=== PATIENT | male | born 1990 | race Caucasian/White ===

== ENCOUNTER 2024-08-22 15:20 | Inpatient (IN) | payer BC, SELFPAY ==
[2024-08-22] VITALS (11 sets, daily range): BP systolic 111–138; BP diastolic 73–90; PULSE 68–117; RESP 14–24; TEMP 37.7–37.8; O2SAT 95–99; BMI 30.7; BMI 31.7
--- NOTE | 2024-08-22 17:03 | XRR_ITS ---
PROCEDURE INFORMATION: Exam: XR Left Foot Exam date and time: 08/22/2024 5:16 PM Age: 34 years old Clinical indication: Pain; Foot; Left; Lt great toe wound/infection; Concern for osteomyelitits TECHNIQUE: Imaging protocol: Radiologic exam of the left foot. Views: 3 or more views. COMPARISON: No relevant prior studies available. FINDINGS: Bones/joints: Cortical irregularity and bony resorption of the distal 1st phalanx with associated gas locules and soft tissue distortion of the tip of the 1st distal consistent with osteomyelitis. Atherosclerotic disease. Soft tissues: See Bones/joints finding. XR/XR foot LT min 3V* [id number] IMPRESSION: Osteomyelitis.
[2024-08-22] MEDS: piperacillin-tazobactam 3.375 GM in sodium chloride 0.9% (plus) 50 ML IV (17:13)
[2024-08-22] MEDS: sodium chloride 0.9% 1,000 ML 999 ML IV ×2 (17:13→18:26)
[2024-08-22 17:15] LABS: Basophils # 0.1 10^3/uL (0.0-0.1); Basophils % 0.5 %; Eosinophils % 0.2 %; Hematocrit 32.3 % (37-53); Lymphocytes # 1.5 10^3/uL (0.8-4.8); Lymphocytes % 10.9 %; Mean Corpuscular HGB Conc 33.7 g/dL (30-55); Mean Corpuscular Hemoglobin 27.9 pg (27-33); Mean Corpuscular Volume 82.8 fl (82-101); Mean Platelet Volume 9.4 fL (7.4-10.4); Monocytes # 1.1 10^3/uL (0.2-0.9); Monocytes % 8.3 %; Neutrophils # 10.98 10^3/uL (1.8-7.7); Neutrophils % 79.4 %; Nucleated Red Blood Cells % 0 %; Platelet Count 318 10^3/cmm (157-399); Red Cell Distribution Width 11.5 % (12.1-15.1); White Blood Count 13.81 10^3/uL (3.29-11.43)
[2024-08-22] MEDS: VANCOMYCIN ADD-Vantage 1,000 MG in 0.9% NaCl ADD-Vantage 250 ML 250 MG IV (17:16)
[2024-08-22 17:23] LABS: Lactic Sepsis W/Reflex 1.2 mmol/L (0.5-2.2)
[2024-08-22 17:24] LABS: Alanine Aminotransferase 23 U/L (0-41); Albumin Level 3.1 g/dL (3.5-5.2); Alkaline Phosphatase 102 U/L (40-130); Anion Gap 19.8 (5-19); Aspartate Amino Transferase 23 U/L (0-40); Blood Urea Nitrogen 9 mg/dL (6-20); C Reactive Protein 189.3 mg/L (0.0-4.9); Calcium 8.2 mg/dL (8.5-10.5); Carbon Dioxide 20 mmol/L (22-29); Chloride 92 mmol/L (98-107); Creatinine Clr Calc Pharmacy 158.4303; Globulin 3.9 g/dL (1.3-4.6); Glomerular Filtration Rate 109.4 mL/min (90-130); Glucose 394 mg/dL (65-115); Osmolality Calculated 281 mOsm/kg (285-295); Potassium 3.8 mmol/L (3.5-5.1); Sodium 128 mmol/L (136-145); Total Bilirubin 0.7 mg/dL (0.15-1.2)
[2024-08-22 17:30] LABS: Slide Review Slide Review Perform
[2024-08-22 17:31] LABS: Erythrocyte Sedimentation Rate 45 mm/hr (0-10)
--- NOTE | 2024-08-22 17:32 | ECG_ITS ---
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
--- NOTE | 2024-08-22 18:04 | ED_ITS ---
HPI - Extremity Problem 2 General: Chief complaint: Extremity Problem,Nontraumatic Stated complaint: lft leg swelling - discoloration on lft foot Time Seen by Provider: 08/22/24 15:54 History of Present Illness: Patient is a male who presents with worsening left great toe infection. He reports a chronic history of toe problems spanning multiple years with intermittent self-treatment using isopropyl alcohol. The condition significantly deteriorated following a recent 12.5-hour flight from the [facility] where he spent two weeks visiting his fianc?e. Since returning on night, he has noticed increased swelling, black tissue formation on the plantar surface, and a foul odor. The patient reports pain radiating up to just below his knee on the left side. He denies any fever. Patient has historically avoided medical care due to previous negative experiences in the . Of note, patient was previously evaluated for possible diabetes but reports being told he did not have it. He denies any previous professional medical treatment for this condition. Related Data Allergies Allergy/AdvReac Type Severity Reaction Status Date / Time No Known Allergies Allergy Verified 08/22/24 15:28 Course 2 Vital Signs: Vital signs: Vital Signs Temperature 99.8 F H 08/22/24 15:21 Pulse Rate 99 08/22/24 18:48 Respiratory Rate 24 H 08/22/24 18:48 Blood Pressure 115/86 08/22/24 18:48 Pulse Oximetry 99 08/22/24 18:48 Oxygen Delivery Me thod Room Air 08/22/24 18:48 MDM - Extremity (Nontraumatic) Medical Decision Making ROS: Constitutional: Denies fever Cardiovascular: Denies chest pain Respiratory: Denies shortness of breath Gastrointestinal: Denies nausea or vomiting Musculoskeletal: Reports left leg pain below knee All other systems reviewed and negative MEDICATIONS AND ALLERGIES: Medications: - Multivitamin Allergies: - No known drug allergies PAST HISTORICAL DATA: Past Medical History: - No significant medical history Social History: - 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 Mucous membranes moist Neck: Supple Respiratory: No increased work of breathing, no wheezing Cardiac: Tachycardic, regular rhythm Abdomen: Soft, non-distended, no rebound or guarding Extremities: - Left great toe: Circumferential redness with denuded/raw tissue - Black eschar noted on plantar surface - Foul-smelling drainage present - Proximal redness extending to left foot with swelling and warmth - Left calf with mild tenderness and swelling - Right lower extremity normal Neuro: Sensation intact in feet INITIAL IMPRESSION AND PLAN: Working Diagnosis: Left great toe osteomyelitis with gangrene, possible deep space infection, and newly diagnosed diabetes mellitus Plan: 1. IV antibiotics 2. Left foot X-ray 3. Lower extremity ultrasound to rule out DVT 4. Laboratory studies including CBC, CMP, CRP, lactic acid 5. Podiatry consultation 6. Admission to hospital TEST INTERPRETATIONS: X-ray Left Foot: Bony erosion of left great toe distal phalanx consistent with osteomyelitis. Gas formation noted within soft tissues concerning for deep space infection Laboratory Results: - WBC: 13.8 (Elevated) - Hemoglobin: 10.9 (Low) - Hematocrit: 32 (Low) - Platelets: 318 - Sodium: 128 (Low) - Potassium: 3.8 - Bicarbonate: 20 - BUN: 9 - Creatinine: 0.8 - Glucose: 394 (Significantly elevated) - Lactic acid: 1.2 - CRP: 189 (Significantly elevated) PROCEDURES: No procedures performed in the ED FINAL IMPRESSION: Based on all the above, my clinical impression is most compatible with: 1. Left great toe osteomyelitis with gangrene 2. Newly diagnosed diabetes mellitus 3. Cellulitis with possible deep space infection Although other conditions were also considered, they were deemed unlikely based on the clinical information available. CLINICAL DISPOSITION: The patient's current condition is stable but requires immediate intervention. The most appropriate and indicated disposition at this time is admission to the hospital under Dr. Sprague (Hospitalist) with Podiatry consultation for surgical management. Rationale for admission: Patient requires admission due to severe infection with osteomyelitis, newly diagnosed diabetes requiring management, and likely need for surgical intervention. The presence of gangrene, elevated inflammatory markers, and radiographic evidence of bone involvement necessitates inpatient management with IV antibiotics and close monitoring. RISK STRATIFICATION AND CLINICAL DECISION RULES APPLIED: No specific clinical decision rules were applicable to this presentation CASE SUMMARY: Patient presented with chronic left great toe infection that significantly worsened after recent international travel. Examination revealed gangrenous changes and imaging confirmed osteomyelitis. Labs demonstrated leukocytosis, newly diagnosed diabetes (glucose 394), and elevated inflammatory markers. Podiatry evaluated the patient and recommended admission for IV antibiotics and surgical management. The case is complicated by newly diagnosed diabetes and the presence of bone involvement requiring long-term antibiotic therapy and likely amputation. SEPSIS COMPLIANCE: Patient does not meet sepsis criteria as lactic acid is 1.2 DISCHARGE INSTRUCTIONS: Patient is being admitted to the hospital; discharge instructions deferred to the primary team Lab Data 08/22/24 15:55 08/22/24 15:55 Radiology Impressions Foot X-Ray 08/22/24 17:03 IMPRESSION: Osteomyelitis. Laboratory Results WBC 13.81 10^3/uL (3.29-11.43) H 08/22/24 15:55 RBC 3.90 10^6/uL (3.85-5.65) 08/22/24 15:55 Hgb 10.90 g/dL (11.27-16.99) L 08/22/24 15:55 Hct 32.3 % (37-53) L 08/22/24 15:55 MCV 82.8 fl (82-101) 08/22/24 15:55 MCH 27.9 pg (27-33) 08/22/24 15:55 MCHC 33.7 g/dL (30-55) 08/22/24 15:55 RDW 11.5 % (12.1-15.1) L 08/22/24 15:55 Plt Count 318 10^3/cmm (157-399) 08/22/24 15:55 MPV 9.4 fL (7.4-10.4) 08/22/24 15:55 Neut % (Auto) 79.4 % 08/22/24 15:55 Lymph % (Auto) 10.9 % 08/22/24 15:55 [place] % (Auto) 8.3 % 08/22/24 15:55 Eos % (Auto) 0.2 % 08/22/24 15:55 Baso % (Auto) 0.5 % 08/22/24 15:55 Neut # (Auto) 10.98 10^3/uL (1.8-7.7) H 08/22/24 15:55 Lymph # (Auto) 1.5 10^3/uL (0.8-4.8) 08/22/24 15:55 [place] # (Auto) 1.1 10^3/uL (0.2-0.9) H 08/22/24 15:55 Eos # (Auto) 0.0 10^3/uL (0.0-0.8) 08/22/24 15:55 Baso # (Auto) 0.1 10^3/uL (0.0-0.1) 08/22/24 15:55 Nucleated RBC % (auto) 0 % 08/22/24 15:55 Nucleated RBCs # 0.0 /100WBC 08/22/24 15:55 ESR 45 mm/hr (0-10) H 08/22/24 15:55 Sodium 128 mmol/L (136-145) L 08/22/24 15:55 Potassium 3.8 mmol/L (3.5-5.1) 08/22/24 15:55 Chloride 92 mmol/L (98-107) L 08/22/24 15:55 Carbon Dioxide 20 mmol/L (22-29) L 08/22/24 15:55 Anion Gap 19.8 (5-19) H 08/22/24 15:55 BUN 9 mg/dL (6-20) 08/22/24 15:55 Creatinine 0.8 mg/dL (0.7-1.2) 08/22/24 15:55 GFR Calculation 109.4 mL/min (90-130) 08/22/24 15:55 Glucose 394 mg/dL (65-115) H 08/22/24 15:55 Calculated Osmolality 281 mOsm/kg (285-295) L 08/22/24 15:55 Lactic Acid 1.2 mmol/L (0.5-2.2) 08/22/24 15:55 Calcium 8.2 mg/dL (8.5-10.5) L 08/22/24 15:55 Total Bilirubin 0.7 mg/dL (0.15-1.2) 08/22/24 15:55 AST 23 U/L (0-40) 08/22/24 15:55 ALT 23 U/L (0-41) 08/22/24 15:55 Alkaline Phosphatase 102 U/L (40-130) 08/22/24 15:55 C-Reactive Protein 189.3 mg/L (0.0-4.9) H 08/22/24 15:55 Total Protein 7.0 g/dL (6.6-8.7) 08/22/24 15:55 Albumin 3.1 g/dL (3.5-5.2) L 08/22/24 15:55 Globulin 3.9 g/dL (1.3-4.6) 08/22/24 15:55 Discharge Plan Discharge Condition: Stable Print Language: Greenlandic Coding Level of Care Code ED Auto Phone Installer for Carlee Cunningham
--- NOTE | 2024-08-22 19:19 | USR_ITS ---
PROCEDURE INFORMATION: Exam: US Duplex Left Lower Extremity Veins, Limited Exam date and time: 08/22/2024 8:24 PM Age: 34 years old Clinical indication: Edema, localized; Lower extremity, left; Additional info: Left leg swelling and pain TECHNIQUE: Imaging protocol: Real-time duplex ultrasound of the left extremity with 2-D lieberman scale, color Doppler flow and spectral waveform analysis including responses to compression and other maneuvers (when performed) with image documentation. Limited exam focused on the left lower extremity veins. COMPARISON: CR (LOW EXM, ) 08/22/2024 5:16 PM FINDINGS: Left deep veins: Unremarkable. The common femoral, femoral, proximal profunda femoral and popliteal veins are patent without thrombus. Normal Doppler waveforms. Normal compressibility and/or augmentation response. Superficial veins: Greater saphenous vein at the saphenofemoral junction is patent without thrombus. Soft tissues: Unremarkable. US/[place] [id number] IMPRESSION: No evidence of deep vein thrombosis in the left lower extremity.
--- NOTE | 2024-08-22 19:20 | P.CONIM_ITS ---
Providers/Reason For Consult 2 Consulting Physician/Specialty*: Goodman Marrero/podiatry Reason for Consult*: Gangrene left foot History of Present Illness History of Present Illness Luther Abdullahi is a 34 year old male presenting to the emergency department with worsening of wound to the left great toe, states that he has been battling ingrowing toenail infections of his left great toe intermittently for years, current episode of infection began several weeks ago, he was out of the country visiting his now [facility] and the [facility] for the past 2 weeks and spent time at the beach and was wearing sandals, patient is unaware of being diabetic. States that on his flight home from the [facility] he noticed foul odor increased redness and poor appearing wound states he decided to come to the emergency room department today, he lives in [place], works for a [employer]. States he had lunch this afternoon, denies any fevers or chills or lack of appetite. Patient denies any subjective nausea, vomiting, fever, chills, shortness of breath or chest pain. Review of Systems 2 General: Reports: 10 or more systems reviewed and unremarkable except in HPI and below Const: Denies: fever(s) or chills Eyes: Denies: change in vision Card: Denies: chest pain or palpitations Resp: Denies: dyspnea or productive cough GI: Denies: abdominal pain, nausea or vomiting : Denies: flank pain Musc: Reports: extremity swelling, joint stiffness and deformity Skin/Breast: Reports: erythema, sores, changes in skin color, dry skin, nail changes and change in hair Neuro: Reports: numbness in extremities, sensory changes and difficulty walking Psych: Denies: suicidal ideation Endo: Denies: change in body appearance Fito/Lymph: Denies: tender lymph nodes Medications/Allergies Allergies Allergy/AdvReac Type Severity Reaction Status Date / Time No Known Allergies Allergy Verified 08/22/24 15:28 Vitals/I&O/Wt Last Vital Signs Temp 99.8 F H 08/22/24 15:21 Pulse 99 08/22/24 18:48 Resp 24 H 08/22/24 18:48 BP 115/86 08/22/24 18:48 Pulse Ox 99 08/22/24 18:48 O2 Del Method Room Air 08/22/24 18:48 08/22/24 08/22/24 08/22/24 06:59 14:59 22:59 Intake Total 1300 / 1300 Balance 1300 / 1300 Weight last 48 hrs Weight 227 lb Physical Exam 2 Narrative: Gangrenous left great toe with cellulitis of the left forefoot, left great toe plantarly has necrosis of soft tissue down to bone with foul odor. Ingrowing toenail right great toe with mild erythema at the medial lateral border as well as clear fluid-filled bullae distal plantar tuft of right great toe. Const: COMMON NORMALS: no acute distress, patient oriented x3 and alert HENMT: COMMON NORMALS: normocephalic HEAD & SCALP: normocephalic Eye: COMMON NORMALS: Equal, round and reactive pupils present PUPIL: Yes Equal, round and reactive pupils present Resp: COMMON NORMALS: normal respiratory effort, No retractions and No use of accessory muscles Cardio: COMMON NORMALS: regular rate RATE: regular rate Extremity: COMMON NORMALS: no calf tenderness; negative for no pedal edema GENERAL: Yes deformity Neuro: COMMON NORMALS: patient oriented x3 SENSORIUM/ORIENTATION: Yes alert SENSORY EXAM: Yes extremities MONOFILAMENT EXAM PERFORMED: Yes MOTOR EXAM: 5/5 motor strength present throughout Psych: COMMON NORMALS: cooperative Skin: WOUNDS: Yes wounds noted NAILS: discolored, dystrophic and yellow and thickened Data 08/22/24 15:55 08/22/24 15:55 Micro: Microbiology 08/22/24 15:58 Blood Culture - Preliminary Blood SPECIMEN COLLECTED 08/22/24 15:55 Blood Culture - Preliminary Blood SPECIMEN COLLECTED A&P Assessment and plan (1) Diabetic peripheral neuropathy associated with type 2 diabetes mellitus: (2) Cellulitis of left foot: (3) Non-pressure chronic ulcer of other part of right foot with necrosis of bone: Performed bedside excisional debridement of left great toe with sterile dermal curette, explored wound and excisionally debrided devitalized epidermis, dermis, subcutaneous tissue myofascial layer and down to including bone at hallux interphalangeal joint left foot. Patient tolerated with minor discomfort secondary to neuropathy, postdebridement wound culture taken of the left great toe sent to microbiology for Gram stain culture and sensitivity. Dressing Betadine wet-to-dry left foot. (4) Gangrene of toe of left foot: (5) Ingrowing right great toenail: (6) Paronychia of great toe, right: Dressing of Kerlix and Coban covering right great toe. Plan 34-year-old newly diagnosed diabetic male presents with gangrenous changes to left great toe and paronychia of right great toe secondary to ingrown nail. X-ray left foot 3 views per my interpretation shows bone destruction of the distal phalanx greater than 50% of the phalanx has osteolysis and destructive/erosive changes consistent with osteomyelitis, soft tissue emphysema at left right toe. White blood cell count 13.8, ESR 51, glucose 394, C-reactive protein 189.3 Debridement as above, wound culture as above left great toe. Recommend admission to hospital service on IV antibiotics empirically plan for left great toe amputation and ingrowing nail avulsion right great toe tomorrow a.m., n.p.o. at midnight. Anticipating delayed closure due to the extent of surrounding cellulitis and poor surrounding soft tissue at amputation site. Patient might be a candidate for PICC line and long-term IV antibiotics pending intraoperative findings. PDMP PDMP Reviewed: Not Reviewed Consult Attestations 2 Medical Necessity Statement: Acute osteomyelitis left great toe, uncontrolled diabetes, gangrene left great toe requires hospital admission on IV antibiotics and surgical intervention. Coding Level of Care Code Acute Code for [facility] Diagnoses Diabetic peripheral neuropathy associated with type 2 diabetes mellitus E11.42 Cellulitis of left foot L03.116 Non-pressure chronic ulcer of other part of right foot with necrosis of bone L97.514 Gangrene of toe of left foot I96 Ingrowing right great toenail L60.0 Paronychia of great toe, right L03.031 Comment CPT code 22768
--- NOTE | 2024-08-22 19:22 | W.ED.EXTPRO ---
HPI - Extremity Problem General: Chief complaint: Extremity Problem,Nontraumatic Stated complaint: lft leg swelling - discoloration on lft foot Time Seen by Provider: 08/22/24 15:54 History of Present Illness: Patient is a male who presents with worsening left great toe infection. He reports a chronic history of toe problems spanning multiple years with intermittent self-treatment using isopropyl alcohol. The condition significantly deteriorated following a recent 12.5-hour flight from the [facility] where he spent two weeks visiting his fianc?e. Since returning on night, he has noticed increased swelling, black tissue formation on the plantar surface, and a foul odor. The patient reports pain radiating up to just below his knee on the left side. He denies any fever. Patient has historically avoided medical care due to previous negative experiences in the . Of note, patient was previously evaluated for possible diabetes but reports being told he did not have it. He denies any previous professional medical treatment for this condition. Related Data Allergies Allergy/AdvReac Type Severity Reaction Status Date / Time No Known Allergies Allergy Verified 08/22/24 15:28 Course Vital Signs: Vital signs: Vital Signs Temperature 99.8 F H 08/22/24 15:21 Pulse Rate 100 08/22/24 20:07 Respiratory Rate 21 H 08/22/24 20:07 Blood Pressure 122/78 08/22/24 20:07 Pulse Oximetry 97 08/22/24 20:07 Oxygen Delivery Me thod Room Air 08/22/24 18:48 MDM - Extremity (Nontraumatic) Medical Decision Making ROS: Constitutional: Denies fever Cardiovascular: Denies chest pain Respiratory: Denies shortness of breath Gastrointestinal: Denies nausea or vomiting Musculoskeletal: Reports left leg pain below knee All other systems reviewed and negative MEDICATIONS AND ALLERGIES: Medications: - Multivitamin Allergies: - No known drug allergies PAST HISTORICAL DATA: Past Medical History: - No significant medical history Past Surgical History: - Nasal surgery at age 2 Social History: - 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 Mucous membranes moist Neck: Supple Respiratory: No increased work of breathing, no wheezing Cardiac: Tachycardic, regular rhythm Abdomen: Soft, non-distended, no rebound or guarding Extremities: - Left great toe: Circumferential redness with denuded/raw tissue - Black eschar noted on plantar surface - Foul-smelling drainage present - Proximal redness extending to left foot with swelling and warmth - Left calf with mild tenderness and swelling - Right lower extremity normal Neuro: Sensation intact in feet INITIAL IMPRESSION AND PLAN: Working Diagnosis: Left great toe osteomyelitis with gangrene, possible deep space infection, and newly diagnosed diabetes mellitus Plan: 1. IV antibiotics 2. Left foot X-ray 3. Lower extremity ultrasound to rule out DVT 4. Laboratory studies including CBC, CMP, CRP, lactic acid 5. Podiatry consultation 6. Admission to hospital TEST INTERPRETATIONS: X-ray Left Foot: Bony erosion of left great toe distal phalanx consistent with osteomyelitis. Gas formation noted within soft tissues concerning for deep space infection Laboratory Results: - WBC: 13.8 (Elevated) - Hemoglobin: 10.9 (Low) - Hematocrit: 32 (Low) - Platelets: 318 - Sodium: 128 (Low) - Potassium: 3.8 - Bicarbonate: 20 - BUN: 9 - Creatinine: 0.8 - Glucose: 394 (Significantly elevated) - Lactic acid: 1.2 - CRP: 189 (Significantly elevated) FINAL IMPRESSION: Based on all the above, my clinical impression is most compatible with: 1. Left great toe osteomyelitis with gangrene 2. Newly diagnosed diabetes mellitus 3. Cellulitis with possible deep space infection CLINICAL DISPOSITION: The patient's current condition is stable but requires immediate intervention. The most appropriate and indicated disposition at this time is admission to the hospital under Dr. Sprague (Hospitalist) with Podiatry consultation for surgical management. Rationale for admission: Patient requires admission due to severe infection with osteomyelitis, newly diagnosed diabetes requiring management, and likely need for surgical intervention. The presence of gangrene, elevated inflammatory markers, and radiographic evidence of bone involvement necessitates inpatient management with IV antibiotics and close monitoring. CASE SUMMARY: Patient presented with chronic left great toe infection that significantly worsened after recent international travel. Examination revealed gangrenous changes and imaging confirmed osteomyelitis. Labs demonstrated leukocytosis, newly diagnosed diabetes (glucose 394), and elevated inflammatory markers. Podiatry evaluated the patient and recommended admission for IV antibiotics and surgical management. The case is complicated by newly diagnosed diabetes and the presence of bone involvement requiring long-term antibiotic therapy and likely amputation. SEPSIS COMPLIANCE: Patient does not meet sepsis criteria as lactic acid is 1.2 Lab Data I reviewed the patient's lab results. 08/22/24 15:55 08/22/24 15:55 Radiology Impressions Foot X-Ray 08/22/24 17:03 IMPRESSION: Osteomyelitis. Laboratory Results WBC 13.81 10^3/uL (3.29-11.43) H 08/22/24 15:55 RBC 3.90 10^6/uL (3.85-5.65) 08/22/24 15:55 Hgb 10.90 g/dL (11.27-16.99) L 08/22/24 15:55 Hct 32.3 % (37-53) L 08/22/24 15:55 MCV 82.8 fl (82-101) 08/22/24 15:55 MCH 27.9 pg (27-33) 08/22/24 15:55 MCHC 33.7 g/dL (30-55) 08/22/24 15:55 RDW 11.5 % (12.1-15.1) L 08/22/24 15:55 Plt Count 318 10^3/cmm (157-399) 08/22/24 15:55 MPV 9.4 fL (7.4-10.4) 08/22/24 15:55 Neut % (Auto) 79.4 % 08/22/24 15:55 Lymph % (Auto) 10.9 % 08/22/24 15:55 [place] % (Auto) 8.3 % 08/22/24 15:55 Eos % (Auto) 0.2 % 08/22/24 15:55 Baso % (Auto) 0.5 % 08/22/24 15:55 Neut # (Auto) 10.98 10^3/uL (1.8-7.7) H 08/22/24 15:55 Lymph # (Auto) 1.5 10^3/uL (0.8-4.8) 08/22/24 15:55 [place] # (Auto) 1.1 10^3/uL (0.2-0.9) H 08/22/24 15:55 Eos # (Auto) 0.0 10^3/uL (0.0-0.8) 08/22/24 15:55 Baso # (Auto) 0.1 10^3/uL (0.0-0.1) 08/22/24 15:55 Nucleated RBC % (auto) 0 % 08/22/24 15:55 Nucleated RBCs # 0.0 /100WBC 08/22/24 15:55 ESR 45 mm/hr (0-10) H 08/22/24 15:55 ESR 51 mm/hr (0-10) H 08/22/24 15:55 Sodium 128 mmol/L (136-145) L 08/22/24 15:55 Potassium 3.8 mmol/L (3.5-5.1) 08/22/24 15:55 Chloride 92 mmol/L (98-107) L 08/22/24 15:55 Carbon Dioxide 20 mmol/L (22-29) L 08/22/24 15:55 Anion Gap 19.8 (5-19) H 08/22/24 15:55 BUN 9 mg/dL (6-20) 08/22/24 15:55 Creatinine 0.8 mg/dL (0.7-1.2) 08/22/24 15:55 GFR Calculation 109.4 mL/min (90-130) 08/22/24 15:55 Glucose 394 mg/dL (65-115) H 08/22/24 15:55 Calculated Osmolality 281 mOsm/kg (285-295) L 08/22/24 15:55 Lactic Acid 1.2 mmol/L (0.5-2.2) 08/22/24 15:55 Calcium 8.2 mg/dL (8.5-10.5) L 08/22/24 15:55 Total Bilirubin 0.7 mg/dL (0.15-1.2) 08/22/24 15:55 AST 23 U/L (0-40) 08/22/24 15:55 ALT 23 U/L (0-41) 08/22/24 15:55 Alkaline Phosphatase 102 U/L (40-130) 08/22/24 15:55 C-Reactive Protein 189.3 mg/L (0.0-4.9) H 08/22/24 15:55 Total Protein 7.0 g/dL (6.6-8.7) 08/22/24 15:55 Albumin 3.1 g/dL (3.5-5.2) L 08/22/24 15:55 Globulin 3.9 g/dL (1.3-4.6) 08/22/24 15:55 All radiology interpretation(s) finalized by discharge Discharge Plan Discharge Patient Disposition: Admitted As Inpatient Clinical Impression: Cellulitis, Gangrene, Osteomyelitis Condition: Stable Coding Level of Care Code ED Interactive Developer for Carlee Cunningham
[2024-08-22 19:36] LABS: Erythrocyte Sedimentation Rate 51 mm/hr (0-10)
--- NOTE | 2024-08-22 19:54 | PC.NURSE ---
Pt declined pain meds x 3. Pt verbalized understanding to let nursing or provider know if he would like pain meds.
--- NOTE | 2024-08-22 22:33 | P.HP_ITS ---
Providers/Chief Complaint 2 Admitting Physician: Perla Singh MD Chief Complaint: lft leg swelling - discoloration on lft foot History of Present Illness Luther Abdullahi is a 34 yo man [employer] with no medical hx except for a hx of I&D of the posterior neck in 2019, who presents to the ED on 08/22/2024 w/ complaints of L. foot pain and swelling as well as malodorous drainage of the L. great toe. The patient states that he has had difficulty with the L. great toes for years, consisting of in-grown toe nails and wounds. He states that he returned from the [facility] on 08/18/2024. He felt tenderness on the L. great toe on 08/19, but felt that it was due to him being on the plane for 12.5 hrs. On 08/20, the tenderness did not improve. By 08/21, he started noticing malodorous drainage, so he cleaned it w/ isopropyl alcohol and bandaged it. On 08/22 while meeting his parents after mu-ism, his parents noticed that he had difficulty walking and suggested that he present to the ED. He was visiting the [facility] for 2 weeks and he recalls stepping on something in the ocean and scratched the great toe. He endorses chills, but he associated it with the change in weather from the tropical climate of the [facility] to the 60 degree weather here. He endorses fatigue and malaise, but attributed it to malaise and fatigue. He denies visual disturbances, CP, palpitations, SOB, GI or symptoms. Of note, he tells me that in 2019, when he was getting the I & D of his posterior neck in [place], [place], the nurse for the physician doing the I&D mentioned that he might have had diabetes, but the physician told her that they did not have time to address that. In the ED, he was tachycardic and tachypneic. He had a leukocytosis of 13.81, and a lactic acid of 1.2. He was given 2 L NS IVF bolus, Vanco, 3.375 g Zosyn in the ED. The lead network architect was consulted who plans to take the patient to the OR in the a.m. The Staff Veterinarian also took wound cx. Review of Systems 2 Const: Reports: chills, fatigue and malaise; Denies: fever(s), body aches, night sweats or diaphoresis Eyes: Denies: change in vision or blurry vision ENMT: Denies: odynophagia, ear or mastoid pain, ear discharge, nasal discharge or nasal congestion Card: Reports: swelling of feet/ankles; Denies: chest pain, lightheadedness or syncope Resp: Reports: productive cough; Denies: dyspnea or wheezing GI: Denies: abdominal pain, nausea, vomiting, diarrhea, constipation, hematochezia or melena : Denies: dysuria, urinary frequency, urinary urgency or hematuria Musc: Reports: joint pain (L. foot and L. great toe pain ) and joint swelling (L. foot and L. great toe pain ) Skin/Breast: Reports: erythema, skin tenderness and new lesions Neuro: Denies: headache(s), dizziness or seizure-like activity Psych: Denies: anxiety, depression, suicidal ideation or homicidal ideation Endo: Denies: polyuria, polydipsia, tired all the time, cold intolerance or heat intolerance Fito/Lymph: Denies: easy bruising or easy bleeding All/Imm: Denies: food intolerance Medications/Allergies Allergies Allergy/AdvReac Type Severity Reaction Status Date / Time No Known Allergies Allergy Verified 08/22/24 15:28 PFSH Acute 2 PFSH: Surgical History History of nasal surgery at age 3 due to being hit by a baseball. History of incision and drainage of his posterior neck due to a spider bite in 2018 Family History (Updated 08/22/24 @ 22:46 by Perla Singh MD) Father Diabetes mellitus, type 2 Hypertension Atrial fibrillation Social History (Updated 08/22/24 @ 23:31 by Perla Singh MD) Smoking and tobacco/nicotine status: never used tobacco/nicotine Alcohol intake: never Substance/Drug Use: former Date of last use: 2021 Former substance use details: last tried an edible in 2021 Vitals/I&O/Wt Last Vital Signs Temp 100.0 F H 08/22/24 21:23 Pulse 99 08/22/24 21:23 Resp 19 H 08/22/24 21:23 BP 133/90 08/22/24 21:23 Pulse Ox 97 08/22/24 21:23 O2 Del Method Room Air 08/22/24 21:23 08/22/24 08/22/24 08/22/24 06:59 14:59 22:59 Intake Total 2300 / 2300 Balance 2300 / 2300 Weight last 48 hrs Weight 106.141 kg Weight 102.965 kg Physical Exam 2 Narrative: Constitutional: GENERAL APPEARANCE: cooperative, comfortable. HENT: HEAD & SCALP: normocephalic and atraumatic; NOSE: external nose not normal EXTERNAL EAR: no external ears normal MOUTH: Normal oral and palatal mucosa present THROAT: posterior oropharynx normal Eye: PERRL, EOMI, normal conjunctiva b/l Neck: normal visual inspection, trachea midline, No anterior neck swelling, No tracheal deviation, no submandibular swelling, Thyroid normal , cervical ROM normal Lymph: no cervical, supraclavicular LAD Resp: no use of accessory muscles, CTAB, no w/r/r Cardio: RRR, no m/r/g, or clicks. 2+ radial and DP pulses. GI: normoactive bowel sounds, non-tender, non-distended, no guarding, no rigidity, no rebound tenderness, no hepatosplenomegaly. : (-) Junior in place draining urine, (-) CVA tenderness Back/Pelvis: Deferred Extremity: R. in-grown toe-nail wrapped. L. toe wrapped w/ malodorous drainage noted on the soaked gauze. L. foot is swollen Neuro: AO to person, place and time. CN normal except as noted. Normal gait present. 5/5 motor strength present throughout. Normal motor muscle tone present throughout. No tremor noted. No motor abnormalities present. No motor fasciculations present Psych: APPEARANCE: Yes grossly normal ATTITUDE: Yes calm and Yes engaged ACTIVITY/MOTOR BEHAVIOR: Yes appropriate eye contact SPEECH: Yes normal speech MOOD & AFFECT: Yes euthymic mood THOUGHT PROCESS: Normal thought process present THOUGHT CONTENT: Yes Normal thought content present ATTENTION/CONCENTRATION: Yes attention grossly intact MEMORY/COGNITION: Yes memory grossly intact Data 08/23/24 04:25 08/23/24 04:25 Micro: Microbiology 08/22/24 15:58 Blood Culture - Preliminary Blood SPECIMEN COLLECTED 08/22/24 15:55 Blood Culture - Preliminary Blood SPECIMEN COLLECTED A&P Assessment and plan (1) Sepsis: (2) Diabetic wet gangrene of the foot: (3) Paronychia of great toe, right: (4) Cellulitis of left foot: (5) Ingrowing right great toenail: Plan Luther Abdullahi is a 34 yo man [employer] with no medical hx except for a hx of I&D of the posterior neck in 2019, who presents to the ED on 08/22/2024 w/ complaints of L. foot pain and swelling as well as malodorous drainage of the L. great toe. #Sepsis #L. Great Toe wet gangrene #L. Great toe Cellulitis and Abscess #Concern for osteomyelitis - ESR, CRP ordered. MRI of L. foot ordered. - Podiatry consulted. Plan for OR in the AM. Patient made n.p.o. after midnight - F/u BCx,Wound Cx done in the ED. - Continue Vanc/Zosyn, IVF. Pain control ordered. #Ingrown R. great toe nail - To be addressed in the OR by the Staff Veterinarian?, according to the patient. #newly dx'ed DM2 - F/u A1c. Ordered Insulin lantus 20units BID + low-dose SSI with meals + high dose SSI with meals. -Counseled patient on his diabetes diagnosis, and the need for PCP. Did not discuss the need for opthalmology eval. - F/u lipid panel. DVT ppx: Nothing for now. Pending Operation. PDMP PDMP Reviewed: Not Reviewed Attestations 2 Medical Necessity Statement*: The patient is to be hospitalized for greater than 2 midnights for sepsis, left great toe gangrene, left great toe cellulitis with abscess concerning for osteomyelitis, and new onset diabetes. Coding Level of Care Code 31674 High Time for a total of 80 minutes, includes reviewing past or interval history, examining/interviewing patient, placing orders, counseling patient/family/other support, updating patient/family/other support, discussing plan of care with staff, communicating with other healthcare providers, documenting encounter and coordinating care Other Coding Information Focused coding review requested Diagnoses Sepsis A41.9 Diabetic wet gangrene of the foot E11.52 Paronychia of great toe, right L03.031 Cellulitis of left foot L03.116 Ingrowing right great toenail L60.0
[2024-08-22 23:45] LABS: Estmated Average Glucose 306; Hemoglobin A1C 12.3 % (4.0-6.0)
[2024-08-22 23:49] LABS: Erythrocyte Sedimentation Rate 64 mm/hr (0-10)
[2024-08-23] VITALS (19 sets, daily range): BP systolic 103–149; BP diastolic 56–95; PULSE 78–102; RESP 16–18; TEMP 36.6–37.6; O2SAT 91–98
[2024-08-23] MEDS: sodium chloride 0.9% 1,000 ML 500 ML IV (00:05)
[2024-08-23 00:16] LABS: Procalcitonin 0.28 ng/mL (0-0.5); Thyroid Stimulating Hormone 1.14 uIU/mL (0.27-4.20)
[2024-08-23] MEDS: piperacillin-tazobactam 4.5 GM in sodium chloride 0.9% (plus) 50 ML IV ×3 (00:24→14:55)
[2024-08-23 00:28] LABS: Anion Gap 17.6 (5-19); Blood Urea Nitrogen 6 mg/dL (6-20); Calcium 7.7 mg/dL (8.5-10.5); Carbon Dioxide 21 mmol/L (22-29); Chloride 99 mmol/L (98-107); Creatinine Clr Calc Pharmacy 257.1585; Glomerular Filtration Rate 188.1 mL/min (90-130); Glucose 243 mg/dL (65-115); Osmolality Calculated 284 mOsm/kg (285-295); Potassium 3.6 mmol/L (3.5-5.1); Sodium 134 mmol/L (136-145)
[2024-08-23 00:31] LABS: Glucose Point of Care 228 mg/dL (70-110)
[2024-08-23] MEDS: ketorolac 30 mg/mL INJ IVP ×2 (00:50→20:06)
[2024-08-23] MEDS: insulin glargine 100 units/1 mL 20 UNIT SUBCUT ×3 (00:51→22:03)
[2024-08-23] MEDS: vancomycin 1,500 MG/300 ML PIGGYBACK 300 MG IV ×3 (01:38→22:01)
--- NOTE | 2024-08-23 03:22 | PC.NURSE ---
patient came to the floor from the ER department per wheel chair, dad at bedside. patient is NPO at this time for amputation of his left great toe. foot wrapped with gauze and kyaw bandage per dr mena in er. patient alert and oriented to person place date and time. patient blodd pressure stable at 133/87. patient running a low grade fever of 100.0 oral. patient blood sugar is 243, hospitalist dr egan ordered 20units of lantus insulin to be given. patient tolerated well. patient has NKA. patient has no complaints of pain or discomfort at this time.
[2024-08-23] MEDS: lactated ringers 1,000 ML 100 ML IV ×2 (04:17→17:11)
[2024-08-23 04:44] LABS: Basophils # 0.1 10^3/uL (0.0-0.1); Basophils % 0.5 %; Eosinophils # 0.1 10^3/uL (0.0-0.8); Eosinophils % 0.6 %; Hematocrit 28.7 % (37-53); Lymphocytes # 1.8 10^3/uL (0.8-4.8); Lymphocytes % 16.3 %; Mean Corpuscular HGB Conc 32.8 g/dL (30-55); Mean Corpuscular Hemoglobin 28.1 pg (27-33); Mean Corpuscular Volume 85.7 fl (82-101); Mean Platelet Volume 9.1 fL (7.4-10.4); Monocytes # 0.8 10^3/uL (0.2-0.9); Monocytes % 7.3 %; Neutrophils # 8.16 10^3/uL (1.8-7.7); Neutrophils % 74.7 %; Nucleated Red Blood Cells % 0 %; Platelet Count 281 10^3/cmm (157-399); Red Blood Count 3.35 10^6/uL (3.85-5.65); Red Cell Distribution Width 11.6 % (12.1-15.1); White Blood Count 10.93 10^3/uL (3.29-11.43)
[2024-08-23 04:57] LABS: INR 1.13 (0.8-1.2); Partial Thromboplastin Time 33.3 SECONDS (23.9-36.7)
[2024-08-23 05:03] LABS: Alanine Aminotransferase 18 U/L (0-41); Albumin Level 2.7 g/dL (3.5-5.2); Alkaline Phosphatase 89 U/L (40-130); Anion Gap 14.5 (5-19); Aspartate Amino Transferase 13 U/L (0-40); Blood Urea Nitrogen 7 mg/dL (6-20); Calcium 7.5 mg/dL (8.5-10.5); Carbon Dioxide 23 mmol/L (22-29); Chloride 103 mmol/L (98-107); Creatinine Clr Calc Pharmacy 214.0801; Globulin 3.6 g/dL (1.3-4.6); Glomerular Filtration Rate 152.4 mL/min (90-130); Glucose 208 mg/dL (65-115); Osmolality Calculated 288 mOsm/kg (285-295); Phosphorus 2.7 mg/dL (2.5-4.5); Potassium 3.5 mmol/L (3.5-5.1); Sodium 137 mmol/L (136-145); Total Bilirubin 0.5 mg/dL (0.15-1.2); Total Protein 6.3 g/dL (6.6-8.7)
[2024-08-23] MEDS: pantoprazole 40 mg SDV IVP (05:57)
[2024-08-23 06:46] LABS: Glucose Point of Care 232 mg/dL (70-110)
--- NOTE | 2024-08-23 07:08 | PHA.VACGOAL ---
Vancomycin Goal - Goal Vancomycin Goal:: 15-20 mg/L Vancomycin Indication:: Osteo - Therapy Current therapy:: Pip/Tazo Day of therpy:: Day [1]of [] . Actual body weight (kg): 105.914 kg - Data Labs: WBC 10.93 10^3/uL (3.29-11.43) 08/23/24 04:25 RBC 3.35 10^6/uL (3.85-5.65) L 08/23/24 04:25 Hgb 9.40 g/dL (11.27-16.99) L 08/23/24 04:25 Hct 28.7 % (37-53) L 08/23/24 04:25 MCV 85.7 fl (82-101) 08/23/24 04:25 MCH 28.1 pg (27-33) 08/23/24 04:25 MCHC 32.8 g/dL (30-55) 08/23/24 04:25 RDW 11.6 % (12.1-15.1) L 08/23/24 04:25 Sodium 137 mmol/L (136-145) 08/23/24 04:25 Potassium 3.5 mmol/L (3.5-5.1) 08/23/24 04:25 Chloride 103 mmol/L (98-107) 08/23/24 04:25 Carbon Dioxide 23 mmol/L (22-29) 08/23/24 04:25 Anion Gap 14.5 (5-19) 08/23/24 04:25 BUN 7 mg/dL (6-20) 08/23/24 04:25 Creatinine 0.6 mg/dL (0.7-1.2) L 08/23/24 04:25 GFR Calculation 152.4 mL/min (90-130) H 08/23/24 04:25 Treatment plan:: new consult Regimen:: New start vancomycin for Osteomyelitis. No prior vancomycin history found. Received 1000 mg dose in ED on 08/22 @1700. Started on maintenance dose of 1500 mg q12h by telepharmacy. Dose adjusted to 1500 mg q8h due to renal function and goal trough range of 15-20 mg/L.
[2024-08-23 07:59] LABS: Chol HDL Ratio 6.43 mg/dL (1.0-5.00); Cholesterol 135 mg/dL (0-200); HDL Cholesterol 21 mg/dL (60-100); LDL Cholesterol Calculated 95 mg/dL (50-129); LDL HDL Ratio 4.52 RATIO (0.00-3.22); Triglycerides 94 mg/dL (0-150)
[2024-08-23] MEDS: sodium chloride 0.9% 1,000 ML 30 ML IV (08:00)
--- NOTE | 2024-08-23 09:16 | ANES.PREANE2 ---
Pre-Anesthetic Assessment Height/Weight: Height 1.83 m Weight 105.914 kg Temp Pulse Resp BP Pulse Ox O2 Del Method 99.6 F 78 18 140/84 98 Room Air 08/23/24 08:00 08/23/24 08:00 08/23/24 08:00 08/23/24 08:00 08/23/24 07:35 08/23/24 07:35 Operation Date: 08/23/24 09:05 Proposed Procedures p Partial amputation of left foot(Left) - Saturnino Person DPM Familial anesthetic complications: Noen Was Beta Senia taken within 24 hours: N/A Was Clonidine taken within 24 hours: N/A Last intake: > 8 hrs Social No alcohol and No tobacco Exam alert, oriented x 3, clear to auscultation bilaterally and regular rate & rhythm Airway Mallampati: Class II Dentition: full Metabolic Diabetes Mellitus (newly diagnosed - not on any medications) Anesthetic Plan ASA status: 3 Anesthesia: MAC Risk of > 500 ml blood loss (7ml/kg in children): No Medications/Allergies Home Medications ?Medication ?Instructions ?Recorded ?Confirmed ?Last Taken ?Type No Known Home Medications 08/23/24 08/23/24 Unknown History Allergies Allergy/AdvReac Type Severity Reaction Status Date / Time No Known Allergies Allergy Verified 08/22/24 15:28 Current Medications Generic Name Dose Route Start Last Admin Trade Name Tony PRN Reason Stop Dose Admin Piperacillin Sod/Tazobactam 50 mls @ 12.5 mls/hr 08/23/24 00:00 08/23/24 04:17 Sod 4.5 gm/ Sodium Chloride IV Infused Q8H KIMBERLY Infusion Protocol Lactated Ringer's 1,000 mls @ 100 mls/hr 08/23/24 00:30 08/23/24 04:17 Lactated Ringers IV 100 mls/hr .Q10H KIMBERLY Administration Insulin Glargine 20 unit 08/23/24 00:30 08/23/24 00:51 Insulin Glargine 100 Units/1 Ml SUBCUT 20 unit BEDTIME KIMBERLY Administration Insulin Human Lispro 0 unit 08/23/24 08:00 08/23/24 08:33 Insulin Lispro 100 Unit/1 Ml SUBCUT Not Given TIDWM KIMBERLY Protocol Ketorolac Tromethamine 30 mg 08/23/24 00:12 08/23/24 00:50 Ketorolac 30 Mg/Ml Inj IVP 08/25/24 00:11 30 mg Q6H PRN Administration MODERATE PAIN PFSH Anesthesia Surgical History History of nasal surgery at age 3 due to being hit by a baseball. History of incision and drainage of his posterior neck due to a spider bite in 2019 Family History (Updated 08/22/24 @ 22:46 by Perla Singh MD) Father Diabetes mellitus, type 2 Hypertension Atrial fibrillation Social History (Updated 08/22/24 @ 23:31 by Perla Singh MD) Smoking and tobacco/nicotine status: never used tobacco/nicotine Alcohol intake: never Substance/Drug Use: former Date of last use: 2021 Former substance use details: last tried an edible in 2021 Data Anesthesia 08/23/24 04:25 08/23/24 04:25 Short CBC 08/22/24 08/23/24 Range/Units 15:55 04:25 WBC 13.81 H 10.93 (3.29-11.43) 10^3/uL Hgb 10.90 L 9.40 L (11.27-16.99) g/dL Hct 32.3 L 28.7 L (37-53) % MCV 82.8 85.7 (82-101) fl Plt Count 318 281 (157-399) 10^3/cmm Neut % (Auto) 79.4 74.7 % Neut # (Auto) 10.98 H 8.16 H (1.8-7.7) 10^3/uL BMP 08/22/24 08/22/24 08/23/24 15:55 23:24 04:25 Sodium 128 L 134 L 137 Potassium 3.8 3.6 3.5 Chloride 92 L 99 103 Carbon Dioxide 20 L 21 L 23 BUN 9 6 7 Creatinine 0.8 0.5 L 0.6 L Glucose 394 H 243 H 208 H Calcium 8.2 L 7.7 L 7.5 L Liver Function 08/22/24 08/23/24 Range/Units 15:55 04:25 Total Bilirubin 0.7 0.5 (0.15-1.2) mg/dL AST 23 13 (0-40) U/L ALT 23 18 (0-41) U/L Alkaline Phosphatase 102 89 (40-130) U/L Albumin 3.1 L 2.7 L (3.5-5.2) g/dL Coags 08/22/24 08/22/24 08/22/24 15:55 15:55 15:55 ESR 45 H 51 H 64 H PT INR APTT C-Reactive Protein 189.3 H 08/23/24 04:25 ESR Cancelled PT 15.30 H INR 1.13 APTT 33.3 C-Reactive Protein Microbiology 08/22/24 15:58 Blood Culture - Preliminary Blood SPECIMEN COLLECTED 08/22/24 15:55 Blood Culture - Preliminary Blood SPECIMEN COLLECTED
[2024-08-23] MEDS: BUPivacaine 0.5% INJ 30 mL INJECTION (09:35)
[2024-08-23] MEDS: lidocaine 1% 10 ML INJ 20 ML INJECTION (09:35)
--- NOTE | 2024-08-23 10:00 | P.BOP_ITS ---
Date of Procedure: 06/13/23 Surgeon: Saturnino Person DPM Foiling Machine Adjuster(s): Mendy Procedure(s) performed: Left great toe amputation. Total toenail avulsion right great toe. Findings of the procedure(s): Gangrene left great toe, paronychia right great toe. Estimated blood loss: 10 mL Specimen(s) removed: Left great toe sent to pathology for permanent, bone from left great toe sent to microbiology for Gram stain culture and sensitivity. Post-operative diagnosis: Left foot gangrene. Right hallux paronychia.
--- NOTE | 2024-08-23 10:01 | PM.OP ---
Operative Report Date of procedure: August 23, 2024 Pre-op diagnosis: Gangrene left great toe with necrosis of bone L97.514 Cellulitis left foot. Ingrowing toenail with paronychia right great toe. Diabetic foot infection left foot exposed to muscle and fascia. L97.513 Post-op diagnosis: Same Post-op findings: Purulence and flexor tendon sheath at flexor hallucis longus with tracking proximally to the distal forefoot. Procedure done: 1) left great toe amputation. CPT code 95348 2) total toenail avulsion right great toe. CPT code 84027 3) incision and debridement down to myofascial layer left foot. CPT code 21912 Implants: None Specimens removed/disposition: Bone from left great toe sent to microbiology for Gram stain culture and sensitivity. Pathology: Left great toe sent to pathology for permanent Surgeon: Saturnino Person DPM Correctional Classification Counselor: Mendy Estimated blood loss: 10 11 IV fluids: See intraoperative documentation Urine output: No urine output Complications: No complications Findings: Abscess with devitalized tissue down to muscle tendon and fascia left foot Brief History: Luther Abdullahi is a 34 year old male presenting to the emergency department with worsening of wound to the left great toe, states that he has been battling ingrowing toenail infections of his left great toe intermittently for years, current episode of infection began several weeks ago, he was out of the country visiting his [facility] the [facility] for the past 2 weeks and spent time at the beach and was wearing sandals, patient is unaware of being diabetic. States that on his flight home from the [facility] he noticed foul odor increased redness and poor appearing wound states he decided to come to the emergency room department today, he lives in [place], works for a [employer]. States he had lunch this afternoon, denies any fevers or chills or lack of appetite. Patient denies any subjective nausea, vomiting, fever, chills, shortness of breath or chest pain. X-ray left foot 3 views per my interpretation shows bone destruction of the distal phalanx greater than 50% of the phalanx has osteolysis and destructive/erosive changes consistent with osteomyelitis, soft tissue emphysema at left right toe. White blood cell count 13.8, ESR 51, glucose 394, C-reactive protein 189.3 Recommend admission to hospital service on IV antibiotics empirically plan for left great toe amputation and ingrowing nail avulsion right great toe. Anticipating delayed closure due to the extent of surrounding cellulitis and poor surrounding soft tissue at amputation site. Patient might be a candidate for PICC line and long-term IV antibiotics pending intraoperative findings. Procedure: Under mild sedation the patient was brought to the operating room and remained on the gurney in supine position. A timeout was performed. Anesthesia was then administered by the anesthesia service. Local anesthesia injected by myself consisting of 20 cc of 1 #1 mixture 1% lidocaine and 0.5 to Marcaine plain in a left Baldwin block fashion. Additional 6 cc injected right hallux in a hallux block fashion. Well-padded pneumatic tourniquet applied to the left ankle. The left lower extremity was scrubbed, prepped and draped utilizing normal aseptic technique. Left foot was elevated and tourniquet inflated to 250 mmHg. Attention was directed to the left foot where the left hallux was noted to have gangrenous changes with devitalized soft tissue and bone exposed of the left great toe with foul odor and cellulitis to the level of the left midfoot. [place] incision was carried out full-thickness through skin down to bone with a #10 blade at the level of the left first metatarsal phalangeal joint this was at the level of demarcation of devitalized tissue versus viable tissue, the left great toe was sharply disarticulated through the metatarsal phalangeal joint and passed from the operative field. Bone from the distal phalanx was sent to microbiology for Gram stain culture and sensitivity in the left great toe was sent to pathology for gross anatomical review. The incision was irrigated with copious amounts of Tessalon solution. Encountered tracking with purulence and devitalized tendon about the left flexor hallucis longus tendon, the incision was extended more proximally at the medial aspect of the left forefoot to allow further debridement excisionally in nature with pickups and a #15 blade, purulence was encountered plantar to the left first metatarsal head and sesamoid apparatus and flexor tendons this was sharply excisionally debrided down to myofascial layer of all devitalized tissue. The incision was irrigated with copious amounts of sterile saline solution. The flexor hallucis longus tendon was transected under traction at this most proximal margin and noted to have viable transection. After further irrigation all bleeders were ligated and cauterized as necessary. Postdebridement wound measurements 2 cm x 2.5 cm x 0.5 cm Left medial forefoot. Due to residual cellulitis at the left forefoot intraoperative decision was made to allow continued IV antibiotics during his hospitalization for possible delayed closure should soft tissue improve over the next 2 to 3 days. Left foot was dressed with saline wet-to-dry gauze, Kerlix, fluff and Coban. Tourniquet was deflated and a prompt hyperemic response is noted to the digits 2 through 5 of the left foot. Attention was directed to the right hallux, Vinicius drain was applied to act as a tourniquet, [place]rie elevator utilized to free the right great toenail from soft tissue attachments both plantarly and dorsally, of note there was ingrowing medial lateral border with localized erythema at the right great toe. The right great toenail was avulsed in total with a hemostat and the nailbed was inspected and noted to be intact. Toenail was passed from operative field. The right great toe was irrigated with saline solution and dressed with Adaptic, sterile 4 x 4 gauze, Gaurang and Coban. [place] drain was removed and a prompt hyperemic response was noted to the right great toe. Patient tolerated the procedure and anesthesia well and was transferred to the PACU with vital signs stable vascular status intact. Following a period of postop monitoring, transferred back to the floor to continue empiric antibiotics will monitor his clinical response to surgical intervention and IV antibiotics anticipating delayed closure of the left foot later this week. Recommend PICC line for approximately 6-week course of IV antibiotics.
--- NOTE | 2024-08-23 10:28 | ANE.PACU2 ---
Inpatient post-anesthesia follow up: Airway intact: Yes Vital signs: Temperature 98.1 F Pulse Rate 88 Respiratory Rate 17 Blood Pressure 109/71 Pulse Oximetry 92 Oxygen Delivery Me thod Room Air Oxygen Flow Rate Fraction of Inspir ed Oxygen Hydration adequate: Yes Nausea and vomiting: No Pain level: 1 Mental status: Baseline
[2024-08-23 10:40] LABS: Glucose Point of Care 207 mg/dL (70-110)
[2024-08-23 11:19] LABS: Glucose Point of Care 207 mg/dL (70-110)
[2024-08-23] MEDS: sennosides 8.6 mg Tablet 17.2 MG PO (11:28)
[2024-08-23] MEDS: insulin lispro 100 unit/1 mL SUBCUT ×2 (11:50→18:17)
--- NOTE | 2024-08-23 12:10 | PC.NURSE ---
Gave patient 4 units of insulin at 1150 under bedtime...
--- NOTE | 2024-08-23 12:25 | XRR_ITS ---
PROCEDURE INFORMATION: Exam: XR Left Foot Exam date and time: 08/23/2024 1:39 PM Age: 34 years old Clinical indication: Other: Post op lt foot; Prior surgery; Surgery date: Post-operative (0-2 days); Additional info: Postop TECHNIQUE: Imaging protocol: Radiologic exam of the left foot. Views: 3 or more views. COMPARISON: CR (LOW EXM, ) 08/22/2024 5:16 PM FINDINGS: Bones/joints: There has been interval surgical amputation of the phalanges of the great toe. Remaining osseous structures appear intact. There is mild flexion of the interphalangeal joints of the 2nd toe limiting evaluation. Soft tissues: There is diffuse soft tissue edema surrounding the forefoot. Lucency surrounding the soft tissues of the great toe is compatible with air from recent surgery. Vascular calcification is noted. XR/XR foot LT min 3V* [id number] IMPRESSION: Status post amputation of the phalanges of the great toe with diffuse edema and postsurgical air as described.
--- NOTE | 2024-08-23 15:01 | PM.PN ---
Subjective Subjective: Overnight labs and H&P reviewed. Patient is status post left great toe amputation and incision and debridement down to the myofascial layer of the left foot. Medications: Reviewed: Yes Vitals/I&O/Wt Last Vital Signs Temp 98.2 F 08/23/24 13:30 Pulse 93 08/23/24 13:30 Resp 18 08/23/24 13:30 BP 115/70 08/23/24 13:30 Pulse Ox 95 08/23/24 13:30 O2 Del Method Room Air 08/23/24 13:30 08/23/24 08/23/24 08/23/24 06:59 14:59 22:59 Intake Total 1350 / 3650 2640 / 2640 Output Total Balance 1350 / 3650 2630 / 2630 Weight last 48 hrs Weight 105.914 kg Weight 106.141 kg Weight 102.965 kg Physical Exam Narrative: General: No acute distress, AO x3 HEENT: PERRLA, pupils bilaterally equal and reactive, pallors not present Chest: Normal vesicular breath sounds, no added sounds, equal good air entry bilaterally CVS: S1-S2 regular, no murmurs, no tachycardia, no gallops, no rubs Abdomen: Soft, nontender, no organomegaly, bowel sounds present Neuro: No focal deficits, no facial deformity, AO x3, power 5/5 in all limbs Data 08/23/24 04:25 08/23/24 04:25 Micro: Microbiology 08/23/24 09:42 Gram Stain - Final Toe - #1 08/22/24 18:57 Gram Stain - Final Toe - #1 08/22/24 15:58 Blood Culture - Preliminary Blood SPECIMEN COLLECTED 08/22/24 15:55 Blood Culture - Preliminary Blood SPECIMEN COLLECTED A&P Assessment and plan (1) Sepsis: (2) Diabetic wet gangrene of the foot: (3) Paronychia of great toe, right: (4) Cellulitis of left foot: (5) Ingrowing right great toenail: Plan Luther Abdullahi is a 34 yo man [employer] with no medical hx except for a hx of I&D of the posterior neck in 2019, who presents to the ED on 08/22/2024 w/ complaints of L. foot pain and swelling as well as malodorous drainage of the L. great toe. #Sepsis #L. Great Toe wet gangrene #L. Great toe Cellulitis and Abscess #Concern for osteomyelitis - ESR, CRP ordered. MRI of L. foot ordered. - Podiatry consulted. Plan for OR in the AM. Patient made n.p.o. after midnight - F/u BCx,Wound Cx done in the ED. - Continue Vanc/Zosyn, IVF. Pain control ordered. #Ingrown R. great toe nail - To be addressed in the OR by the Fiction [employer] Nonfiction Writer [employer]?, according to the patient. #newly dx'ed DM2 - F/u A1c. Ordered Insulin lantus 20units BID + low-dose SSI with meals + high dose SSI with meals. -Counseled patient on his diabetes diagnosis, and the need for PCP. Did not discuss the need for opthalmology eval. - F/u lipid panel. DVT ppx: Nothing for now. Pending Operation. August 23, 2024 Patient is status post or intervention today. Underwent amputation of the great toe. Infection was noted to be tracking more proximally into the tendons and possibly up to the sesamoids. Patient will likely need 6 weeks of IV antibiotics given proximal tracking noted. He is planned for a delayed primary closure on . Will plan on 6 weeks of IV antibiotics dependent on cultures from the OR today. PICC line to be placed once blood cultures are definitively negative for 48 hours at least. In the interim continue piperacillin/tazobactam and vancomycin Patient has a new diagnosis of diabetes mellitus, HbA1c at 12.3. Patient reports that in 2018 he had a similar infection over the back which progressed quickly. There was a suspicion that patient may be diabetic at the time however no further testing was performed. Patient has not seen a PCP in many years. Discussed with the patient that given his young age at onset, possibly even dating back to 2019, I cannot conclusively rule out type 1 diabetes. For now given his A1c being at 12, we will plan on discharge with insulin Lantus and Premeal with follow-up recommended with endocrinology for further evaluation for feasibility of switch to OHA's in the future once A1c improves. PDMP PDMP Reviewed: Not Reviewed Attestations Medical Necessity Statement*: Status post IR intervention today, continued need of IV antibiotics Coding Level of Care Code Acute Code for Chg Fwd Diagnoses Sepsis A41.9 Diabetic wet gangrene of the foot E11.52 Paronychia of great toe, right L03.031 Cellulitis of left foot L03.116 Ingrowing right great toenail L60.0
[2024-08-23 16:39] LABS: Glucose Point of Care 169 mg/dL (70-110)
[2024-08-23 20:25] LABS: Glucose Point of Care 249 mg/dL (70-110)
[2024-08-24] VITALS (8 sets, daily range): BP systolic 138–151; BP diastolic 84–92; PULSE 84–92; RESP 16–21; TEMP 36.6–37.4; O2SAT 94–97
[2024-08-24] MEDS: piperacillin-tazobactam 4.5 GM in sodium chloride 0.9% (plus) 50 ML IV ×3 (00:25→16:57)
[2024-08-24] MEDS: lactated ringers 1,000 ML 100 ML IV (03:12)
[2024-08-24 05:14] LABS: Basophils # 0.1 10^3/uL (0.0-0.1); Basophils % 0.6 %; Eosinophils # 0.1 10^3/uL (0.0-0.8); Eosinophils % 1.3 %; Hematocrit 28.5 % (37-53); Lymphocytes # 1.8 10^3/uL (0.8-4.8); Lymphocytes % 18.2 %; Mean Corpuscular HGB Conc 32.6 g/dL (30-55); Mean Corpuscular Hemoglobin 27.7 pg (27-33); Mean Corpuscular Volume 84.8 fl (82-101); Mean Platelet Volume 9.1 fL (7.4-10.4); Monocytes # 0.6 10^3/uL (0.2-0.9); Monocytes % 6.3 %; Neutrophils # 7.08 10^3/uL (1.8-7.7); Neutrophils % 72.8 %; Nucleated Red Blood Cells % 0 %; Platelet Count 314 10^3/cmm (157-399); Red Blood Count 3.36 10^6/uL (3.85-5.65); Red Cell Distribution Width 11.7 % (12.1-15.1); White Blood Count 9.73 10^3/uL (3.29-11.43)
[2024-08-24 05:35] LABS: Vancomycin Trough 9.8 ug/mL (10-15)
[2024-08-24 05:40] LABS: Alanine Aminotransferase 28 U/L (0-41); Albumin Level 2.4 g/dL (3.5-5.2); Alkaline Phosphatase 102 U/L (40-130); Anion Gap 12.1 (5-19); Aspartate Amino Transferase 25 U/L (0-40); Blood Urea Nitrogen 5 mg/dL (6-20); Calcium 7.5 mg/dL (8.5-10.5); Carbon Dioxide 24 mmol/L (22-29); Chloride 106 mmol/L (98-107); Creatinine Clr Calc Pharmacy 214.0801; Globulin 3.7 g/dL (1.3-4.6); Glomerular Filtration Rate 152.4 mL/min (90-130); Glucose 130 mg/dL (65-115); Osmolality Calculated 287 mOsm/kg (285-295); Potassium 3.1 mmol/L (3.5-5.1); Sodium 139 mmol/L (136-145); Total Bilirubin 0.4 mg/dL (0.15-1.2); Total Protein 6.1 g/dL (6.6-8.7)
[2024-08-24] MEDS: vancomycin 1,500 MG/300 ML PIGGYBACK 300 MG IV (05:45)
[2024-08-24] MEDS: pantoprazole DR 40 mg Tablet PO (05:46)
[2024-08-24 06:03] LABS: Slide Review Slide Review Perform
--- NOTE | 2024-08-24 06:18 | P.PN_ITS ---
Subjective 2 Subjective: Patient was seen bedside this p.m. will still continue to be able, denies any acute events overnight, tolerating regular diet. 1 day status post left great toe amputation and I&D of left foot due to gangrene and right hallux total nail avulsion secondary to paronychia. Patient is afebrile, no leukocytosis. Vitals/I&O/Wt Last Vital Signs Temp 97.8 F 08/24/24 04:00 Pulse 86 08/24/24 04:00 Resp 17 08/24/24 04:00 BP 148/89 08/24/24 04:00 Pulse Ox 95 08/24/24 04:00 O2 Del Method Room Air 08/24/24 04:00 08/23/24 08/23/24 08/24/24 14:59 22:59 06:59 Intake Total 2640 / 2640 530 / 3170 1450 / 4620 Output Total Balance 2630 / 2630 530 / 3160 1450 / 4610 Weight last 48 hrs Weight 233 lb 8 oz Weight 234 lb Weight 227 lb Physical Exam 2 Narrative: GENERAL: Patient is alert and oriented ?3 and in no acute distress. The following is a focused bilateral lower extremity exam. VASCULAR: Dorsalis pedis palpable bilaterally. Posterior tibial arteries palpable. Capillary refill time less than 3 seconds right hallux. Calf is supple and nontender proximally and distally. Mild edema left forefoot. NEUROLOGICAL: Protective sensation diminished to light touch. DERMATOLOGICAL: Amputation site left hallux demonstrates improved cellulitis, able to visualize first metatarsal head appears viable. No purulence, no active bleeding, no proximal lymphangitic streaking, skin margins at amputation site have some duskiness at the leading margin. Right hallux nailbed is intact and well-healing without appearance or erythema. MUSCULOSKELETAL: Status post left great toe amputation. Data 08/24/24 05:00 08/25/24 05:23 Micro: Microbiology 08/22/24 15:58 Blood Culture - Preliminary Blood NEGATIVE TO DATE 08/22/24 15:55 Blood Culture - Preliminary Blood NEGATIVE TO DATE 08/23/24 09:42 Gram Stain - Final Toe - #1 08/22/24 18:57 Gram Stain - Final Toe - #1 A&P Assessment and plan (1) Diabetic peripheral neuropathy associated with type 2 diabetes mellitus: (2) Cellulitis of left foot: (3) Non-pressure chronic ulcer of other part of right foot with necrosis of bone: Performed bedside excisional debridement of left great toe with sterile dermal curette, explored wound and excisionally debrided devitalized epidermis, dermis, subcutaneous tissue myofascial layer and down to including bone at hallux interphalangeal joint left foot. Patient tolerated with minor discomfort secondary to neuropathy, postdebridement wound culture taken of the left great toe sent to microbiology for Gram stain culture and sensitivity. Dressing Betadine wet-to-dry left foot. (4) Gangrene of toe of left foot: (5) Ingrowing right great toenail: (6) Paronychia of great toe, right: Dressing of Kerlix and Coban covering right great toe. Plan 34-year-old newly diagnosed diabetic male presents with gangrenous changes to left great toe and paronychia of right great toe secondary to ingrown nail. Status post left great toe amputation and right hallux nail avulsion date of operation 08/23/2024 May heel touch with cam boot left lower extremity for transfers Dressing changed today saline wet-to-dry left foot. Wound culture taken in emergency department Gram stain significant for negative rods and positive cocci in chains and clusters Bone culture taken intraoperatively 08/23/2024 significant for negative cocci, negative rods, positive rods and positive cocci in pairs Patient scheduled for delayed closure left foot , 08/26/2024 Planning on PICC line with 6 weeks of IV antibiotics PDMP PDMP Reviewed: Not Reviewed Attestations 2 Medical Necessity Statement*: Acute osteomyelitis, gangrene, requires continued IV antibiotics, surgical cultures pending. Coding Level of Care Code Acute Code for [facility] Diagnoses Diabetic peripheral neuropathy associated with type 2 diabetes mellitus E11.42 Cellulitis of left foot L03.116 Non-pressure chronic ulcer of other part of right foot with necrosis of bone L97.514 Gangrene of toe of left foot I96 Ingrowing right great toenail L60.0 Paronychia of great toe, right L03.031
[2024-08-24 06:34] LABS: Glucose Point of Care 115 mg/dL (70-110)
--- NOTE | 2024-08-24 07:00 | MR_ITS ---
WS: [id number] EXAMINATION: MR foot LT wo/w con [id number] ORDER DATE: 08/24/2024 11:15 AM COMPARISON: None. HISTORY: L. great toe cellulitis and abscess CONTRAST: None. TECHNIQUE: Sagittal T1, sagittal STIR, coronal PD, coronal T2, axial T1, axial T2, and axial PD imaging with fat saturation technique. Post gadolinium imaging includes axial T1, coronal T1, and sagittal T1 with fat saturation technique. FINDINGS: Some images degraded by motion. Recent postoperative changes resection of the big toe at the MTP joint. Associated postoperative changes with soft tissue edema and postoperative enhancement. No evidence of drainable abscess or drainable fluid collection. Normal fatty bone marrow signal in the first metatarsal. Diffuse soft tissue edema compatible with cellulitis involving the plantar soft tissues extending into the intertarsal soft tissues. Soft tissue edema extends into the midfoot and forefoot dorsal and plantar subcutaneous and deep soft tissues. Small amount of fluid involving the MTP joints. No other acute findings. MR/MR foot LT wo/w con [id number] IMPRESSION: Some images limited by motion 1. Recent expected postoperative changes resection of the big toe. No evidence of drainable abscess or fluid collection. 2. Diffuse edema involving the dorsal and plantar soft tissues extending into the intertarsal musculature and soft tissues compatible with cellulitis and sof t tissue infection. Associated skin thickening. No drainable fluid collections. 3. No other acute findings considering limitations.
[2024-08-24] MEDS: sennosides 8.6 mg Tablet 17.2 MG PO (07:57)
[2024-08-24] MEDS: insulin glargine 100 units/1 mL 20 UNIT SUBCUT (07:58)
[2024-08-24] MEDS: potassium chloride ER 20 mEq Tablet PO (08:04)
--- NOTE | 2024-08-24 10:19 | PC.CHAP ---
Pastoral Care Encounter/Spiritual Assessment Type of Contact [] Declined flight follower visit [] Patient/Family/Request visit [] Outpatient visit [] Follow-up visit [] Physician referral [] Code/Alert [x] Routine visit [] Staff referral [] Actively dying [] Patient sleeping [] Family support [] [] Out of room [] Palliative care [] [] Receiving care in room [] Pre-surgical visit [] Trauma [] Long length of stay [] ICU visit [] Other: Relational/Emotional Strength [x] Patient feels connected with others/family/visitors/staff [] Distress [] Loneliness/isolation [] Abandonment Spirituality of Patient [x] Person of Yanira [] Attends [employer] of their [place] [x] Believes in Prayer [] Reads Bible or Denominational materials [] There are Spiritual issues to be addressed 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 Interventions [x] Prayer [x] Active listening [] Non-anxious presence [x] Spiritual/emotional support [] Crisis/trauma care [] Spiritual counseling [] Bereavement support [] Provided bereavement packet [] Provided Bible/devotional materials [] Provided toy/stuffed animal, coloring book to patient or family member [] Provided Communion [] Anointing/[place] [] Salvation [x] Completed spiritual assessment [] Other: Impact on Illness or Injury [] Angry [] Fearful [] Anxious [] Often cries [] Exhaustion [] Unable to work [] Unable to attend mandaen [] Unable to walk/stand [] Unable to read [] Unable to drive [] Unable to eat/drink [] Unable to sleep [] Unable to be with family [] Patient intubated [] Other: Summary Time spent with patient 5 min
[2024-08-24 11:03] LABS: Glucose Point of Care 147 mg/dL (70-110)
[2024-08-24] MEDS: gadobenate dimeglumine 20 mL vial IV (11:42)
[2024-08-24] MEDS: insulin lispro 100 unit/1 mL SUBCUT ×2 (12:06→17:04)
[2024-08-24] MEDS: vancomycin 1,750 MG/350 ML PIGGYBACK 175 MG IV ×2 (14:20→22:18)
--- NOTE | 2024-08-24 14:38 | P.PN_ITS ---
Subjective 2 Subjective: Afebrile, hemodynamically stable, plan for return to the OR on for delayed primary closure. Medications: Reviewed: Yes Vitals/I&O/Wt Last Vital Signs Temp 98.0 F 08/24/24 11:22 Pulse 91 08/24/24 11:22 Resp 18 08/24/24 11:22 BP 138/84 08/24/24 11:22 Pulse Ox 95 08/24/24 11:22 O2 Del Method Room Air 08/24/24 11:22 08/23/24 08/24/24 08/24/24 22:59 06:59 14:59 Intake Total 530 / 3170 1450 / 4620 950 / 950 Balance 530 / 3160 1450 / 4610 950 / 950 Weight last 48 hrs Weight 106.594 kg Weight 105.914 kg Weight 106.141 kg Weight 102.965 kg Physical Exam 2 Narrative: General: No acute distress, AO x3 HEENT: PERRLA, pupils bilaterally equal and reactive, pallors not present Chest: Normal vesicular breath sounds, no added sounds, equal good air entry bilaterally CVS: S1-S2 regular, no murmurs, no tachycardia, no gallops, no rubs Abdomen: Soft, nontender, no organomegaly, bowel sounds present Neuro: No focal deficits, no facial deformity, AO x3, power 5/5 in all limbs Data 08/24/24 05:00 08/24/24 05:00 Micro: Microbiology 08/22/24 18:57 Gram Stain - Final Toe - #1 Wound Culture - Preliminary 08/23/24 09:42 Gram Stain - Final Toe - #1 Tissue Culture - Preliminary 08/22/24 15:58 Blood Culture - Preliminary Blood NEGATIVE TO DATE 08/22/24 15:55 Blood Culture - Preliminary Blood NEGATIVE TO DATE Spec #: [id number] Amina: 08/23/24 Status: RES Req #: [id number] Recd: 08/23/24-[address]: Saturnino Person DPM Src: Velvet SpDesc: #1 Ordered: Tissue Cult GS Procedure Result Verified Site Gram Stain Final 08/23/24-1234 Result SCANT GRAM NEGATIVE COCCI SCANT GRAM NEGATIVE RODS RARE GRAM POSITIVE RODS FEW GRAM POSITIVE COCCI IN PAIRS SCANT POLYMORPHONUCLEAR NEUTROPHILS Tissue Culture Preliminary 08/24/24-1040 DAY 1, RESULTS TO FOLLOW NAME: Luther Abdullahi LOC: [facility] U #: [id number] AGE/SX: 34/M ROOM: 259 R E08/22/[address]: Milagros Pratt MD : 1990 BED: 2 D IS: FAX #: STATUS: ADM IN TLOC: Spec #: [id number] Amina: 08/22/24 Status: RES Req #: [id number] Recd: 08/22/[address]: Saturnino Person DPM Src: Toe SpDesc: #1 Ordered: WC and GS Procedure Result Verified Site Gram Stain Final 08/23/24 Result FEW GRAM NEGATIVE RODS FEW GRAM POSITIVE COCCI IN PAIRS IN CHAINS IN CLUSTERS RARE WHITE BLOOD CELLS Wound Culture Preliminary 08/24/24-110 FEW MIXED SUPERFICIAL REMI ON DAY 1 NAME: Luther Abdullahi LOC: [facility] U #: [id number] AGE/SX: 34/M ROOM: 259 R E08/22/[address]: Milagros Pratt MD : 1990 BED: 2 D IS: FAX #: STATUS: ADM IN TLOC: Spec #: [id number] Amina: 08/22/24 Status: RES Req #: [id number] Recd: 08/22/[address]: Yamil Goodson MD Src: Blood SpDesc: Ordered: Bcult Procedure Result Verified Site Blood Culture Preliminary 08/23/24-1707 NEGATIVE TO DATE Blood Culture Preliminary (changed) 08/22/24-1713 SPECIMEN COLLECTED A&P Assessment and plan (1) Sepsis: (2) Diabetic wet gangrene of the foot: (3) Paronychia of great toe, right: (4) Cellulitis of left foot: (5) Ingrowing right great toenail: Plan Luther Abdullahi is a 34 yo man [employer] with no medical hx except for a hx of I&D of the posterior neck in 2019, who presents to the ED on 08/22/2024 w/ complaints of L. foot pain and swelling as well as malodorous drainage of the L. great toe. #Sepsis #L. Great Toe wet gangrene #L. Great toe Cellulitis and Abscess #Concern for osteomyelitis - ESR, CRP ordered. MRI of L. foot ordered. - Podiatry consulted. Plan for OR in the AM. Patient made n.p.o. after midnight - F/u BCx,Wound Cx done in the ED. - Continue Vanc/Zosyn, IVF. Pain control ordered. #Ingrown R. great toe nail - To be addressed in the OR by the Custom Feed Corn Operator?, according to the patient. #newly dx'ed DM2 - F/u A1c. Ordered Insulin lantus 20units BID + low-dose SSI with meals + high dose SSI with meals. -Counseled patient on his diabetes diagnosis, and the need for PCP. Did not discuss the need for opthalmology eval. - F/u lipid panel. DVT ppx: Nothing for now. Pending Operation. August 23, 2024 Patient is status post or intervention today. Underwent amputation of the great toe. Infection was noted to be tracking more proximally into the tendons and possibly up to the sesamoids. Patient will likely need 6 weeks of IV antibiotics given proximal tracking noted. He is planned for a delayed primary closure on . Will plan on 6 weeks of IV antibiotics dependent on cultures from the OR today. PICC line to be placed once blood cultures are definitively negative for 48 hours at least. In the interim continue piperacillin/tazobactam and vancomycin Patient has a new diagnosis of diabetes mellitus, HbA1c at 12.3. Patient reports that in 2018 he had a similar infection over the back which progressed quickly. There was a suspicion that patient may be diabetic at the time however no further testing was performed. Patient has not seen a PCP in many years. Discussed with the patient that given his young age at onset, possibly even dating back to 2019, I cannot conclusively rule out type 1 diabetes. For now given his A1c being at 12, we will plan on discharge with insulin Lantus and Premeal with follow-up recommended with endocrinology for further evaluation for feasibility of switch to OHA's in the future once A1c improves. August 24, 2024 Status post surgery yesterday. Gram stain showing polymicrobial's. Culture is currently awaited. Patient would likely need 6 weeks of IV antibiotics. Final selection of antibiotic to remain dependent on cultures from the OR. Continue piperacillin/tazobactam and vancomycin for now. Last vancomycin trough at 9.8 this morning. Blood sugars are well-controlled. This morning fasting blood sugar at 128. Continue Lantus 20 units twice daily as already started and low-dose sliding scale insulin. PICC line to be placed once blood culture negative for 48 hours.Patient is planned for delayed primary closure on . PDMP PDMP Reviewed: Not Reviewed Attestations 2 Medical Necessity Statement*: Continued need for IV antibiotics for osteomyelitis, plan discharge on IV antibiotics pending OR cultures, delayed primary closure on . Coding Level of Care Code Acute Code for Chg Fwd High MDM includes number and complexity of problems actively addressed during encounter, amount and/or complexity of data reviewed/ordered and described risk of complication, morbidity or mortality of management as documented Diagnoses Sepsis A41.9 Diabetic wet gangrene of the foot E11.52 Paronychia of great toe, right L03.031 Cellulitis of left foot L03.116 Ingrowing right great toenail L60.0
[2024-08-24 16:53] LABS: Glucose Point of Care 209 mg/dL (70-110)
[2024-08-24] MEDS: ketorolac 30 mg/mL INJ IVP (19:20)
[2024-08-24 20:51] LABS: Glucose Point of Care 203 mg/dL (70-110)
[2024-08-25] VITALS (11 sets, daily range): BP systolic 134–169; BP diastolic 74–103; PULSE 84–146; RESP 16–20; TEMP 36.7–37.3; O2SAT 91–97
[2024-08-25] MEDS: piperacillin-tazobactam 4.5 GM in sodium chloride 0.9% (plus) 50 ML IV ×2 (00:41→07:43)
[2024-08-25 05:51] LABS: Basophils # 0.1 10^3/uL (0.0-0.1); Basophils % 0.6 %; Eosinophils # 0.2 10^3/uL (0.0-0.8); Eosinophils % 3.1 %; Hematocrit 30.1 % (37-53); Lymphocytes # 1.7 10^3/uL (0.8-4.8); Lymphocytes % 21.9 %; Mean Corpuscular HGB Conc 32.2 g/dL (30-55); Mean Platelet Volume 8.9 fL (7.4-10.4); Monocytes # 0.5 10^3/uL (0.2-0.9); Monocytes % 5.9 %; Neutrophils # 5.21 10^3/uL (1.8-7.7); Neutrophils % 67.2 %; Nucleated Red Blood Cells % 0 %; Platelet Count 343 10^3/cmm (157-399); Red Blood Count 3.46 10^6/uL (3.85-5.65); Red Cell Distribution Width 11.8 % (12.1-15.1); White Blood Count 7.76 10^3/uL (3.29-11.43)
[2024-08-25] MEDS: pantoprazole DR 40 mg Tablet PO (05:59)
[2024-08-25] MEDS: vancomycin 1,750 MG/350 ML PIGGYBACK 175 MG IV ×3 (05:59→22:32)
[2024-08-25 06:12] LABS: Alanine Aminotransferase 22 U/L (0-41); Albumin Level 2.4 g/dL (3.5-5.2); Alkaline Phosphatase 100 U/L (40-130); Anion Gap 12.2 (5-19); Aspartate Amino Transferase 15 U/L (0-40); Blood Urea Nitrogen 4 mg/dL (6-20); Calcium 7.7 mg/dL (8.5-10.5); Carbon Dioxide 26 mmol/L (22-29); Chloride 107 mmol/L (98-107); Glomerular Filtration Rate 152.4 mL/min (90-130); Glucose 152 mg/dL (65-115); Osmolality Calculated 294 mOsm/kg (285-295); Potassium 3.2 mmol/L (3.5-5.1); Sodium 142 mmol/L (136-145); Total Bilirubin 0.3 mg/dL (0.15-1.2); Total Protein 6.4 g/dL (6.6-8.7)
[2024-08-25 06:38] LABS: Slide Review Slide Review Perform
[2024-08-25 06:42] LABS: Glucose Point of Care 134 mg/dL (70-110)
[2024-08-25] MEDS: sennosides 8.6 mg Tablet 17.2 MG PO (07:35)
[2024-08-25] MEDS: insulin glargine 100 units/1 mL 20 UNIT SUBCUT (07:43)
--- NOTE | 2024-08-25 09:23 | XR_ITS ---
WS: [id number] Portable AP upright chest, 08/25/2024 Clinical Data: Post PICC insertion Comparison: None. Findings: The right PICC line ends in the superior vena cava. No pneumothorax is seen. XR/XR chest 1V portable [id number] Impression: Satisfactory placement of right PICC line.
--- NOTE | 2024-08-25 09:50 | P.PN_ITS ---
Subjective 2 Subjective: Patient was seen bedside this p.m. will still continue to be able, denies any acute events overnight, tolerating regular diet. Status post left great toe amputation and I&D of left foot due to gangrene and right hallux total nail avulsion secondary to paronychia. Patient is afebrile, no leukocytosis. PICC line placed today. Vitals/I&O/Wt Last Vital Signs Temp 99.0 F 08/25/24 07:39 Pulse 85 08/25/24 07:39 Resp 19 H 08/25/24 07:39 BP 153/90 08/25/24 07:39 Pulse Ox 95 08/25/24 07:39 O2 Del Method Room Air 08/25/24 07:39 08/24/24 08/25/24 08/25/24 22:59 06:59 14:59 Intake Total 1760 / 2710 400 / 3110 240 / 240 Output Total 1000 / 1000 Balance 760 / 1710 400 / 2110 240 / 240 Weight last 48 hrs Weight 235 lb Weight 235 lb Physical Exam 2 Narrative: GENERAL: Patient is alert and oriented ?3 and in no acute distress. The following is a focused bilateral lower extremity exam. VASCULAR: Dorsalis pedis palpable bilaterally. Posterior tibial arteries palpable. Capillary refill time less than 3 seconds right hallux. Calf is supple and nontender proximally and distally. Mild edema left forefoot. NEUROLOGICAL: Protective sensation diminished to light touch. DERMATOLOGICAL: Amputation site left hallux demonstrates improved cellulitis, able to visualize first metatarsal head appears viable. No purulence, no active bleeding, no proximal lymphangitic streaking, skin margins at amputation site have some duskiness at the leading margin. Right hallux nailbed is intact and well-healing without appearance or erythema. MUSCULOSKELETAL: Status post left great toe amputation. Data 08/25/24 05:23 08/25/24 05:23 Micro: Microbiology 08/22/24 18:57 Gram Stain - Final Toe - #1 Wound Culture - Preliminary 08/23/24 09:42 Gram Stain - Final Toe - #1 Tissue Culture - Preliminary A&P Assessment and plan (1) Diabetic peripheral neuropathy associated with type 2 diabetes mellitus: (2) Cellulitis of left foot: (3) Non-pressure chronic ulcer of other part of right foot with necrosis of bone: (4) Gangrene of toe of left foot: (5) Ingrowing right great toenail: (6) Paronychia of great toe, right: Dressing of bacitracin, Adaptic, Kerlix and Coban covering right great toe. Plan 34-year-old newly diagnosed diabetic male presents with gangrenous changes to left great toe and paronychia of right great toe secondary to ingrown nail. Status post left great toe amputation and right hallux nail avulsion date of operation 08/23/2024 May heel touch with cam boot left lower extremity for transfers Dressing changed today saline wet-to-dry left foot. Wound culture taken in emergency department Gram stain significant for negative rods and positive cocci in chains and clusters Bone culture taken intraoperatively 08/23/2024 significant for negative cocci, negative rods, positive rods and positive cocci in pairs Patient scheduled for delayed closure left foot , 08/26/2024 at noon. Planning on PICC line with 6 weeks of IV antibiotics PDMP PDMP Reviewed: Not Reviewed Attestations 2 Medical Necessity Statement*: Continued need for IV antibiotics for osteomyelitis, plan discharge on IV antibiotics pending OR cultures, delayed primary closure on . Coding Level of Care Code Acute Code for [facility] Fwd Diagnoses Diabetic peripheral neuropathy associated with type 2 diabetes mellitus E11.42 Cellulitis of left foot L03.116 Non-pressure chronic ulcer of other part of right foot with necrosis of bone L97.514 Gangrene of toe of left foot I96 Ingrowing right great toenail L60.0 Paronychia of great toe, right L03.031
[2024-08-25] MEDS: MEROPENEM 2,000 MG in sodium chloride 0.9% (plus) 50 ML 100 MG IV (10:39)
--- NOTE | 2024-08-25 10:39 | PICC.NOTE ---
Single lumen PICC placed to right basilic vein. Referred to vascular access nurse for PICC placement due to need for IV antibiotics x 6 weeks. Risks and benefits discussed and informed consent obtained from pt. Right arm assessed with right basilic vein measuring 4.9 mm, straight, and apparent best choice for placement. Using sterile technique and MST, right basilic vein accessed x 1 stick. Mid-arm circumference measured 10 cm from right AC 33 cm. Trimmed cath 44 cm with 0 cm external length noted. CXR shows tip in distal SVC, in good position for use per radiologist. Line secured with stat-lock. Insertion site covered with Biopatch and TSM. Report given to bedside nurse, VALERIANO Cheng. Pt educated on how to flush PICC and give antibiotic via push. [facility] mat and written educational material provided. Pt states he has family at home that will be able to assist with home antibiotics.
[2024-08-25 11:26] LABS: Glucose Point of Care 169 mg/dL (70-110)
--- NOTE | 2024-08-25 11:48 | ECG_ITS ---
[facility]: 2024-08[facility]25 Pat Name: Luther Abdullahi Department: Room: 259 Gender: Male Gut Sorter: : 1990 Requested By: Milagros Pratt Order Number: [id number] Reading MD: ALEX ANGEL Measurements Intervals Loco Rate: 142 P: 262 ND: 99 QRS: 79 QRSD: 114 T: -22 QT: 326 QTc: 503 Interpretive Statements JUNCTIONAL TACHYCARDIA, POSSIBLE ATRIAL FLUTTER POSSIBLE INFERIOR MYOCARDIAL INFARCTION , PROBABLY OLD [30 ms Q WAVE IN II/aVF] ABNORMAL RHYTHM ECG Compared to ECG 08/22/2024 17:32:11 Myocardial infarct finding now present Sinus rhythm no longer present Intraventricular conduction delay no longer present Electronically Signed On 09-01-2024 22:47:13 CDT by ALEX ANGEL [email or web address]
--- NOTE | 2024-08-25 12:02 | USCV_ITS ---
Luther Abdullahi Age: 34 Gender: M : 1990 Exam Date: 08/25/2024 18:52 Ordering Phys: Milagros Pratt MD Technologist: KRISTY Exam Location: [facility] [place] Indication: SVT BP: 169 / 103 HR: 84 Rhythm: Sinus Technical Quality: Adequate MEASUREMENTS (Male / Female) Normal Values 2D ECHO LV Diastolic Diameter PLAX 4.7 cm 4.2 - 5.9 / 3.9 - 5.3 cm IVS Diastolic Thickness 1.6 cm 0.6 - 1.0 / 0.6 - 0.9 cm IVS Systolic Thickness 2.1 cm LVPW Diastolic Thickness 1.3 cm 0.6 - 1.0 / 0.6 - 0.9 cm LVPW Systolic Thickness 1.7 cm LVOT Diameter 2.4 cm LV Ejection Fraction 2D Teich 63.6 % LV Ejection Fraction MOD 4C 69.7 % LV Ejection Fraction MOD 2C 57.2 % LV Ejection Fraction 2C AL 57.1 % LA Diameter 3.5 cm Aorta at Sinotubular Diameter 3.4 cm M-MODE LA Ao Ratio MM 1.1 AV Cusp Separation MM 2.0 cm DOPPLER AV Peak Velocity 117.0 cm/s LVOT Peak Velocity 83.0 cm/s AV Area Cont Eq vti 3.0 cm squared AV Area Cont Eq pk 3.1 cm squared MV Peak Velocity 117.0 cm/s MV Area PHT 5.1 cm squared Mitral E to A Ratio 1.4 TV Peak E Velocity 79.0 cm/s PV Peak Velocity 101.0 cm/s FINDINGS Left Ventricle Left ventricle is normal in size. LV systolic function is normal with EF of 60 to 65%. No regional wall motion abnormalities are seen. Left ventricular hypertrophy seen. Right Ventricle Normal in size and function. Right Atrium Normal in size. Echogenic structrure seen in the right atrium. Can be a catheter. Left Atrium Normal in size Mitral Valve Structurally normal mitral valve. Mild mitral regurgitation Aortic Valve Structurally normal aortic valve. No significant stenosis or regurgitation Tricuspid Valve Insufficient TR jet to calculate RVSP. Pulmonic Valve Possible pleural effusion seen Pericardium Normal Aorta Normal in size IVC Appears to be normal CONCLUSIONS LV systolic function is normal with EF of 60 to 65%. Echogenic structrure seen in the right atrium. Can be a catheter. Mild mitral regurgitation Possible pleural effusion seen No comparison studies are seen. Rahul Rowell MD (Electronically Signed) Final Date: 27 Aug 2024 09:32 S
[2024-08-25] MEDS: methylPREDNISolone sod succ 125 mg/2 mL INJ IVP (12:12)
[2024-08-25] MEDS: metoprolol tartrate 1 mg/1 mL SDV 5 mL 2.5 MG IVP (12:12)
[2024-08-25] MEDS: insulin lispro 100 unit/1 mL SUBCUT ×2 (12:12→17:55)
[2024-08-25] MEDS: metoprolol tartrate 25 mg Tablet 12.5 MG PO ×2 (13:59→21:18)
--- NOTE | 2024-08-25 15:09 | P.PN_ITS ---
Subjective 2 Subjective: Patient's heart rate went up to 150 this afternoon. On review of twelve-lead EKG this is appearing to be sinus tachycardia. Patient states he has episodes of intermittent flushing and tachycardia even at home which appears to resolve on massaging the neck. He is not aware of having had a formal diagnosis of A- fib or SVT. Medications: Reviewed: Yes Vitals/I&O/Wt Last Vital Signs Temp 98.4 F 08/25/24 11:58 Pulse 89 08/25/24 11:58 Resp 20 H 08/25/24 11:58 BP 167/97 08/25/24 11:58 Pulse Ox 97 08/25/24 11:58 O2 Del Method Room Air 08/25/24 11:58 08/25/24 08/25/24 08/25/24 06:59 14:59 22:59 Intake Total 400 / 3110 908.333 / 908.333 Balance 400 / 2110 908.333 / 908.333 Weight last 48 hrs Weight 106.594 kg Weight 106.594 kg Physical Exam 2 Narrative: General: No acute distress, AO x3 HEENT: PERRLA, pupils bilaterally equal and reactive, pallors not present Chest: Normal vesicular breath sounds, no added sounds, equal good air entry bilaterally CVS: S1-S2 regular, no murmurs, no tachycardia, no gallops, no rubs Abdomen: Soft, nontender, no organomegaly, bowel sounds present Neuro: No focal deficits, no facial deformity, AO x3, power 5/5 in all limbs Data 08/25/24 05:23 08/25/24 05:23 Micro: Microbiology 08/22/24 18:57 Gram Stain - Final Toe - #1 Wound Culture - Preliminary 08/23/24 09:42 Gram Stain - Final Toe - #1 Tissue Culture - Preliminary A&P Assessment and plan (1) Sepsis: (2) Diabetic wet gangrene of the foot: (3) Paronychia of great toe, right: (4) Cellulitis of left foot: (5) Ingrowing right great toenail: Plan Luther Abdullahi is a 34 yo man [employer] with no medical hx except for a hx of I&D of the posterior neck in 2019, who presents to the ED on 08/22/2024 w/ complaints of L. foot pain and swelling as well as malodorous drainage of the L. great toe. #Sepsis #L. Great Toe wet gangrene #L. Great toe Cellulitis and Abscess #Concern for osteomyelitis - ESR, CRP ordered. MRI of L. foot ordered. - Podiatry consulted. Plan for OR in the AM. Patient made n.p.o. after midnight - F/u BCx,Wound Cx done in the ED. - Continue Vanc/Zosyn, IVF. Pain control ordered. #Ingrown R. great toe nail - To be addressed in the OR by the [facility]?, according to the patient. #newly dx'ed DM2 - F/u A1c. Ordered Insulin lantus 20units BID + low-dose SSI with meals + high dose SSI with meals. -Counseled patient on his diabetes diagnosis, and the need for PCP. Did not discuss the need for opthalmology eval. - F/u lipid panel. DVT ppx: Nothing for now. Pending Operation. August 23, 2024 Patient is status post or intervention today. Underwent amputation of the great toe. Infection was noted to be tracking more proximally into the tendons and possibly up to the sesamoids. Patient will likely need 6 weeks of IV antibiotics given proximal tracking noted. He is planned for a delayed primary closure on . Will plan on 6 weeks of IV antibiotics dependent on cultures from the OR today. PICC line to be placed once blood cultures are definitively negative for 48 hours at least. In the interim continue piperacillin/tazobactam and vancomycin Patient has a new diagnosis of diabetes mellitus, HbA1c at 12.3. Patient reports that in 2018 he had a similar infection over the back which progressed quickly. There was a suspicion that patient may be diabetic at the time however no further testing was performed. Patient has not seen a PCP in many years. Discussed with the patient that given his young age at onset, possibly even dating back to 2019, I cannot conclusively rule out type 1 diabetes. For now given his A1c being at 12, we will plan on discharge with insulin Lantus and Premeal with follow-up recommended with endocrinology for further evaluation for feasibility of switch to OHA's in the future once A1c improves. August 24, 2024 Status post surgery yesterday. Gram stain showing polymicrobial's. Culture is currently awaited. Patient would likely need 6 weeks of IV antibiotics. Final selection of antibiotic to remain dependent on cultures from the OR. Continue piperacillin/tazobactam and vancomycin for now. Last vancomycin trough at 9.8 this morning. Blood sugars are well-controlled. This morning fasting blood sugar at 128. Continue Lantus 20 units twice daily as already started and low-dose sliding scale insulin. PICC line to be placed once blood culture negative for 48 hours.Patient is planned for delayed primary closure on . August 25, 2024 Patient was noted to have an episode of sinus tach versus SVT. He received IV metoprolol 2.5 mg following which heart rate improved at 110/min. This is noted to be sinus rhythm. Started on metoprolol 12.5 mg p.o. twice daily, with aim to uptitrate if needed. He is afebrile. This episode happened shortly after he received meropenem, changed from piperacillin/tazobactam. He does have some facial flushing. No hives. No angioedema. No trouble swallowing. States he has had episodes of palpitations at home as well. At this time it is difficult to a certain if this may have been an allergic reaction to meropenem versus an isolated episode of SVT. He was given Solu-Medrol 125 mg x 1 and IV metoprolol as noted above. OR cultures remain with for polymicrobial Gram stain, no growth thus far. PICC line was placed earlier this morning, reviewed radiology read which shows the location to be in the SVC and not the right atrium, therefore unlikely that this contributed. Start on daily metoprolol and monitor for improvement Awaiting culture results to a certain discharge antibiotics. Patient is planned for delayed primary closure in the OR tomorrow. PDMP PDMP Reviewed: Not Reviewed Attestations 2 Medical Necessity Statement*: iv abx , SVT vs sinus tach today , planned OR tomorrow Coding Level of Care Code Acute Code for Chg Fwd High MDM includes number and complexity of problems actively addressed during encounter, amount and/or complexity of data reviewed/ordered and described risk of complication, morbidity or mortality of management as documented Diagnoses Sepsis A41.9 Diabetic wet gangrene of the foot E11.52 Paronychia of great toe, right L03.031 Cellulitis of left foot L03.116 Ingrowing right great toenail L60.0
[2024-08-25] MEDS: cetylpyridinium Lozenge 1 EACH MUCOUS MEM (15:52)
[2024-08-25] MEDS: piperacillin-tazobactam 3.375 GM in sodium chloride 0.9% (plus) 50 ML IV (16:20)
[2024-08-25 16:28] LABS: Glucose Point of Care 279 mg/dL (70-110)
[2024-08-25 20:41] LABS: Glucose Point of Care 306 mg/dL (70-110)
[2024-08-25 21:15] LABS: Vancomycin Trough 13.5 ug/mL (10-15)
[2024-08-25] MEDS: morphine 4 mg/mL SDV 1 mL 2 MG IVP (21:18)
[2024-08-26] VITALS (15 sets, daily range): BP systolic 82–162; BP diastolic 55–96; PULSE 72–90; RESP 16–22; TEMP 36.3–36.8; O2SAT 92–96
[2024-08-26] MEDS: piperacillin-tazobactam 3.375 GM in sodium chloride 0.9% (plus) 50 ML IV ×3 (00:48→16:36)
[2024-08-26] MEDS: vancomycin 1,750 MG/350 ML PIGGYBACK 175 MG IV (05:53)
[2024-08-26] MEDS: pantoprazole DR 40 mg Tablet PO (05:53)
[2024-08-26 06:00] LABS: Basophils % 0.2 %; Lymphocytes # 0.9 10^3/uL (0.8-4.8); Lymphocytes % 8.9 %; Mean Corpuscular HGB Conc 32.2 g/dL (30-55); Mean Corpuscular Hemoglobin 27.5 pg (27-33); Mean Corpuscular Volume 85.3 fl (82-101); Mean Platelet Volume 9.2 fL (7.4-10.4); Monocytes # 0.3 10^3/uL (0.2-0.9); Monocytes % 3.4 %; Neutrophils # 8.63 10^3/uL (1.8-7.7); Neutrophils % 86.4 %; Nucleated Red Blood Cells % 0 %; Platelet Count 368 10^3/cmm (157-399); Red Blood Count 3.75 10^6/uL (3.85-5.65); Red Cell Distribution Width 11.8 % (12.1-15.1); White Blood Count 9.99 10^3/uL (3.29-11.43)
[2024-08-26 06:19] LABS: Alanine Aminotransferase 20 U/L (0-41); Albumin Level 2.5 g/dL (3.5-5.2); Alkaline Phosphatase 100 U/L (40-130); Aspartate Amino Transferase 10 U/L (0-40); Blood Urea Nitrogen 8 mg/dL (6-20); Calcium 7.8 mg/dL (8.5-10.5); Carbon Dioxide 24 mmol/L (22-29); Chloride 104 mmol/L (98-107); Glomerular Filtration Rate 188.1 mL/min (90-130); Glucose 296 mg/dL (65-115); Osmolality Calculated 295 mOsm/kg (285-295); Sodium 138 mmol/L (136-145); Total Bilirubin 0.3 mg/dL (0.15-1.2); Total Protein 6.5 g/dL (6.6-8.7)
[2024-08-26 06:53] LABS: Glucose Point of Care 342 mg/dL (70-110)
[2024-08-26] MEDS: insulin lispro 100 unit/1 mL SUBCUT ×3 (08:29→17:08)
[2024-08-26] MEDS: insulin glargine 100 units/1 mL 20 UNIT SUBCUT ×2 (08:32→20:51)
[2024-08-26] MEDS: metoprolol tartrate 25 mg Tablet 12.5 MG PO ×2 (08:33→20:34)
[2024-08-26 10:54] LABS: Glucose Point of Care 248 mg/dL (70-110)
--- NOTE | 2024-08-26 11:06 | PC.NURSE ---
patient left the floor for surgery at 1107am.
[2024-08-26 11:37] LABS: Glucose Point of Care 199 mg/dL (70-110)
--- NOTE | 2024-08-26 11:41 | W.PM.OPSUD ---
Surgery/Procedure H&P Update DATE OF PROCEDURE: August 26, 2024 DATE H&P PERFORMED: 08/22/24 H&P UPDATE INFORMATION: I have reviewed H&P completed within last 30 days, I have examined patient prior to procedure, No changes to prior documentation and Risks and benefits of the procedure reviewed PLANNED PROCEDURE: Operation Date: 08/23/24 09:05 Proposed Procedures p Partial amputation of left foot(Left) - Saturnino Person DPM Operation Date: 08/26/24 12:00 Proposed Procedures p Delayed Wound Closure Left Foot(Left) - Saturnino Person DPM
--- NOTE | 2024-08-26 12:00 | ANES.PREANE2 ---
Pre-Anesthetic Assessment Height/Weight: Height 1.83 m Weight 108.409 kg Temp Pulse Resp BP Pulse Ox O2 Del Method 97.5 F L 81 18 120/84 95 Room Air 08/26/24 11:34 08/26/24 11:34 08/26/24 11:34 08/26/24 11:34 08/26/24 11:34 08/26/24 11:34 Operation Date: 08/23/24 09:05 Proposed Procedures p Partial amputation of left foot(Left) - Saturnino Person DPM Operation Date: 08/26/24 12:00 Proposed Procedures p Delayed Wound Closure Left Foot(Left) - Saturnino Person DPM Familial anesthetic complications: none Was Beta Senia taken within 24 hours: N/A Was Clonidine taken within 24 hours: N/A Last Intake: 00:00 Social No alcohol and No tobacco Exam alert and oriented x 3 Airway Submandibular: within normal limits Cervical ROM: within normal limits Mallampati: Class I Dentition: full History/ROS No significant history except as noted Metabolic Diabetes Mellitus (newly diagnosed) Anesthetic Plan ASA status: 2 Anesthesia: Anesthesia Evaluation and MAC Risk of > 500 ml blood loss (7ml/kg in children): No Medications/Allergies Home Medications ?Medication ?Instructions ?Recorded ?Confirmed ?Last Taken ?Type insulin glargine 100 unit/mL (3 20 unit (0.2 mL) SUBCUT QPM #15 mL 08/25/24 Unknown Rx mL) subcutaneous pen (Lantus Solostar U-100 Insulin) insulin lispro 100 unit/mL 5 unit (0.05 mL) SUBCUT TID #15 mL 08/25/24 Unknown Rx subcutaneous pen (Humalog KwikPen (U-100) Insulin) pen needle, diabetic 29 gauge x #100 ea 08/25/24 Unknown Rx 1/2 (Ultra-Thin II Insulin Pen Johnson) Allergies Allergy/AdvReac Type Severity Reaction Status Date / Time No Known Allergies Allergy Verified 08/22/24 15:28 Current Medications Generic Name Dose Route Start Last Admin Trade Name Freq PRN Reason Stop Dose Admin Benzocaine 1 each 08/25/24 15:19 08/25/24 15:52 Cetylpyridinium Lozenge MUCOUS MEM 1 each On Hold: 08/26/24 11:17 Q2H PRN Administration Comment: Order held by Process SORE THROAT Transfer Piperacillin Sod/Tazobactam 50 mls @ 12.5 mls/hr 08/25/24 16:00 08/26/24 08:30 Sod 3.375 gm/ Sodium Chloride IV 12.5 mls/hr On Hold: 08/26/24 11:17 Q8H KIMBERLY Administration Comment: Order held by Process Protocol Transfer Sodium Chloride 1,000 mls @ 30 mls/hr 08/26/24 11:30 08/26/24 12:05 Sodium Chloride 0.9% IV 08/27/24 11:29 30 mls/hr .Q24H KIMBERLY Administration Insulin Glargine 20 unit 08/23/24 00:30 08/23/24 22:03 Insulin Glargine 100 Units/1 Ml SUBCUT 20 unit On Hold: 08/26/24 11:17 BEDTIME KIMBERLY Administration Comment: Order held by Process Transfer Insulin Glargine 20 unit 08/23/24 09:00 08/26/24 08:32 Insulin Glargine 100 Units/1 Ml SUBCUT 20 unit On Hold: 08/26/24 11:17 DAILY KIMBERLY Administration Comment: Order held by Process Transfer Insulin Human Lispro 0 unit 08/23/24 08:00 08/26/24 10:58 Insulin Lispro 100 Unit/1 Ml SUBCUT 6 unit On Hold: 08/26/24 11:17 TIDWM [facility] Administration Comment: Order held by Process Protocol Transfer Metoprolol Tartrate 12.5 mg 08/25/24 13:35 08/26/24 08:33 Metoprolol Tartrate 25 Mg Tablet PO 12.5 mg On Hold: 08/26/24 11:17 BID@0900,2100 KIMBERLY Administration Comment: Order held by Process Transfer Morphine Sulfate 2 mg 08/22/24 23:32 08/25/24 21:18 Morphine 4 Mg/Ml Sdv 1 Ml IVP 2 mg On Hold: 08/26/24 11:17 Q4H PRN Administration Comment: Order held by Process SEVERE PAIN Transfer Pantoprazole Sodium 40 mg 08/24/24 06:00 08/26/24 05:[address] 40 Mg Tablet PO 40 mg On Hold: 08/26/24 11:17 QAM KIMBERLY Administration Comment: Order held by Process Transfer Potassium Chloride 20 meq 08/24/24 08:00 08/24/24 08:04 Potassium Chloride Er 20 Meq Tablet PO 20 meq On Hold: 08/26/24 11:17 ONCE KIMBERLY Administration Comment: Order held by Process Transfer Senna 17.2 mg 08/23/24 09:00 08/26/24 08:34 Sennosides 8.6 Mg Tablet PO Not Given On Hold: 08/26/24 11:17 DAILY KIMBERLY Comment: Order held by Process Transfer [facility] Anesthesia Surgical History History of nasal surgery at age 3 due to being hit by a baseball. History of incision and drainage of his posterior neck due to a spider bite in 2019 Family History (Updated 08/22/24 @ 22:46 by Perla Singh MD) Father Diabetes mellitus, type 2 Hypertension Atrial fibrillation Social History (Updated 08/22/24 @ 23:31 by Perla Singh MD) Smoking and tobacco/nicotine status: never used tobacco/nicotine Alcohol intake: never Substance/Drug Use: former Date of last use: 2021 Former substance use details: last tried an edible in 2021 Data Anesthesia 08/26/24 05:20 08/26/24 05:20 Short CBC 08/25/24 08/26/24 Range/Units 05:23 05:20 WBC 7.76 9.99 (3.29-11.43) 10^3/uL Hgb 9.70 L 10.30 L (11.27-16.99) g/dL Hct 30.1 L 32.0 L (37-53) % MCV 87.0 85.3 (82-101) fl Plt Count 343 368 (157-399) 10^3/cmm Neut % (Auto) 67.2 86.4 % Neut # (Auto) 5.21 8.63 H (1.8-7.7) 10^3/uL BMP 08/25/24 08/26/24 05:23 05:20 Sodium 142 138 Potassium 3.2 L 4.0 Chloride 107 104 Carbon Dioxide 26 24 BUN 4 L 8 Creatinine 0.6 L 0.5 L Glucose 152 H 296 H Calcium 7.7 L 7.8 L Liver Function 08/25/24 08/26/24 Range/Units 05:23 05:20 Total Bilirubin 0.3 0.3 (0.15-1.2) mg/dL AST 15 10 (0-40) U/L ALT 22 20 (0-41) U/L Alkaline Phosphatase 100 100 (40-130) U/L Albumin 2.4 L 2.5 L (3.5-5.2) g/dL Microbiology 08/22/24 18:57 Gram Stain - Final Toe - #1 Wound Culture - Preliminary Strep agalactiae - (group b) Group g streptococcus 08/23/24 09:42 Gram Stain - Final Toe - #1 Tissue Culture - Preliminary Strep agalactiae - (group b)
[2024-08-26] MEDS: sodium chloride 0.9% 1,000 ML 30 ML IV (12:05)
[2024-08-26] MEDS: BUPivacaine 0.5% INJ 30 mL 15 ML INJECTION (12:30)
[2024-08-26] MEDS: lidocaine 1% 10 ML INJ 20 ML XX (12:36)
--- NOTE | 2024-08-26 13:02 | P.BOP_ITS ---
Date of Procedure: 06/13/23 Surgeon: Saturnino Person DPM Resident Program Specialist(s): Lukasz Procedure(s) performed: Delayed closure left foot. Findings of the procedure(s): Devitalized soft tissue that was debrided to clean margins and closure left foot. Estimated blood loss: 5 mL Specimen(s) removed: None Post-operative diagnosis: Gangrene left foot
--- NOTE | 2024-08-26 13:03 | P.OP_ITS ---
Operative Report Date of procedure: August 26, 2024 Pre-op diagnosis: Gangrene left great toe with necrosis of bone L97.514 Cellulitis left foot. Diabetic foot infection left foot exposed to muscle and fascia. L97.513 Post-op diagnosis: Same Procedure done: Secondary closure of surgical wound left foot. CPT code 83902 Implants: 2-0 Vicryl, 3-0 Prolene, 4-0 nylon. Specimens removed/disposition: None Surgeon: Saturnino Person DPM Senior Technical Support Analyst: Lukasz Estimated blood loss: 5 mL 20 minutes IV fluids: See intraoperative documentation Urine output: no urine output Complications: No complications Brief History: Patient presented to emergency department with gas gangrene of the left great toe, approximately streaking cellulitis and soft tissue of eczema as well as osteomyelitis of the distal phalanx of the left great toe and septic hallux interphalangeal joint. Also had ingrowing right great toenail with paronychia. He is status post partial right great toenail avulsion. Status post left hallux amputation through metatarsophalangeal joint left open for delayed closure after antibiotics improved surrounding soft tissue. Given the amount of soft tissue injury he has inadequate flaps for closure also still has purulent drainage at the first metatarsal head necessitating further debridement and attempted closure following debridement. I reviewed at length with the patient, the risks, potential complications, benefits, alternatives, expectations, and typical outcomes associated with the surgery. The risks and potential complications were explained in detail, including but not limited to infection, wound dehiscence or soft tissue complications, bleeding and hematoma, chronic edema, neuritis or nerve damage producing numbness or chronic pain, CRPS, failure to relieve pain or worsening pain, thick / painful / unsightly scar, limited motion / stiffness, malposition, delayed union, malunion, or nonunion, fracture, reaction to implants, anesthetic complications, venous thromboembolism, and deformity recurrence. I discussed the notion of no regrets with the patient as it pertains to complications and outcomes. The patient seemed to understand the nature of the proposed care and required convalescence. They asked appropriate questions, answered to their satisfaction. They are aware no guarantees can be made as to a satisfactory outcome and they understand there may be other possible unforeseen complications or outcomes not listed here that will be treated accordingly if they arise. There were no written or implied guarantees given to the patient. They gave informed consent to proceed. Procedure: Under mild sedation the patient was brought to the operating room and remained on the gurney in supine position. A timeout was performed. Anesthesia was administered by the anesthesia service. Local anesthesia was then injected by myself consisting of 30 cc of one-to-one mixture 1% lidocaine and 0.5% Marcaine plain in a left Baldwin block fashion. Well-padded pneumatic tourniquet applied to the left ankle. The left lower extremity was scrubbed, prepped and draped utilizing normal aseptic technique. Left foot was elevated and tourniquet inflated to 250 mmHg. Attention was directed to the left forefoot where open surgical wound from left hallux amputation was appreciated. There is white purulent drainage at the head of the first metatarsal which was turning dusky with purulence tracking plantarly to the sesamoids and flexor tendons necessitating further bone and soft tissue debridement which was carried out with sagittal saw resecting the head of the first metatarsal beveling and smoothing all rough edges with a hand rasp followed by sharp debridement of myofascial layer and devitalized tendon. Once all devitalized soft tissue and bone was debrided no further infectious or devitalized appearing tissue was appreciated the incision was irrigated with copious amounts of Irrisept antimicrobial wound lavage. Viable margins were appreciated with adequate soft tissue for closure and no further devitalized soft tissue visualized, myofascial layer was reapproximated with 2-0 Vicryl, skin closed with combination of 3-0 Prolene and 4-0 nylon. Dressings consisting of Xeroform, 4 x 4 gauze, Kerlix and Nima wrap. Patient will remain immobilized with cam boot. Tourniquet was deflated and prompt hyperemic response was noted to digits 2 through 5 of the left foot. Patient tolerated the procedure and anesthesia well and was transferred to the PACU with vital signs stable and vascular status intact. Following a period of postoperative monitoring patient will be transferred back to the floor to continue empiric IV antibiotics. PICC line placed. Greatly appreciate medical management and antibiotic recommendations from Dr. Santa HARE. No further surgical intervention anticipated during this hospitalization, will require discharge planning, antibiotic arrangements and home health, will follow-up in podiatry clinic weekly on Wednesdays. May heel touch for transfers with cam boot left foot.
--- NOTE | 2024-08-26 13:06 | PC.NURSE ---
Verbal order given to Deepika for a Glucometer Kit for this patent.
--- NOTE | 2024-08-26 13:15 | ANE.PACU2 ---
Inpatient post-anesthesia follow up: Airway intact: Yes Vital signs: Temperature 97.5 F Pulse Rate 81 Respiratory Rate 16 Blood Pressure 136/92 Pulse Oximetry 94 Oxygen Delivery Me thod Room Air Oxygen Flow Rate 8 Fraction of Inspir ed Oxygen Hydration adequate: Yes Nausea and vomiting: No Pain level: 1 Mental status: Baseline
[2024-08-26] MEDS: vancomycin 2,000 MG/400 ML PIGGYBACK 200 MG IV (13:49)
--- NOTE | 2024-08-26 15:46 | PM.PN ---
Subjective Subjective: Status post over intervention today. Elevated blood sugar today, likely from not having received Lantus yesterday due to n.p.o. status for surgery. Sliding scale has been resumed postoperatively. No further episodes of SVT. Medications: Reviewed: Yes Vitals/I&O/Wt Last Vital Signs Temp 97.5 F L 08/26/24 15:30 Pulse 81 08/26/24 15:30 Resp 16 08/26/24 15:30 BP 136/92 08/26/24 15:30 Pulse Ox 94 08/26/24 15:30 O2 Del Method Room Air 08/26/24 15:30 O2 Flow Rate 8 08/26/24 13:05 08/26/24 08/26/24 08/26/24 06:59 14:59 22:59 Intake Total 400 / 2188.333 558 / 558 Output Total 5 / 5 Balance 400 / 2188.333 553 / 553 Weight last 48 hrs Weight 108.409 kg Weight 106.594 kg Physical Exam Narrative: General: No acute distress, AO x3 HEENT: PERRLA, pupils bilaterally equal and reactive, pallors not present Chest: Normal vesicular breath sounds, no added sounds, equal good air entry bilaterally CVS: S1-S2 regular, no murmurs, no tachycardia, no gallops, no rubs Abdomen: Soft, nontender, no organomegaly, bowel sounds present Neuro: No focal deficits, no facial deformity, AO x3, power 5/5 in all limbs Data 08/26/24 05:20 08/26/24 05:20 Micro: Microbiology 08/22/24 18:57 Gram Stain - Final Toe - #1 Wound Culture - Preliminary Strep agalactiae - (group b) Group g streptococcus 08/23/24 09:42 Gram Stain - Final Toe - #1 Tissue Culture - Preliminary Strep agalactiae - (group b) A&P Assessment and plan (1) Sepsis: (2) Diabetic wet gangrene of the foot: (3) Paronychia of great toe, right: (4) Cellulitis of left foot: (5) Ingrowing right great toenail: (6) Diabetes mellitus: (7) SVT (supraventricular tachycardia): Plan Luther Abdullahi is a 34 yo man [employer] with no medical hx except for a hx of I&D of the posterior neck in 2019, who presents to the ED on 08/22/2024 w/ complaints of L. foot pain and swelling as well as malodorous drainage of the L. great toe. #Sepsis #L. Great Toe wet gangrene #L. Great toe Cellulitis and Abscess #Concern for osteomyelitis - ESR, CRP ordered. MRI of L. foot ordered. - Podiatry consulted. Plan for OR in the AM. Patient made n.p.o. after midnight - F/u BCx,Wound Cx done in the ED. - Continue Vanc/Zosyn, IVF. Pain control ordered. #Ingrown R. great toe nail - To be addressed in the OR by the Senior Advisory?, according to the patient. #newly dx'ed DM2 - F/u A1c. Ordered Insulin lantus 20units BID + low-dose SSI with meals + high dose SSI with meals. -Counseled patient on his diabetes diagnosis, and the need for PCP. Did not discuss the need for opthalmology eval. - F/u lipid panel. DVT ppx: Nothing for now. Pending Operation. August 23, 2024 Patient is status post or intervention today. Underwent amputation of the great toe. Infection was noted to be tracking more proximally into the tendons and possibly up to the sesamoids. Patient will likely need 6 weeks of IV antibiotics given proximal tracking noted. He is planned for a delayed primary closure on . Will plan on 6 weeks of IV antibiotics dependent on cultures from the OR today. PICC line to be placed once blood cultures are definitively negative for 48 hours at least. In the interim continue piperacillin/tazobactam and vancomycin Patient has a new diagnosis of diabetes mellitus, HbA1c at 12.3. Patient reports that in 2019 he had a similar infection over the back which progressed quickly. There was a suspicion that patient may be diabetic at the time however no further testing was performed. Patient has not seen a PCP in many years. Discussed with the patient that given his young age at onset, possibly even dating back to 2019, I cannot conclusively rule out type 1 diabetes. For now given his A1c being at 12, we will plan on discharge with insulin Lantus and Premeal with follow-up recommended with endocrinology for further evaluation for feasibility of switch to OHA's in the future once A1c improves. August 24, 2024 Status post surgery yesterday. Gram stain showing polymicrobial's. Culture is currently awaited. Patient would likely need 6 weeks of IV antibiotics. Final selection of antibiotic to remain dependent on cultures from the OR. Continue piperacillin/tazobactam and vancomycin for now. Last vancomycin trough at 9.8 this morning. Blood sugars are well-controlled. This morning fasting blood sugar at 128. Continue Lantus 20 units twice daily as already started and low-dose sliding scale insulin. PICC line to be placed once blood culture negative for 48 hours.Patient is planned for delayed primary closure on . August 25, 2024 Patient was noted to have an episode of sinus tach versus SVT. He received IV metoprolol 2.5 mg following which heart rate improved at 110/min. This is noted to be sinus rhythm. Started on metoprolol 12.5 mg p.o. twice daily, with aim to uptitrate if needed. He is afebrile. This episode happened shortly after he received meropenem, changed from piperacillin/tazobactam. He does have some facial flushing. No hives. No angioedema. No trouble swallowing. States he has had episodes of palpitations at home as well. At this time it is difficult to a certain if this may have been an allergic reaction to meropenem versus an isolated episode of SVT. He was given Solu-Medrol 125 mg x 1 and IV metoprolol as noted above. OR cultures remain with for polymicrobial Gram stain, no growth thus far. PICC line was placed earlier this morning, reviewed radiology read which shows the location to be in the SVC and not the right atrium, therefore unlikely that this contributed. Start on daily metoprolol and monitor for improvement Awaiting culture results to a certain discharge antibiotics. Patient is planned for delayed primary closure in the OR tomorrow. August 26, 2024 No further episodes of SVT since being started on metoprolol 12.5 mg p.o. twice daily. Will continue the same at discharge. Arrangements to be made for event monitor at the time of discharge. Echocardiogram taken, results pending Continuing piperacillin/tazobactam and vancomycin empirically. OR cultures have been updated to reflect group B and group G Streptococcus. Gram-negative rods that were noted on the Gram stain currently do not correspond to any growth. This was discussed with the micro tech who will follow-up to see if there is any growth. Discontinue vancomycin. Anticipating discharge on 6 weeks of daptomycin. Check baseline CK with a.m. labs. Will additionally add oral ciprofloxacin 500 mg twice daily for the gram-negative rods noted on Gram stain. Will continue to follow cultures post discharge to see if there is any growth noted on cultures. PICC line was placed yesterday. Patient has been educated today on how to use his insulin pens. Patient is status post over intervention today. PDMP PDMP Reviewed: Not Reviewed Attestations Medical Necessity Statement*: Status post OR intervention today. Coding Level of Care Code Acute Code for [facility] Diagnoses Sepsis A41.9 Diabetic wet gangrene of the foot E11.52 Paronychia of great toe, right L03.031 Cellulitis of left foot L03.116 Ingrowing right great toenail L60.0 Diabetes mellitus E11.9 SVT (supraventricular tachycardia) I47.10
[2024-08-26] MEDS: morphine 4 mg/mL SDV 1 mL 2 MG IVP (17:08)
[2024-08-26 17:38] LABS: Glucose Point of Care 233 mg/dL (70-110)
[2024-08-26 20:59] LABS: Glucose Point of Care 275 mg/dL (70-110)
[2024-08-27] VITALS (8 sets, daily range): BP systolic 130–160; BP diastolic 86–100; PULSE 83–87; RESP 15–17; TEMP 36.8–37.1; O2SAT 94–96
[2024-08-27] MEDS: piperacillin-tazobactam 3.375 GM in sodium chloride 0.9% (plus) 50 ML IV ×3 (00:08→08:35)
[2024-08-27] MEDS: morphine 4 mg/mL SDV 1 mL 2 MG IVP (00:13)
[2024-08-27 05:41] LABS: Basophils # 0.1 10^3/uL (0.0-0.1); Basophils % 0.5 %; Eosinophils # 0.2 10^3/uL (0.0-0.8); Eosinophils % 1.6 %; Hematocrit 30.8 % (37-53); Lymphocytes # 1.8 10^3/uL (0.8-4.8); Lymphocytes % 19.6 %; Mean Corpuscular HGB Conc 32.1 g/dL (30-55); Mean Corpuscular Hemoglobin 28.2 pg (27-33); Mean Corpuscular Volume 87.7 fl (82-101); Monocytes # 0.5 10^3/uL (0.2-0.9); Monocytes % 5.8 %; Neutrophils # 6.63 10^3/uL (1.8-7.7); Neutrophils % 71.7 %; Nucleated Red Blood Cells % 0 %; Platelet Count 363 10^3/cmm (157-399); Red Blood Count 3.51 10^6/uL (3.85-5.65); Red Cell Distribution Width 12.1 % (12.1-15.1); White Blood Count 9.25 10^3/uL (3.29-11.43)
[2024-08-27 05:59] LABS: Creatine Phosphokinase 26 U/L (39-308)
[2024-08-27 06:02] LABS: Alanine Aminotransferase 24 U/L (0-41); Albumin Level 2.5 g/dL (3.5-5.2); Alkaline Phosphatase 78 U/L (40-130); Anion Gap 13.8 (5-19); Aspartate Amino Transferase 23 U/L (0-40); Blood Urea Nitrogen 12 mg/dL (6-20); Calcium 7.5 mg/dL (8.5-10.5); Carbon Dioxide 26 mmol/L (22-29); Chloride 106 mmol/L (98-107); Creatinine Clr Calc Pharmacy 185.5566; Globulin 3.4 g/dL (1.3-4.6); Glomerular Filtration Rate 127.6 mL/min (90-130); Glucose 158 mg/dL (65-115); Osmolality Calculated 297 mOsm/kg (285-295); Potassium 3.8 mmol/L (3.5-5.1); Sodium 142 mmol/L (136-145); Total Bilirubin 0.2 mg/dL (0.15-1.2); Total Protein 5.9 g/dL (6.6-8.7)
[2024-08-27] MEDS: pantoprazole DR 40 mg Tablet PO (06:04)
--- NOTE | 2024-08-27 06:15 | P.PN_ITS ---
Subjective 2 Subjective: Patient seen bedside this a.m., denies any acute events overnight, tolerating regular diet. Denies pain at the left foot. Hopeful for discharge home today. Vitals/I&O/Wt Last Vital Signs Temp 98.4 F 08/27/24 04:00 Pulse 87 08/27/24 04:00 Resp 17 08/27/24 04:00 BP 142/86 08/27/24 04:00 Pulse Ox 94 08/27/24 04:00 O2 Del Method Room Air 08/27/24 04:00 O2 Flow Rate 8 08/26/24 13:05 08/26/24 08/26/24 08/27/24 14:59 22:59 06:59 Intake Total 558 / 558 930 / 1488 1300.208 / 2788.208 Output Total 600 / 605 Balance 553 / 553 930 / 1483 700.208 / 2183.208 Weight last 48 hrs Weight 239 lb Weight 239 lb Physical Exam 2 Narrative: GENERAL: Patient is alert and oriented ?3 and in no acute distress. The following is a focused bilateral lower extremity exam. VASCULAR: Dorsalis pedis palpable bilaterally. Posterior tibial arteries palpable. Capillary refill time less than 3 seconds right hallux. Calf is supple and nontender proximally and distally. Mild edema left forefoot. NEUROLOGICAL: Protective sensation diminished to light touch. DERMATOLOGICAL: Incision is well coapted without erythema warmth or drainage left foot. Right hallux nailbed is intact and well-healing without appearance or erythema. MUSCULOSKELETAL: Status post left great toe amputation. Data 08/27/24 04:56 08/27/24 04:56 Micro: Microbiology 08/23/24 09:42 Gram Stain - Final Toe - #1 Tissue Culture - Preliminary Strep agalactiae - (group b)#2 08/22/24 18:57 Gram Stain - Final Toe - #1 Wound Culture - Preliminary Group g streptococcus Strep agalactiae - (group b)#2 A&P Assessment and plan (1) Diabetic peripheral neuropathy associated with type 2 diabetes mellitus: (2) Cellulitis of left foot: (3) Non-pressure chronic ulcer of other part of right foot with necrosis of bone: (4) Gangrene of toe of left foot: (5) Ingrowing right great toenail: (6) Paronychia of great toe, right: Dressing of bacitracin, Adaptic, Kerlix and Coban covering right great toe. Plan 34-year-old newly diagnosed diabetic male presents with gangrenous changes to left great toe and paronychia of right great toe secondary to ingrown nail. Status post left great toe amputation and right hallux nail avulsion date of operation 08/23/2024 May heel touch with cam boot left lower extremity for transfers Surgical dressing changed today left foot, incision is well-healing. Wound culture taken in emergency department Gram stain significant for negative rods and positive cocci in chains and clusters Bone culture taken intraoperatively 08/23/2024 significant for negative cocci, negative rods, positive rods and positive cocci in pairs Status post delayed closure left foot performed 08/26/2024 Planning on PICC line with 6 weeks of IV antibiotics No further surgical intervention anticipated during this hospitalization, discharge planning and arrangements for long-term antibiotics. Follow-up in podiatry clinic next week 09/01/2024 at 8:30 AM. PDMP PDMP Reviewed: Not Reviewed Attestations 2 Medical Necessity Statement*: Continued need for IV antibiotics for osteomyelitis Coding Level of Care Code Acute Code for [facility] Fwd Diagnoses Diabetic peripheral neuropathy associated with type 2 diabetes mellitus E11.42 Cellulitis of left foot L03.116 Non-pressure chronic ulcer of other part of right foot with necrosis of bone L97.514 Gangrene of toe of left foot I96 Ingrowing right great toenail L60.0 Paronychia of great toe, right L03.031
[2024-08-27 06:40] LABS: Glucose Point of Care 165 mg/dL (70-110)
[2024-08-27] MEDS: insulin glargine 100 units/1 mL 20 UNIT SUBCUT (08:35)
[2024-08-27] MEDS: insulin lispro 100 unit/1 mL SUBCUT (08:35)
[2024-08-27] MEDS: DAPTOmycin 500 MG SDV 800 MG IVP (08:35)
[2024-08-27] MEDS: metoprolol tartrate 25 mg Tablet 12.5 MG PO (08:38)
[2024-08-27] MEDS: sennosides 8.6 mg Tablet 17.2 MG PO (08:39)
[2024-08-27 10:45] LABS: Glucose Point of Care 135 mg/dL (70-110)
--- NOTE | 2024-08-27 14:31 | PM.DCS ---
Discharge Providers Date of Admission: 08/22/24 20:09 Date of Discharge: August 27, 2024 Attending Provider at Admission: Perla Singh MD Attending Provider at Discharge: Milagros Pratt MD Diagnoses at Discharge Discharge Diagnosis (1) Diabetic peripheral neuropathy associated with type 2 diabetes mellitus: Status: Acute (2) Cellulitis of left foot: Status: Acute (3) Non-pressure chronic ulcer of other part of right foot with necrosis of bone: Status: Acute (4) Gangrene of toe of left foot: Status: Acute (5) Ingrowing right great toenail: Status: Acute (6) Paronychia of great toe, right: Status: Acute Reason for Visit Reason for Visit: lft leg swelling - discoloration on lft foot Hospital Course Hospital Course Patient is a 34-year-old male with newly diagnosed diabetes mellitus on this current admission who presented with left great toe gangrene. Patient had been having issues with ingrowing toenail infections of his left great toe intermittently over the years. His current episode began several weeks prior to hospital presentation. He traveled [place] to the [facility] and spent time at the beach. His ingrown toenail was exposed to several water sources including the ocean and springs. On the way back to the [facility], he was started to swell up, became discolored and painful. He was noted to have a gangrene of the left great toe with cellulitis of the left forefoot. Extensive necrosis was encountered especially on the plantar aspect. He underwent amputation of the left great toe on 11/23/2024 with podiatry. He was also noted to have an ingrown toenail on the right side with paronychia for which he underwent total toenail avulsion on the right side. He underwent delayed primary closure of the left side on August 26, 2024. Operating room cultures on the showed a Gram stain with few gram-negative rods and gram-positive cocci in pairs chains and clusters, culture showing group B and group G Streptococcus. The gram-negative rods are thus far not identified on culture. Patient received treatment with IV vancomycin and IV piperacillin/tazobactam in the hospital. This has been transitioned to IV daptomycin and oral ciprofloxacin at the time of discharge. He received PICC line. Blood cultures remain negative during admission course Incidentally patient was noted to have an episode of SVT during the hospitalization. He reported history of prior intermittent palpitations but has never formally been evaluated. An event monitor was ordered at the time of discharge. He was started on metoprolol 25 mg p.o. daily. His HbA1c returned at 12.3. Patient was initiated on long-acting and short acting insulin and arrange for follow-up with endocrinology. Patient stated that he had a similar infection on the back 7 to 8 years ago at which point the suspicion was raised for diabetes mellitus however he was never formally evaluated. Given young age at onset, patient may need to be evaluated for type I versus type 2 diabetes mellitus as an outpatient. Physical Exam Narrative: General: No acute distress, AO x3 HEENT: PERRLA, pupils bilaterally equal and reactive, pallors not present Chest: Normal vesicular breath sounds, no added sounds, equal good air entry bilaterally CVS: S1-S2 regular, no murmurs, no tachycardia, no gallops, no rubs Abdomen: Soft, nontender, no organomegaly, bowel sounds present Neuro: No focal deficits, no facial deformity, AO x3, power 5/5 in all limbs Discharge Data Studies Completed and Pending Completed Studies During Hospitalization Category Date Time Status CXRP [XR chest 1V portable [id number]] Routine Exams 08/25/24 09:23 Completed XR foot LT min 3V* [id number] Routine Exams 08/23/24 12:25 Completed XR foot LT min 3V* [id number] Stat Exams 08/22/24 17:03 Completed MR foot LT wo/w con [id number] Routine MRI 08/24/24 07:00 Completed Pathology: Surgical [PTH] Routine Pth 08/23/24 09:59 Completed CV. echo complete* [id number] Routine Ultrasound 08/25/24 12:02 Completed US venous duplex lower extremity LT [CV venous duplex Ultrasound 08/22/24 19:[place] [id number]] Stat Pending at discharge Category Date Time Status Blood Culture Stat Lab 08/22/24 15:58 Results Radiology Impressions Venous Duplex 08/22/24 19:19 IMPRESSION: No evidence of deep vein thrombosis in the left lower extremity. Foot X-Ray 08/23/24 12:25 IMPRESSION: Status post amputation of the phalanges of the great toe with diffuse edema and postsurgical air as described. Foot MRI 08/24/24 07:00 IMPRESSION: Some images limited by motion 1. Recent expected postoperative changes resection of the big toe. No evidence of drainable abscess or fluid collection. 2. Diffuse edema involving the dorsal and plantar soft tissues extending into the intertarsal musculature and soft tissues compatible with cellulitis and soft tissue infection. Associated skin thickening. No drainable fluid collections. 3. No other acute findings considering limitations. Chest X-Ray 08/25/24 09:23 Impression: Satisfactory placement of right PICC line. Laboratory Results WBC 9.25 10^3/uL (3.29-11.43) 08/27/24 04:56 RBC 3.51 10^6/uL (3.85-5.65) L 08/27/24 04:56 Hgb 9.90 g/dL (11.27-16.99) L 08/27/24 04:56 Hct 30.8 % (37-53) L 08/27/24 04:56 MCV 87.7 fl (82-101) 08/27/24 04:56 MCH 28.2 pg (27-33) 08/27/24 04:56 MCHC 32.1 g/dL (30-55) 08/27/24 04:56 RDW 12.1 % (12.1-15.1) 08/27/24 04:56 Plt Count 363 10^3/cmm (157-399) 08/27/24 04:56 MPV 9.0 fL (7.4-10.4) 08/27/24 04:56 Neut % (Auto) 71.7 % 08/27/24 04:56 Lymph % (Auto) 19.6 % 08/27/24 04:56 [place] % (Auto) 5.8 % 08/27/24 04:56 Eos % (Auto) 1.6 % 08/27/24 04:56 Baso % (Auto) 0.5 % 08/27/24 04:56 Neut # (Auto) 6.63 10^3/uL (1.8-7.7) 08/27/24 04:56 Lymph # (Auto) 1.8 10^3/uL (0.8-4.8) 08/27/24 04:56 [place] # (Auto) 0.5 10^3/uL (0.2-0.9) 08/27/24 04:56 Eos # (Auto) 0.2 10^3/uL (0.0-0.8) 08/27/24 04:56 Baso # (Auto) 0.1 10^3/uL (0.0-0.1) 08/27/24 04:56 Nucleated RBC % (auto) 0 % 08/27/24 04:56 Nucleated RBCs # 0.0 /100WBC 08/27/24 04:56 ESR Cancelled 08/23/24 04:25 PT 15.30 SECONDS (12.1-14.9) H 08/23/24 04:25 INR 1.13 (0.8-1.2) 08/23/24 04:25 APTT 33.3 SECONDS (23.9-36.7) 08/23/24 04:25 Sodium 142 mmol/L (136-145) 08/27/24 04:56 Potassium 3.8 mmol/L (3.5-5.1) 08/27/24 04:56 Chloride 106 mmol/L (98-107) 08/27/24 04:56 Carbon Dioxide 26 mmol/L (22-29) 08/27/24 04:56 Anion Gap 13.8 (5-19) 08/27/24 04:56 BUN 12 mg/dL (6-20) 08/27/24 04:56 Creatinine 0.7 mg/dL (0.7-1.2) 08/27/24 04:56 GFR Calculation 127.6 mL/min (90-130) 08/27/24 04:56 Glucose 158 mg/dL (65-115) H 08/27/24 04:56 POC Glucose 135 mg/dL (70-110) H 08/27/24 10:41 Estimat Average Glucose 306 08/22/24 15:55 Hemoglobin A1c 12.3 % (4.0-6.0) H 08/22/24 15:55 Calculated Osmolality 297 mOsm/kg (285-295) H 08/27/24 04:56 Lactic Acid 1.2 mmol/L (0.5-2.2) 08/22/24 15:55 Calcium 7.5 mg/dL (8.5-10.5) L 08/27/24 04:56 Phosphorus 2.7 mg/dL (2.5-4.5) 08/23/24 04:25 Magnesium 2.0 mg/dL (1.7-2.3) 08/23/24 04:25 Total Bilirubin 0.2 mg/dL (0.15-1.2) 08/27/24 04:56 AST 23 U/L (0-40) 08/27/24 04:56 ALT 24 U/L (0-41) 08/27/24 04:56 Alkaline Phosphatase 78 U/L (40-130) 08/27/24 04:56 Creatine Kinase 26 U/L (39-308) L 08/27/24 04:56 C-Reactive Protein 189.3 mg/L (0.0-4.9) H 08/22/24 15:55 Total Protein 5.9 g/dL (6.6-8.7) L 08/27/24 04:56 Albumin 2.5 g/dL (3.5-5.2) L 08/27/24 04:56 Globulin 3.4 g/dL (1.3-4.6) 08/27/24 04:56 Triglycerides 94 mg/dL (0-150) 08/23/24 04:25 Cholesterol 135 mg/dL (0-200) 08/23/24 04:25 LDL Cholesterol, Calc 95 mg/dL (50-129) 08/23/24 04:25 HDL Cholesterol 21 mg/dL (60-100) L 08/23/24 04:25 LDL/HDL Ratio 4.52 RATIO (0.00-3.22) H 08/23/24 04:25 Cholesterol/HDL Ratio 6.43 mg/dL (1.0-5.00) H 08/23/24 04:25 Procalcitonin 0.28 ng/mL (0-0.5) 08/22/24 23:24 TSH 1.14 uIU/mL (0.27-4.20) 08/22/24 23:24 Vancomycin Trough 13.5 ug/mL (10-15) 08/25/24 20:51 Vitals Last Vital Signs Temp 98.2 F 08/27/24 11:30 Pulse 86 08/27/24 11:30 Resp 15 08/27/24 11:30 BP 160/96 08/27/24 11:30 Pulse Ox 96 08/27/24 11:30 O2 Del Method Room Air 08/27/24 11:30 O2 Flow Rate 8 08/26/24 13:05 Discharge Plan Discharge Patient Disposition: Home Condition: Stable Prescriptions: New insulin lispro [Humalog KwikPen Insulin] 100 unit/mL insulin pen 5 unit SUBCUT TID Qty: 15 0RF (DME) pen needle, diabetic [Ultra-Thin II Ins Pen [place]] 29 gauge x 1/2 needle See Rx Instructions .Route Qty: 100 0RF Rx Instructions: As directed (DME) blood-glucose meter [Glucocard 01 Meter] Kit See Rx Instructions .Route Qty: 1 0RF Rx Instructions: As directed mupirocin [Centany] 2 % ointment 1 applic topical TID Qty: 15 0RF Rx Instructions: Apply to right great toe 3 times daily with Band-Aid. insulin glargine [Lantus U-100 Insulin] 100 unit/mL Solution 30 unit SUBCUT BEDTIME 30 Days Qty: 30 0RF daptomycin 500 mg Recon Soln 800 mg IVP Q24H Qty: 0 0RF ciprofloxacin HCl [Cipro] 500 mg tablet 500 mg PO BID 14 Days Qty: 28 0RF metoprolol succinate 25 mg capsule,sprinkle,ER 24hr 25 mg PO DAILY Qty: 30 0RF hydrocodone-acetaminophen 7.5-325 mg tablet 1 tab PO Q8H PRN (Reason: pain) 7 Days Qty: 21 0RF Discharge Orders: Discharge Order (Routine); Ordered 08/27/24 Ordered By: Milagros Pratt Other Ambulatory Orders: Miscellaneous Procedure (Order) Location: None Selected Ordered By: Milagros Pratt Referrals: Infectious Disease Group [facility] [Provider Group, Infectious Disease] - 09/14/24 11:30 am [facility] [Outside] Referral Note: This is the company supplying your IV abxs. It may not come out of this office but if you call this number they can redirect you to the appropriate office. Central Office number is [phone] [facility] [Outside] - 09/01/24 3:30 am Referral Note: If unable to keep appointment please call to reschedule. This is where you will go for your PICC line dressing changes and lab draws weekly. Citlalli Matthew FNP [Nurse Practitioner, Nurse Practitioner] - 08/30/24 1:00 pm Saturnino Person DPM [Physician, Podiatry] - 09/01/24 8:30 am Shawn Nuñez MD [Physician, Endocrinology] - 09/09/24 8:00 am Referral Note: newly diganosed DM Hba1c 12.3 Discharge Diet: Usual diet Discharge Activity: Resume usual activity Patient Instructions: Type 2 Diabetes, Ciprofloxacin (By mouth), Metoprolol (By mouth), Daptomycin (By injection), Insulin Glargine (By injection), Insulin Lispro (By injection), Supraventricular Tachycardia (GEN), Acute Wound Care (DC), What to Do if Your Blood Sugar is Low (GEN), How to Check your Blood Sugar (GEN), Opioid Safety, Post Anesthesia Care Activity Restrictions/Additional Instructions: Instructions from Dr. Person - Please keep your left foot dressing clean, dry and intact until follow-up visit in podiatry clinic. - Follow-up with Dr. Person at [facility] second floor podiatry clinic scheduled 09/01/2024 at 8:30 AM. - Please elevate left foot while resting, may heel touch for short transfers with Cam boot to the left lower extremity. - Dressing changed 2-3 times daily right great toe with mupirocin ointment and Band-Aid. - Contact podiatry clinic with any questions or concerns [phone] Discharge Attestations Time Spent in Discharge Care*: greater than 30 min Quality Metrics Clinical Quality Measures [ No reported AMI, CVA or VTE this stay] Coding Level of Care Code Acute Code for [facility]wd Diagnoses Diabetic peripheral neuropathy associated with type 2 diabetes mellitus E11.42 Cellulitis of left foot L03.116 Non-pressure chronic ulcer of other part of right foot with necrosis of bone L97.514 Gangrene of toe of left foot I96 Ingrowing right great toenail L60.0 Paronychia of great toe, right L03.031
--- NOTE | 2024-08-27 14:45 | PC.NURSE ---
Discharge Note Patient discharged to home via private vehicle accompanied by dad. Discharge instructions reviewed with patient and/or financial sales representative. Mobile pharmacy medications and/or prescriptions provided. Belongings/home medications returned. Educated patient thouroughly of new diabetes diagnosis and how to care for himself with disease at home. Also applied heart monitor to patient and educated him on how to operate it and what to do after the 14 days it needed to stay on. Patient, dad and brother was in the room with all education.
== END 2024-08-27 13:00 | disposition home or self-care (01) | DRG 854 ==
LOC: ER 20:11 → MEDSURG 20:51
PROVIDERS: Podiatrist Foot & Ankle Surgery; Admitting Provider Internal Medicine; Emergency Provider Student in an Organized Health Care Education/Training Program; Visit Provider Student in an Organized Health Care Education/Training Program
PROC: 0Y6Q0Z0 Detachment at Left 1st Toe, Complete, Open Approach (ICD-10-PCS; principal; 2024-08-23 08:55)
PROC: 0HQNXZZ Repair Left Foot Skin, External Approach (ICD-10-PCS; CPT 13160; principal; 2024-08-26 12:00)
DX: A41.9 Sepsis, unspecified organism (principal); E11.52 Type 2 diabetes mellitus with diabetic peripheral angiopathy with gangrene; I96 Gangrene, not elsewhere classified; L03.116 Cellulitis of left lower limb; I47.10 Supraventricular tachycardia, unspecified; M86.172 Other acute osteomyelitis, left ankle and foot; E11.621 Type 2 diabetes mellitus with foot ulcer; L97.524 Non-pressure chronic ulcer of other part of left foot with necrosis of bone; E11.40 Type 2 diabetes mellitus with diabetic neuropathy, unspecified; L60.0 Ingrowing nail; L03.031 Cellulitis of right toe; B95.1 Streptococcus, group B, as the cause of diseases classified elsewhere; B95.4 Other streptococcus as the cause of diseases classified elsewhere
CPT/HCPCS: 36415; 36416; 36573; 36592; 71045; 73630; 73720; 80048; 80053; 80061; 80202; 82550; 82962; 83036; 83605; 83735; 84100; 84145; 84443; 85025; 85610; 85651; 85730; 86140; 87040; 87070; 87075; 87077; 87176; 87186; 87205; 88305; 88311; 93005; 93306; 93971; 96365; 96367; 96372; 97760; 99285; A9577; J0878; J1815; J1885; J2185; J2250; J2270; J2470; J2543; J2704; J2919; J3010; J3370; J3372; J3490; J7030; J7050; J7120; J9999; L4361

== ENCOUNTER → 2024-09-09 09:22 | Outpatient (BNVA) | payer BC, SELFPAY | PROVIDERS: Visit Provider Internal Medicine | DX: E11.42 Type 2 diabetes mellitus with diabetic polyneuropathy (principal); L03.116 Cellulitis of left lower limb; E11.52 Type 2 diabetes mellitus with diabetic peripheral angiopathy with gangrene | CPT/HCPCS: 36415; 80053; 84681; 86337; 86341 ==

== ENCOUNTER 2024-09-14 10:56 | Oncology outpatient (recurring) (ONCR) | payer BC, SELFPAY ==
[2024-09-01 10:15] VITALS: BP 95/65; PULSE 90; RESP 18; TEMP 36.3; O2SAT 97
--- NOTE | 2024-09-01 10:30 | XR_ITS ---
WS: [id number] PORTABLE CHEST x 2 HISTORY: Reposition PICC tip to cavoatrial junction COMPARISON: 08/25/2024 Initial radiograph reveals the RIGHT PICC line remains overlying the RIGHT atrium. PICC line is retracted 2 to 3 cm and is now positioned at the cavoatrial junction. Lungs are clear and well expanded. No pleural effusion or pneumothorax. Cardiac size: Normal. Mediastinum/Aorta: Normal mediastinum. No osseous abnormality seen. XR/XR chest 1V portable [id number] IMPRESSION: Repositioning of the RIGHT PICC line now at the cavoatrial junction.
[2024-09-01 10:53] LABS: Basophils # 0.1 10^3/uL (0.0-0.1); Eosinophils # 0.2 10^3/uL (0.0-0.8); Eosinophils % 2.4 %; Hematocrit 36.9 % (37-53); Lymphocytes # 2.2 10^3/uL (0.8-4.8); Lymphocytes % 23.7 %; Mean Corpuscular Volume 87.6 fl (82-101); Mean Platelet Volume 8.7 fL (7.4-10.4); Monocytes # 0.6 10^3/uL (0.2-0.9); Neutrophils # 6.01 10^3/uL (1.8-7.7); Neutrophils % 65.7 %; Nucleated Red Blood Cells % 0 %; Platelet Count 402 10^3/cmm (157-399); Red Blood Count 4.21 10^6/uL (3.85-5.65); Red Cell Distribution Width 12.2 % (12.1-15.1); White Blood Count 9.15 10^3/uL (3.29-11.43)
--- NOTE | 2024-09-01 10:59 | PICC.NOTE ---
Notified by Dr. Pratt that following echocardiogram at a previous date, PICC tip appears to be in the right atrium. Per Dr. Pratt, PICC tip to be repositioned to cavoatrial junction. CXR obtained with recommendation from radiologist to retract 2 cm. PICC retracted 2 cm with repeat CXR obtained. PICC tip now at cavoatrial junction, in correct position for use per radiologist. PICC dressing changed using sterile technique. Labs drawn as ordered. Pt tolerated well. Pt notified of follow up next Friday at 3:30 pm for PICC dressing change and [facility]. Pt verbalized understanding.
[2024-09-01 11:15] LABS: Alanine Aminotransferase 24 U/L (0-41); Albumin Level 3.3 g/dL (3.5-5.2); Alkaline Phosphatase 90 U/L (40-130); Aspartate Amino Transferase 19 U/L (0-40); C Reactive Protein 12.7 mg/L (0.0-4.9); Creatine Phosphokinase 18 U/L (39-308); Globulin 4.3 g/dL (1.3-4.6); Glomerular Filtration Rate 127.6 mL/min (90-130); Total Bilirubin 0.3 mg/dL (0.15-1.2); Total Protein 7.6 g/dL (6.6-8.7)
[2024-09-08 12:33] LABS: Basophils # 0.1 10^3/uL (0.0-0.1); Basophils % 1.2 %; Eosinophils # 0.2 10^3/uL (0.0-0.8); Hematocrit 37.8 % (37-53); Lymphocytes # 1.9 10^3/uL (0.8-4.8); Lymphocytes % 24.5 %; Mean Corpuscular HGB Conc 32.3 g/dL (30-55); Mean Corpuscular Hemoglobin 27.4 pg (27-33); Mean Corpuscular Volume 84.9 fl (82-101); Mean Platelet Volume 9.5 fL (7.4-10.4); Monocytes # 0.4 10^3/uL (0.2-0.9); Monocytes % 5.2 %; Neutrophils # 5.04 10^3/uL (1.8-7.7); Neutrophils % 65.8 %; Nucleated Red Blood Cells % 0 %; Platelet Count 313 10^3/cmm (157-399); Red Blood Count 4.45 10^6/uL (3.85-5.65); Red Cell Distribution Width 12.3 % (12.1-15.1); White Blood Count 7.66 10^3/uL (3.29-11.43)
[2024-09-08 12:48] LABS: Alanine Aminotransferase 15 U/L (0-41); Albumin Level 3.7 g/dL (3.5-5.2); Alkaline Phosphatase 100 U/L (40-130); Aspartate Amino Transferase 13 U/L (0-40); Bilirubin Direct 0.17 mg/dL (0.00-0.30); C Reactive Protein 26.3 mg/L (0.0-4.9); Creatine Phosphokinase 30 U/L (39-308); Globulin 4.5 g/dL (1.3-4.6); Glomerular Filtration Rate 188.1 mL/min (90-130); Total Bilirubin 0.5 mg/dL (0.15-1.2); Total Protein 8.2 g/dL (6.6-8.7)
== END 2024-09-27 23:59 | disposition home or self-care (01) ==
PROVIDERS: PCP Nurse Practitioner; Visit Provider Student in an Organized Health Care Education/Training Program
DX: L03.116 Cellulitis of left lower limb (principal); E11.9 Type 2 diabetes mellitus without complications
CPT/HCPCS: 36592; 71045; 73630; 80076; 82550; 82565; 85025; 86140; 87015; 87070; 87075; 87116; 87205; 87206; 87801

== ENCOUNTER 2024-09-14 13:20 | Inpatient (IN) | payer BC, SELFPAY ==
--- OUTSIDE RECORDS SUMMARY | 2024-09-14 13:25 | XMS_ITS | Clinical Summary ---
Author Organization [facility] Address [address] [place] [address] Care Team Providers Care Hall Porter Name Role Phone Unavailable Primary Care Provider Unavailabl e Allergies No known active allergies Medications No known medications Active Problems No known active problems Social History Tobacco Use Types Packs/Day Years Used Date Smoking Tobacco: Never Smokeless Tobacco: Never Tobacco Cessation:Counseling Given: Not Answered Sex and Gender Information Value Date Recorded Sex Assigned at Not on file Legal Sex Male 1:57 PM CDT Gender Identity Not on file Sexual Orientation Not on file Last Filed Vital Signs Vital Sign Reading Time Taken Comments Blood Pressure 134/96 11/17/2021 2:04 PM CDT Pulse 102 11/17/2021 2:04 PM CDT Temperature 37.5 C (99.5 F) 11/17/2021 2:04 PM CDT Respiratory Rate 16 11/17/2021 2:04 PM CDT Oxygen Saturation 100% 11/17/2021 2:04 PM CDT Inhaled Oxygen Concentration - - Weight 107 kg (236 lb) 11/17/2021 2:04 PM CDT Height 182.9 cm (6') 11/17/2021 2:04 PM CDT Body Mass Index 32.01 11/17/2021 2:04 PM CDT Plan of Treatment Health Maintenance Due Date Last Done Comments HEPATITIS B VACCINES (1 of 3 - 19+ 3-dose series) 01/20/2007 04/07/2010, 10/15/2008, 05/07/2008 DTAP/TDAP/TD VACCINES (2 - Td or Tdap) 02/04/2017 02/04/2007 INFLUENZA VACCINE (#1) 2023 2, 02/02/2011 HPV VACCINES Aged Out No longer eligi ble based on patient's age to complete this topic
[2024-09-14 14:02] VITALS: BMI 29.4
[2024-09-14 14:08] VITALS: BP 119/78; PULSE 86; RESP 16; TEMP 37.1; O2SAT 98
--- NOTE | 2024-09-14 14:21 | MRR_ITS ---
PROCEDURE INFORMATION: Exam: MR Left Lower Extremity Other Than Joint Without and With Contrast; Foot Exam date and time: 09/14/2024 5:13 PM Age: 34 years old Clinical indication: Cellulitis and swelling, leg or foot; Prior surgery; Surgery date: <1 month; Surgery type: Left big toe amputation; Additional info: Osteomyelitis TECHNIQUE: Imaging protocol: Magnetic resonance imaging of the left lower extremity without and with contrast. Exam focused on the foot. Contrast material: MULTIHANCE; Contrast volume: 20 ml; Contrast route: INTRAVENOUS (IV); COMPARISON: MR foot LT wo/w con [id number] 08/24/2024 11:15 AM FINDINGS: Status post resection of the great toe at the MTP joint. T2 hyperintense, T1 mildly hypointense 1st metatarsal and mid to distal 2nd metatarsal and second proximal phalanx. There is a large abscess extending from the postsurgical site of the amputation measuring 5.1 x 2.6 x 2.6 cm extending to the medial aspect of the 2nd metatarsus spanning 3 cm and dorsally of the 3rd metatarsus measuring 3.0 x 1.8 x 2.3 cm. Diffuse soft tissue edema about the foot. Diffuse muscular edema suggestive of myositis. No distinct evidence of tear of the tendons or ligaments. MR/MR foot LT wo/w con [id number] IMPRESSION: Findings of osteomyelitis of the 1st metatarsal and mid to distal 2nd metatarsal and 2nd proximal phalanx with large abscess extending from post surgical site to the 2nd/3rd metatarsals dorsally. Diffuse muscular edema suggestive of myositis.
--- NOTE | 2024-09-14 14:45 | PM.HP ---
Providers/Chief Complaint Admitting Physician: Jax Matos MD Primary Care Provider: REYES Dial Chief Complaint: left foot infection failed IV antibiotics History of Present Illness Luther Abdullahi is a 34 year old male with a past medical history of diabetes mellitus, history of SVT, history of left foot cellulitis, with left great toe gangrene requiring amputation, currently on IV antibiotics via PICC line, following up with podiatry, patient noticed increased swelling/erythema/drainage from left foot surgical site, had seen infectious disease and podiatry this morning, who recommended patient come to the hospital for IV antibiotics and consideration of further debridement and further workup. Currently he is alert oriented x 3, following all commands, reports that he has been compliant with IV antibiotics, his blood sugars have been in the 120s to 180s range, no chest pain, no shortness of breath Review of Systems Card: Denies: chest pain Resp: Denies: dyspnea Medications/Allergies Home Medications ?Medication ?Instructions ?Recorded ?Confirmed ?Last Taken ?Type insulin lispro 100 unit/mL 5 unit (0.05 mL) SUBCUT TID #15 mL 08/25/24 09/14/24 Unknown Rx subcutaneous pen (Humalog KwikPen (U-100) Insulin) pen needle, diabetic 29 gauge x #100 ea 08/25/24 09/14/24 Unknown Rx 1/2 (Ultra-Thin II Insulin Pen [place]) blood-glucose meter (Glucocard 01 #1 ea 08/26/24 09/14/24 Unknown Rx Meter kit) daptomycin 500 mg intravenous 800 mg IVP Q24H #0 ea 08/27/24 09/14/24 Unknown Rx solution insulin glargine 100 unit/mL 30 unit (0.3 mL) SUBCUT BEDTIME 30 08/27/24 09/14/24 Unknown Rx subcutaneous solution (Lantus days #30 mL U-100 Insulin) metoprolol succinate 25 mg capsule 25 mg PO DAILY #30 ea 08/27/24 09/14/24 Unknown Rx sprinkle, ext. release 24 hr mupirocin 2 % topical ointment 1 applic topical TID #15 grams 08/27/24 09/14/24 Unknown Rx (Centany) Wheelchair with elevated leg rest #1 ea 09/01/24 09/14/24 Unknown Rx to left blood-glucose sensor (Dexcom G7 #9 ea 09/09/24 09/14/24 Unknown Rx Sensor device) blood-glucose,management expert,cont #1 ea 09/09/24 09/14/24 Unknown Rx (Dexcom G7 Garment Liner) Allergies Allergy/AdvReac Type Severity Reaction Status Date / Time No Known Allergies Allergy Verified 09/14/24 12:45 PFSH Acute PFSH: Medical History (Updated 09/14/24 @ 14:58 by Jax Matos MD) Diabetes mellitus Surgical History History of nasal surgery at age 3 due to being hit by a baseball. History of incision and drainage of his posterior neck due to a spider bite in 2019 Family History Father Diabetes mellitus, type 2 Hypertension Atrial fibrillation Family/Other Stroke uncle- maternal Denies family history of Diabetes Heart disease Chronic kidney disease (CKD) Cancer Thyroid disease Social History Smoking and tobacco/nicotine status: never used tobacco/nicotine Alcohol intake: never Substance/Drug Use: former Date of last use: 2021 Former substance use details: last tried an edible in 2021 Vitals/I&O/Wt Last Vital Signs Temp 98.7 F 09/14/24 14:08 Pulse 86 09/14/24 14:08 Resp 16 09/14/24 14:08 BP 119/78 09/14/24 14:08 Pulse Ox 98 09/14/24 14:08 O2 Del Method Room Air 09/14/24 14:08 Physical Exam Const: COMMON NORMALS: no acute distress and patient oriented x3 HENMT: COMMON NORMALS: normocephalic HEAD & SCALP: normocephalic Eye: COMMON NORMALS: Equal, round and reactive pupils present Neck/C-Spine: COMMON NORMALS: no JVD Resp: COMMON NORMALS: normal respiratory effort, No retractions, No use of accessory muscles and clear to auscultation bilaterally AUSCULTATION: clear to auscultation bilaterally Cardio: COMMON NORMALS: regular rate, regular rhythm, S1 normal heart sound present and S2 normal heart sound present RATE: regular rate RHYTHM: regular rhythm HEART SOUNDS: S1 normal heart sound present and S2 normal heart sound present GI: COMMON NORMALS: Normal to inspection, nondistended, normoactive bowel sounds present, Soft to palpation and non-tender Extremity: COMMON NORMALS: no calf tenderness and no pedal edema NARRATIVE EXTREMITY EXAM: Left foot, lateral aspect, surgical site with erythema, swelling, tenderness, surgical sutures in place, just inferior to surgical sutures, area of purulent drainage, foul-smelling Area of erythema extends along dorsal and plantar aspect of left lateral foot Right foot, great toe, status post toenail trimming OTHER: DP PT pulses palpable Neuro: COMMON NORMALS: patient oriented x3, CN's II-XII intact bilaterally and moves all extremities Psych: COMMON NORMALS: mental status grossly normal A&P Assessment and plan (1) Cellulitis of left foot: (2) Abscess: (3) Osteomyelitis: (4) Sepsis: Plan Left foot cellulitis - With concerns for underlying abscess - Concern for deep tissue infection - Concern for osteomyelitis Plan - Will admit to medical floors - Blood cultures - Tissue cultures have been obtained in clinic according to patient - Obtain inflammatory markers - Dr. Person would like MRI ordered, MRI left foot with and without contrast - Continue daptomycin 800 mg IV every 24 hours - Add meropenem 1 g IV every 8 hours for Pseudomonas coverage - Diabetic diet - N.p.o. midnight - Plans of surgical intervention tomorrow morning -Arterial ultrasound - Full code - Lovenox for DVT prophylaxis Type 2 diabetes mellitus - Lantus 20 units at bedtime - Monitor with sliding scale PDMP PDMP Reviewed: Not Reviewed Attestations Medical Necessity Statement*: Patient requires hospitalization, inpatient, greater than 2 midnights, antibiotics for left foot cellulitis, abscess Diagnoses Cellulitis of left foot L03.116 Abscess L02.91 Osteomyelitis M86.9 Sepsis A41.9
--- NOTE | 2024-09-14 14:56 | USR_ITS ---
PROCEDURE INFORMATION: Exam: US Duplex Bilateral Lower Extremity Arteries Exam date and time: 09/14/2024 4:29 PM Age: 34 years old Clinical indication: Pain; Leg, lower; Bilateral; Left great toe amputation; Additional info: Left foot diabetic ulcer TECHNIQUE: Imaging protocol: Real-time ultrasound scan of the arteries of the bilateral lower extremities with 2-D lieberman scale, color Doppler flow and spectral waveform analysis. Images documented and saved. COMPARISON: [place] [id number] 08/22/2024 8:24 PM FINDINGS: Right iliac/common femoral artery: No occlusion or significant stenosis. Multiphasic waveform. Right superficial femoral artery: No occlusion or significant stenosis. Multiphasic waveform. Right popliteal artery: No occlusion or significant stenosis. Multiphasic waveform. Right calf/foot arteries: No occlusion or significant stenosis in the visualized arteries. Multiphasic waveforms in the posterior tibial and dorsalis pedis arteries. Dorsalis pedis artery is patent. Left iliac/common femoral artery: No occlusion or significant stenosis. Multiphasic waveform. Left superficial femoral artery: No occlusion or significant stenosis. Multiphasic waveform. Left popliteal artery: No occlusion or significant stenosis. Multiphasic waveform. Left calf/foot arteries: No occlusion or significant stenosis in the visualized arteries. Monophasic waveform within the posterior tibial and dorsalis pedis arteries. Dorsalis pedis artery is patent. Right CARMEN is 1.18 and left CARMEN is 1.1. US/CV arterial duplex [facility] [id number] IMPRESSION: 1. CARMEN 1.18 on the right and 1.1 on the left. 2. Multiphasic waveforms throughout the right leg. 3. Multiphasic waveforms at and above the knee of the left leg, with monophasic waveforms within the posterior tibial and dorsalis pedis arteries [id number] suggesting small-vessel disease. 4. No significant stenosis or occlusion is seen.
[2024-09-14 15:49] VITALS: BP 133/89; PULSE 87; RESP 16; TEMP 36.3; O2SAT 99
[2024-09-14 17:03] LABS: Basophils # 0.1 10^3/uL (0.0-0.1); Basophils % 0.8 %; Eosinophils # 0.2 10^3/uL (0.0-0.8); Eosinophils % 3.8 %; Hematocrit 35.7 % (37-53); Lymphocytes # 1.7 10^3/uL (0.8-4.8); Lymphocytes % 27.9 %; Mean Corpuscular HGB Conc 32.5 g/dL (30-55); Mean Corpuscular Hemoglobin 27.9 pg (27-33); Mean Corpuscular Volume 85.8 fl (82-101); Mean Platelet Volume 9.5 fL (7.4-10.4); Monocytes # 0.4 10^3/uL (0.2-0.9); Monocytes % 7.1 %; Neutrophils # 3.61 10^3/uL (1.8-7.7); Neutrophils % 60.1 %; Nucleated Red Blood Cells % 0 %; Platelet Count 256 10^3/cmm (157-399); Red Blood Count 4.16 10^6/uL (3.85-5.65); Red Cell Distribution Width 12.3 % (12.1-15.1); White Blood Count 6.02 10^3/uL (3.29-11.43)
[2024-09-14 17:38] LABS: Procalcitonin 0.07 ng/mL (0-0.5); Thyroid Stimulating Hormone 0.88 uIU/mL (0.27-4.20)
[2024-09-14 17:39] LABS: Erythrocyte Sedimentation Rate 38 mm/hr (0-10)
[2024-09-14] MEDS: DAPTOmycin 800 MG in sodium chloride 0.9% (100 ml) 100 ML 100 MG IV (17:58)
[2024-09-14] MEDS: enoxaparin 40 mg/0.4 mL Syringe SUBCUT (17:59)
[2024-09-14] MEDS: pantoprazole 40 mg SDV IVP (17:59)
[2024-09-14] MEDS: meropenem 1,000 mg SDV 1000 MG IVP (17:59)
[2024-09-14 18:25] LABS: Glucose Point of Care 130 mg/dL (70-110)
[2024-09-14 18:36] LABS: Alanine Aminotransferase 13 U/L (0-41); Albumin Level 3.5 g/dL (3.5-5.2); Alkaline Phosphatase 83 U/L (40-130); Anion Gap 17.7 (5-19); Aspartate Amino Transferase 13 U/L (0-40); Blood Urea Nitrogen 15 mg/dL (6-20); C Reactive Protein 69.2 mg/L (0.0-4.9); Calcium 9.3 mg/dL (8.5-10.5); Carbon Dioxide 21 mmol/L (22-29); Chloride 101 mmol/L (98-107); Creatine Phosphokinase 27 U/L (39-308); Creatinine Clr Calc Pharmacy 248.3127; Globulin 4.2 g/dL (1.3-4.6); Glomerular Filtration Rate 188.1 mL/min (90-130); Glucose 126 mg/dL (65-115); Osmolality Calculated 284 mOsm/kg (285-295); Potassium 3.7 mmol/L (3.5-5.1); Sodium 136 mmol/L (136-145); Total Bilirubin 0.4 mg/dL (0.15-1.2); Total Protein 7.7 g/dL (6.6-8.7)
[2024-09-14 18:37] LABS: Lactic Sepsis W/Reflex 0.7 mmol/L (0.5-2.2)
[2024-09-14 20:14] VITALS: BP 124/82; PULSE 87; RESP 18; TEMP 36.8; O2SAT 98
[2024-09-14 20:41] LABS: Glucose Point of Care 174 mg/dL (70-110)
[2024-09-14] MEDS: insulin glargine 100 units/1 mL 20 UNIT SUBCUT (21:45)
[2024-09-14 23:40] VITALS: BP 125/85; PULSE 85; RESP 18; TEMP 36.8; O2SAT 98
[2024-09-15] VITALS (19 sets, daily range): BP systolic 103–143; BP diastolic 67–91; PULSE 75–112; RESP 14–18; TEMP 36.1–36.9; O2SAT 94–100
[2024-09-15] MEDS: meropenem 1,000 mg SDV 1000 MG IVP ×4 (00:02→23:39)
[2024-09-15 05:48] LABS: Basophils # 0.1 10^3/uL (0.0-0.1); Basophils % 1.1 %; Eosinophils # 0.3 10^3/uL (0.0-0.8); Hematocrit 35.1 % (37-53); Lymphocytes # 1.9 10^3/uL (0.8-4.8); Lymphocytes % 34.5 %; Mean Corpuscular HGB Conc 31.6 g/dL (30-55); Mean Corpuscular Hemoglobin 27.1 pg (27-33); Mean Corpuscular Volume 85.6 fl (82-101); Mean Platelet Volume 9.4 fL (7.4-10.4); Monocytes # 0.5 10^3/uL (0.2-0.9); Monocytes % 8.7 %; Neutrophils # 2.72 10^3/uL (1.8-7.7); Neutrophils % 49.3 %; Nucleated Red Blood Cells % 0 %; Platelet Count 264 10^3/cmm (157-399); Red Cell Distribution Width 12.1 % (12.1-15.1); White Blood Count 5.51 10^3/uL (3.29-11.43)
[2024-09-15 06:03] LABS: Blood Urea Nitrogen 12 mg/dL (6-20); Carbon Dioxide 25 mmol/L (22-29); Chloride 103 mmol/L (98-107); Creatinine Clr Calc Pharmacy 206.8733; Glomerular Filtration Rate 152.4 mL/min (90-130); Glucose 131 mg/dL (65-115); Osmolality Calculated 286 mOsm/kg (285-295); Sodium 137 mmol/L (136-145)
[2024-09-15 06:20] LABS: Glucose Point of Care 146 mg/dL (70-110)
[2024-09-15] MEDS: metoprolol succinate ER (24 HR) 25 mg Tablet PO (08:10)
--- NOTE | 2024-09-15 08:17 | PC.NURSE ---
Dr. Matos gave verbal orders to hold insulin due to surgical procedure at noon
--- NOTE | 2024-09-15 10:46 | PC.CHAP ---
Pastoral Care Encounter/Spiritual Assessment Type of Contact [] Declined technician telecommunication systems visit [] Patient/Family/Request visit [] Outpatient visit [] Follow-up visit [] Physician referral [] Code/Alert [x] Routine visit [] Staff referral [] Actively dying [] Patient sleeping [] Family support [] [] Out of room [] Palliative care [] [] Receiving care in room [] Pre-surgical visit [] Trauma [] Long length of stay [] ICU visit [] Other: Relational/Emotional Strength [x] Patient feels connected with others/family/visitors/staff [x] Distress [] Loneliness/isolation [] Abandonment Spirituality of Patient [x] Person of Yanira [] Attends Caodaism of their Yanira [x] Believes in Prayer [] Reads Bible or Nondenominational materials [] There are Spiritual issues to be addressed Outpatient Interviewing Clerk Interventions [x] Prayer [x] Active listening [x] Non-anxious presence [x] Spiritual/emotional support [] Crisis/trauma care [] Spiritual counseling [] Bereavement support [] Provided bereavement packet [] Provided Bible/devotional materials [] Provided toy/stuffed animal, coloring book to patient or family member [] Provided Communion [] Anointing/[place] [] Salvation [x] Completed spiritual assessment [] Other: Impact on Illness or Injury [] Angry [] Fearful [] Anxious [] Often cries [] Exhaustion [] Unable to work [] Unable to attend yazdanism [] Unable to walk/stand [] Unable to read [] Unable to drive [] Unable to eat/drink [] Unable to sleep [] Unable to be with family [] Patient intubated [] Other: Summary Time spent with patient 5 min
--- NOTE | 2024-09-15 11:26 | ANES.PREANE2 ---
Pre-Anesthetic Assessment Height/Weight: Height 6 ft Weight 217 lb Temp Pulse Resp BP Pulse Ox O2 Del Method 97.5 F L 81 17 132/87 98 Room Air 09/15/24 07:57 09/15/24 07:57 09/15/24 07:57 09/15/24 07:57 09/15/24 07:57 09/15/24 07:57 Preop Diagnosis: Abscess left foot Operation Date: 09/15/24 12:00 Proposed Procedures p Incision And Drainage-Abscess Left Foot(Left) - Saturnino Person DPM Was Beta Senia taken within 24 hours: N/A Was Clonidine taken within 24 hours: N/A Social No alcohol and No tobacco Exam alert, oriented x 3, clear to auscultation bilaterally and regular rate & rhythm Airway Submandibular: within normal limits Cervical ROM: within normal limits Mallampati: Class III Dentition: full Anesthetic Plan ASA status: 2 Anesthesia: MAC Other: No prior issues with anesthesia NPO since yesterday evening History of hypertension on metoprolol IDDM, preop BS 97 Plan for MAC anesthesia with local via surgeon Medications/Allergies Home Medications ?Medication ?Instructions ?Recorded ?Confirmed ?Last Taken ?Type insulin lispro 100 unit/mL 5 unit (0.05 mL) SUBCUT TID #15 mL 08/25/24 09/15/24 09/14/24 Rx subcutaneous pen (Humalog KwikPen (U-100) Insulin) pen needle, diabetic 29 gauge x #100 ea 08/25/24 09/15/24 Unknown Rx 1/2 (Ultra-Thin II Insulin Pen [place]) blood-glucose meter (Glucocard 01 #1 ea 08/26/24 09/15/24 Unknown Rx Meter kit) daptomycin 500 mg intravenous 800 mg IVP Q24H #0 ea 08/27/24 09/15/24 Unknown Rx solution insulin glargine 100 unit/mL 30 unit (0.3 mL) SUBCUT BEDTIME 30 08/27/24 09/15/24 09/13/24 Rx subcutaneous solution (Lantus days #30 mL U-100 Insulin) metoprolol succinate 25 mg capsule 25 mg PO DAILY #30 ea 08/27/24 09/15/24 09/14/24 Rx sprinkle, ext. release 24 hr mupirocin 2 % topical ointment 1 applic topical TID #15 grams 08/27/24 09/15/24 09/14/24 Rx (Centany) Wheelchair with elevated leg rest #1 ea 09/01/24 09/15/24 Unknown Rx to left blood-glucose sensor (Dexcom G7 #9 ea 09/09/24 09/15/24 Unknown Rx Sensor device) blood-glucose,strike plate attacher,cont #1 ea 09/09/24 09/15/24 Unknown Rx (Dexcom G7 Physicist Acoustics) hydrocodone 7.5 mg-acetaminophen 1 tab PO Q8H PRN Pain 09/15/24 09/15/24 Unknown History 325 mg tablet Allergies Allergy/AdvReac Type Severity Reaction Status Date / Time No Known Allergies Allergy Verified 09/14/24 12:45 Current Medications Generic Name Dose Route Start Last Admin Trade Name Freq PRN Reason Stop Dose Admin Enoxaparin Sodium 40 mg 09/14/24 14:45 09/14/24 17:59 Enoxaparin 40 Mg/0.4 Ml Syringe SUBCUT 40 mg On Hold: 09/15/24 11:19 Q24H KIMBERLY Administration Comment: Order held by Process Transfer Daptomycin 800 mg/ Sodium 100 mls @ 100 mls/hr 09/14/24 16:00 09/14/24 19:21 Chloride IV Infused On Hold: 09/15/24 11:19 Q24H KIMBERLY Infusion Comment: Order held by Process Transfer Insulin Glargine 20 unit 09/14/24 21:00 09/14/24 21:45 Insulin Glargine 100 Units/1 Ml SUBCUT 20 unit On Hold: 09/15/24 11:19 BEDTIME KIMBERLY Administration Comment: Order held by Process Transfer Insulin Human Lispro 0 unit 09/14/24 18:00 09/15/24 08:10 Insulin Lispro 100 Unit/1 Ml SUBCUT Not Given On Hold: 09/15/24 11:19 TIDWM KIMBERLY Comment: Order held by Process Protocol Transfer Meropenem 1,000 mg 09/14/24 15:00 09/15/24 06:21 Meropenem 1,000 Mg Sdv IVP 1,000 mg On Hold: 09/15/24 11:19 Q8H KIMBERLY Administration Comment: Order held by Process Protocol Transfer Metoprolol Succinate 25 mg 09/15/24 09:00 09/15/24 08:10 Metoprolol Succinate Er (24 Hr) 25 Mg Tablet PO 25 mg On Hold: 09/15/24 11:19 DAILY KIMBERLY Administration Comment: Order held by Process Transfer Pantoprazole Sodium 40 mg 09/14/24 15:00 09/14/24 17:59 Pantoprazole 40 Mg Sdv IVP 40 mg On Hold: 09/15/24 11:19 Q24H KIMBERLY Administration Comment: Order held by Process Transfer [facility] Anesthesia Medical History Diabetes mellitus Surgical History History of nasal surgery at age 3 due to being hit by a baseball. History of incision and drainage of his posterior neck due to a spider bite in 2019 Family History Father Diabetes mellitus, type 2 Hypertension Atrial fibrillation Family/Other Stroke uncle- maternal Denies family history of Diabetes Heart disease Chronic kidney disease (CKD) Cancer Thyroid disease Social History Smoking and tobacco/nicotine status: never used tobacco/nicotine Alcohol intake: never Substance/Drug Use: former Date of last use: 2021 Former substance use details: last tried an edible in 2021 Data Anesthesia 09/15/24 05:28 09/15/24 05:28 Short CBC 09/14/24 09/15/24 Range/Units 16:36 05:28 WBC 6.02 5.51 (3.29-11.43) 10^3/uL Hgb 11.60 11.10 L (11.27-16.99) g/dL Hct 35.7 L 35.1 L (37-53) % MCV 85.8 85.6 (82-101) fl Plt Count 256 264 (157-399) 10^3/cmm Neut % (Auto) 60.1 49.3 % Neut # (Auto) 3.61 2.72 (1.8-7.7) 10^3/uL BMP 09/14/24 09/15/24 16:36 05:28 Sodium 136 137 Potassium 3.7 4.0 Chloride 101 103 Carbon Dioxide 21 L 25 BUN 15 12 Creatinine 0.5 L 0.6 L Glucose 126 H 131 H Calcium 9.3 9.0 Cardiac Enzymes 09/14/24 Range/Units 16:36 Creatine Kinase 27 L (39-308) U/L Liver Function 09/14/24 Range/Units 16:36 Total Bilirubin 0.4 (0.15-1.2) mg/dL AST 13 (0-40) U/L ALT 13 (0-41) U/L Alkaline Phosphatase 83 (40-130) U/L Albumin 3.5 (3.5-5.2) g/dL Coags 09/14/24 16:36 ESR 38 H C-Reactive Protein 69.2 H Microbiology 09/14/24 16:40 Blood Culture - Preliminary Blood SPECIMEN COLLECTED 09/14/24 16:36 Blood Culture - Preliminary Blood SPECIMEN COLLECTED Cardiac Studies: Echocardiogram 08/25/24 Cardiac Event Monitor 08/27/24
--- NOTE | 2024-09-15 11:55 | W.PM.OPSUD ---
Surgery/Procedure H&P Update DATE OF PROCEDURE: September 15, 2024 DATE H&P PERFORMED: 09/14/24 H&P UPDATE INFORMATION: I have reviewed H&P completed within last 30 days, I have examined patient prior to procedure, No changes to prior documentation and Risks and benefits of the procedure reviewed PREOP DIAGNOSIS: Abscess left foot PLANNED PROCEDURE: Operation Date: 09/15/24 12:00 Proposed Procedures p Incision And Drainage-Abscess Left Foot(Left) - Saturnino Person DPM
--- NOTE | 2024-09-15 11:56 | PM.CONSULT ---
Providers/Reason For Consult Consulting Physician/Specialty*: Saturnino Person D.P.M. Reason for Consult*: Abscess and osteomyelitis left foot Attending Physician: Jax Matos MD Primary Care Provider: REYES Dial History of Present Illness History of Present Illness Luther Abdullahi is a 34 year old male presents with a worsening of wound to the left foot is with history of gangrene of the left great toe and underwent partial first ray resection of the left foot with delayed closure. Performed on 08/26/2024 bone culture intraoperatively significant for strep group G and strep group B, patient placed on PICC line with IV antibiotic course for minimum of 6 weeks, was noticed to have worsening of left foot consistent with abscess with MRI showing osteomyelitis of the first metatarsal and second metatarsal. Review of Systems General: Reports: 10 or more systems reviewed and unremarkable except in HPI and below Const: Denies: fever(s) or chills Card: Denies: chest pain or palpitations Resp: Denies: productive cough GI: Denies: abdominal pain, nausea or vomiting : Denies: flank pain Musc: Reports: extremity swelling, joint pain, joint stiffness, limited range of motion and deformity Skin/Breast: Reports: nail changes and change in hair; Denies: rash or sores Neuro: Reports: numbness in extremities, sensory changes and difficulty walking Psych: Denies: suicidal ideation Fito/Lymph: Denies: easy bruising Medications/Allergies Home Medications ?Medication ?Instructions ?Recorded ?Confirmed ?Last Taken ?Type insulin lispro 100 unit/mL 5 unit (0.05 mL) SUBCUT TID #15 mL 08/25/24 09/15/24 09/14/24 Rx subcutaneous pen (Humalog KwikPen (U-100) Insulin) pen needle, diabetic 29 gauge x #100 ea 08/25/24 09/15/24 Unknown Rx 1/2 (Ultra-Thin II Insulin Pen [place]) blood-glucose meter (Glucocard 01 #1 ea 08/26/24 09/15/24 Unknown Rx Meter kit) daptomycin 500 mg intravenous 800 mg IVP Q24H #0 ea 08/27/24 09/15/24 Unknown Rx solution insulin glargine 100 unit/mL 30 unit (0.3 mL) SUBCUT BEDTIME 30 08/27/24 09/15/24 09/13/24 Rx subcutaneous solution (Lantus days #30 mL U-100 Insulin) metoprolol succinate 25 mg capsule 25 mg PO DAILY #30 ea 08/27/24 09/15/24 09/14/24 Rx sprinkle, ext. release 24 hr mupirocin 2 % topical ointment 1 applic topical TID #15 grams 08/27/24 09/15/24 09/14/24 Rx (Centany) Wheelchair with elevated leg rest #1 ea 09/01/24 09/15/24 Unknown Rx to left blood-glucose sensor (Dexcom G7 #9 ea 09/09/24 09/15/24 Unknown Rx Sensor device) blood-glucose,intraoperative neuro tech,cont #1 ea 09/09/24 09/15/24 Unknown Rx (Dexcom G7 Flame Cutter) hydrocodone 7.5 mg-acetaminophen 1 tab PO Q8H PRN Pain 09/15/24 09/15/24 Unknown History 325 mg tablet Allergies Allergy/AdvReac Type Severity Reaction Status Date / Time No Known Allergies Allergy Verified 09/14/24 12:45 Current Medications Generic Name Dose Route Start Last Admin Trade Name Freq PRN Reason Stop Dose Admin Enoxaparin Sodium 40 mg 09/14/24 14:45 09/14/24 17:59 Enoxaparin 40 Mg/0.4 Ml Syringe SUBCUT 40 mg On Hold: 09/15/24 11:19 Q24H KIMBERLY Administration Comment: Order held by Process Transfer Daptomycin 800 mg/ Sodium 100 mls @ 100 mls/hr 09/14/24 16:00 09/14/24 19:21 Chloride IV Infused On Hold: 09/15/24 11:19 Q24H KIMBERLY Infusion Comment: Order held by Process Transfer Insulin Glargine 20 unit 09/14/24 21:00 09/14/24 21:45 Insulin Glargine 100 Units/1 Ml SUBCUT 20 unit On Hold: 09/15/24 11:19 BEDTIME KIMBERLY Administration Comment: Order held by Process Transfer Insulin Human Lispro 0 unit 09/14/24 18:00 09/15/24 08:10 Insulin Lispro 100 Unit/1 Ml SUBCUT Not Given On Hold: 09/15/24 11:19 TIDWM KIMBERLY Comment: Order held by Process Protocol Transfer Meropenem 1,000 mg 09/14/24 15:00 09/15/24 06:21 Meropenem 1,000 Mg Sdv IVP 1,000 mg On Hold: 09/15/24 11:19 Q8H KIMBERLY Administration Comment: Order held by Process Protocol Transfer Metoprolol Succinate 25 mg 09/15/24 09:00 09/15/24 08:10 Metoprolol Succinate Er (24 Hr) 25 Mg Tablet PO 25 mg On Hold: 09/15/24 11:19 DAILY KIMBERLY Administration Comment: Order held by Process Transfer Pantoprazole Sodium 40 mg 09/14/24 15:00 09/14/24 17:59 Pantoprazole 40 Mg Sdv IVP 40 mg On Hold: 09/15/24 11:19 Q24H KIMBERLY Administration Comment: Order held by Process Transfer PFSH Acute PFSH: Medical History Diabetes mellitus Surgical History History of nasal surgery at age 3 due to being hit by a baseball. History of incision and drainage of his posterior neck due to a spider bite in 2018 Family History Father Diabetes mellitus, type 2 Hypertension Atrial fibrillation Family/Other Stroke uncle- maternal Denies family history of Diabetes Heart disease Chronic kidney disease (CKD) Cancer Thyroid disease Social History Smoking and tobacco/nicotine status: never used tobacco/nicotine Alcohol intake: never Substance/Drug Use: former Date of last use: 2021 Former substance use details: last tried an edible in 2021 Vitals/I&O/Wt Last Vital Signs Temp 97.5 F L 09/15/24 07:57 Pulse 81 09/15/24 07:57 Resp 17 09/15/24 07:57 BP 132/87 09/15/24 07:57 Pulse Ox 98 09/15/24 07:57 O2 Del Method Room Air 09/15/24 07:57 09/14/24 09/15/24 09/15/24 22:59 06:59 14:59 Intake Total 580 / 580 Balance 580 / 580 Weight last 48 hrs Weight 217 lb Weight 217 lb 2 oz Physical Exam Narrative: GENERAL: Patient is alert and oriented ?3 and in no acute distress. The following is a focused bilateral lower extremity exam. VASCULAR: Dorsalis pedis palpable bilaterally. Posterior tibial arteries palpable. Capillary refill time less than 3 seconds right hallux. Calf is supple and nontender proximally and distally. Mild edema left forefoot. NEUROLOGICAL: Protective sensation diminished to light touch. DERMATOLOGICAL: Partial dehiscence left medial foot with purulent drainage and palpable fluctuant abscess at the dorsum of the left forefoot. MUSCULOSKELETAL: Status post partial first ray amputation left foot. CARDIOVASCULAR: S1, S2, normal rate, normal rhythm. Dorsalis pedis and posterior tibial arteries palpable. LUNGS: Clear to auscltation, no use of acessory muscles, no crackles or wheezes. Data 09/15/24 05:28 09/15/24 05:28 Micro: Microbiology 09/14/24 16:40 Blood Culture - Preliminary Blood SPECIMEN COLLECTED 09/14/24 16:36 Blood Culture - Preliminary Blood SPECIMEN COLLECTED Other data: Patient: Luther Abdullahi Unit #: [id number] : 1990 Age/Sex: 34 / M ADM Date: 09/14/24 Loc: [facility] Room/Bed: [facility] Attending Dr: Jax Matos MD Ordering Provider/Ordering MD: Jax Matos MD Date of Service: 09/14/24 Procedure(s): MR chuck POLLOCK wo/w con [id number] Accession Number(s): [id number] Report Number: [id number] PROCEDURE INFORMATION: Exam: MR Left Lower Extremity Other Than Joint Without and With Contrast; Foot Exam date and time: 09/14/2024 5:13 PM Age: 34 years old Clinical indication: Cellulitis and swelling, leg or foot; Prior surgery; Surgery date: <1 month; Surgery type: Left big toe amputation; Additional info: Osteomyelitis TECHNIQUE: Imaging protocol: Magnetic resonance imaging of the left lower extremity without and with contrast. Exam focused on the foot. Contrast material: MULTIHANCE; Contrast volume: 20 ml; Contrast route: INTRAVENOUS (IV); COMPARISON: foot wo/w con [id number] 08/24/2024 11:15 AM FINDINGS: Status post resection of the great toe at the MTP joint. T2 hyperintense, T1 mildly hypointense 1st metatarsal and mid to distal 2nd metatarsal and second proximal phalanx. There is a large abscess extending from the postsurgical site of the amputation measuring 5.1 x 2.6 x 2.6 cm extending to the medial aspect of the 2nd metatarsus spanning 3 cm and dorsally of the 3rd metatarsus measuring 3.0 x 1.8 x 2.3 cm. Diffuse soft tissue edema about the foot. Diffuse muscular edema suggestive of myositis. No distinct evidence of tear of the tendons or ligaments. MR/MR foot LT wo/w con [id number] IMPRESSION: Findings of osteomyelitis of the 1st metatarsal and mid to distal 2nd metatarsal and 2nd proximal phalanx with large abscess extending from post surgical site to the 2nd/3rd metatarsals dorsally. Diffuse muscular edema suggestive of myositis. Dictated By: Irwin Louie DO A&P Assessment and plan (1) Osteomyelitis of foot, left, acute: (2) Abscess of left foot: (3) Diabetic peripheral neuropathy associated with type 2 diabetes mellitus: Plan 34 year old male presents with a worsening of wound to the left foot is with history of gangrene of the left great toe and underwent partial first ray resection of the left foot with delayed closure. Performed on 08/26/2024 bone culture intraoperatively significant for strep group G and strep group B, patient placed on PICC line with IV antibiotic course for minimum of 6 weeks, was noticed to have worsening of left foot consistent with abscess with MRI showing osteomyelitis of the first metatarsal and second metatarsal. Reviewed MRI findings with patient at length, has an obvious abscess with yojana purulence out of the incision left medial foot necessitating I&D, given the extent of osteomyelitis of the 1st and 2nd metatarsals discussed metatarsectomy versus transmetatarsal amputation as a more functional level of amputation that can be fitted with prosthesis. Patient is in agreements. I reviewed at length with the patient, the risks, potential complications, benefits, alternatives, expectations, and typical outcomes associated with the surgery. The risks and potential complications were explained in detail, including but not limited to infection, wound dehiscence or soft tissue complications, bleeding and hematoma, chronic edema, neuritis or nerve damage producing numbness or chronic pain, CRPS, failure to relieve pain or worsening pain, thick / painful / unsightly scar, limited motion / stiffness, malposition, delayed union, malunion, or nonunion, fracture, reaction to implants, anesthetic complications, venous thromboembolism, and deformity recurrence. I discussed the notion of no regrets with the patient as it pertains to complications and outcomes. The patient seemed to understand the nature of the proposed care and required convalescence. They asked appropriate questions, answered to their satisfaction. They are aware no guarantees can be made as to a satisfactory outcome and they understand there may be other possible unforeseen complications or outcomes not listed here that will be treated accordingly if they arise. There were no written or implied guarantees given to the patient. They gave informed consent to proceed. Planning on proximal TMA to the left foot involving 1st and 2nd metatarsectomy and osteotomy at the base of the 3rd, 4th and 5th metatarsals. Will likely be a staged procedure with initial debridement and amputation, monitoring over the course of this hospitalization soft tissue show to be amenable to closure. PDMP PDMP Reviewed: Not Reviewed Coding Level of Care Code Acute Code for [facility] Diagnoses Osteomyelitis of foot, left, acute M86.172 Abscess of left foot L02.612 Diabetic peripheral neuropathy associated with type 2 diabetes mellitus E11.42
--- NOTE | 2024-09-15 12:20 | ANES.PROC ---
Anesthesia Procedures Procedure/Date: 09/15/24 Nerve Block ^: Nerve Block 1: Main Anesthesia: other (MAC anesthesia) Time Out Performed: Yes Consent: requested by attending/covering physician and from patient Nerve block location: popliteal Anesthesia monitors applied: pulse oximetry, EKG, BP cuff and oxygen Nerve block position: supine Anesthetic Used: ropivicaine 0.5% Amount of anesthesia used (mL): 25 Ultrasound used to: recognize landmarks Nerve Stimulator Used?: Yes Interscalene/Femoral BLK: other needle (pjunk 4inch) Injection: neg aspiration of heme Patient Tolerated Procedure: well Complications: none
--- NOTE | 2024-09-15 12:21 | ANES.PROC ---
Anesthesia Procedures Procedure/Date: 09/15/24 Nerve Block ^: Nerve Block 1: Main Anesthesia: other (MAC anesthesia ) Time Out Performed: Yes Consent: requested by attending/covering physician and from patient Nerve block location: adductor canal Anesthesia monitors applied: pulse oximetry, EKG, BP cuff and oxygen Nerve block position: supine Anesthetic Used: ropivicaine 0.5% Amount of anesthesia used (mL): 15 Ultrasound used to: recognize landmarks Interscalene/Femoral BLK: other needle (pjunk 4inch) Injection: neg aspiration of heme Patient Tolerated Procedure: well Complications: none
[2024-09-15 12:45] LABS: Glucose Point of Care 97 mg/dL (70-110)
[2024-09-15] MEDS: VANCOMYCIN ADD-Vantage 1,000 MG VIAL 1000 MG XX (12:52)
--- NOTE | 2024-09-15 13:08 | W.PM.BPON ---
Date of Procedure: 06/13/23 Surgeon: Saturnino Person DPM Manufacturing Specialist(s): José Miguel Procedure(s) performed: Incision and debridement with transmetatarsal amputation left foot Findings of the procedure(s): Acute osteomyelitis left foot including 1st and 2nd metatarsal as well as purulent abscess dorsum and plantar left foot. Estimated blood loss: 25 mL Specimen(s) removed: Left forefoot sent to pathology for permanent. Bone from 1st and 2nd metatarsal sent to microbiology for Gram stain culture and sensitivity. Post-operative diagnosis: Osteomyelitis and abscess left foot.
--- NOTE | 2024-09-15 13:09 | P.OP_ITS ---
Operative Report Date of procedure: September 15, 2024 Pre-op diagnosis: Diabetes with peripheral neuropathy Osteomyelitis left first metatarsal Osteomyelitis left second metatarsal Abscess left foot Cellulitis left foot Post-op diagnosis: Same Post-op findings: Devitalized bone left 1st and 2nd metatarsals. Abscess with white purulence both dorsally and plantarly left forefoot. Procedure done: Left transmetatarsal amputation. CPT code 90289 Implants: Simplex P cement spacer with tobramycin and vancomycin, 3-0 nylon Specimens removed/disposition: Bone from left 1st and 2nd metatarsal sent to microbiology for Gram stain, culture and sensitivity. Pathology: Left forefoot sent to pathology for permanent included toes 2, 3, 4, 5 of the left foot Surgeon: Saturnino Person DPM Delinquent Tax Collector: José Miguel Estimated blood loss: 25 34 IV fluids: See intraoperative documentation Urine output: See intraoperative documentation Complications: No complications Brief History: 34 year old male presents with a worsening of wound to the left foot is with history of gangrene of the left great toe and underwent partial first ray resection of the left foot with delayed closure. Performed on 08/26/2024 bone culture intraoperatively significant for strep group G and strep group B, patient placed on PICC line with IV antibiotic course for minimum of 6 weeks, was noticed to have worsening of left foot consistent with abscess with MRI showing osteomyelitis of the first metatarsal and second metatarsal. Reviewed MRI findings with patient at length, has an obvious abscess with yojana purulence out of the incision left medial foot necessitating I&D, given the extent of osteomyelitis of the 1st and 2nd metatarsals discussed metatarsectomy versus transmetatarsal amputation as a more functional level of amputation that can be fitted with prosthesis. Patient is in agreements. I reviewed at length with the patient, the risks, potential complications, benefits, alternatives, expectations, and typical outcomes associated with the surgery. The risks and potential complications were explained in detail, including but not limited to infection, wound dehiscence or soft tissue complications, bleeding and hematoma, chronic edema, neuritis or nerve damage producing numbness or chronic pain, CRPS, failure to relieve pain or worsening pain, thick / painful / unsightly scar, limited motion / stiffness, malposition, delayed union, malunion, or nonunion, fracture, reaction to implants, anesthetic complications, venous thromboembolism, and deformity recurrence. I discussed the notion of no regrets with the patient as it pertains to complications and outcomes. The patient seemed to understand the nature of the proposed care and required convalescence. They asked appropriate questions, answered to their satisfaction. They are aware no guarantees can be made as to a satisfactory outcome and they understand there may be other possible unforeseen complications or outcomes not listed here that will be treated accordingly if they arise. There were no written or implied guarantees given to the patient. They gave informed consent to proceed. Planning on proximal TMA to the left foot involving 1st and 2nd metatarsectomy and osteotomy at the base of the 3rd, 4th and 5th metatarsals. Will likely be a staged procedure with initial debridement and amputation, monitoring over the course of this hospitalization soft tissue show to be amenable to closure. Procedure: Under mild sedation the patient was brought to the operating room and remained on the gurney in supine position. A timeout was performed. Anesthesia was then administered by the anesthesia service. Of note left popliteal block was performed per anesthesia service. Well-padded pneumatic tourniquet applied the left ankle. The left lower extremity was scrubbed, prepped and draped utilizing normal aseptic technique. Left foot was elevated and tourniquet inflated to 250 mmHg. Attention was directed to sutures at the medial left forefoot which were removed and passed from the operative field, heavy purulent drainage both white and serosanguineous was expressed immediately upon suture removal. Plan [place] incision was carried out from medial to lateral full-thickness with a #10 blade from first metatarsal to fifth metatarsal, dorsal and plantar flaps were sharply created and thorough debridement of subcutaneous tissue and myofascial layer was performed with encountered abscess at the dorsum and plantar aspect of the left forefoot this was evacuated sharply with pickups and a 15 blade and irrigated with Irrisept and copious amounts of sterile saline solution. Devitalized soft and discolored bone was dusky lieberman of the first metatarsal and second metatarsal due to involved infection and more curative level of surgery the 1st and 2nd metatarsals were disarticulated at tarsometatarsal joint, bone from the 1st and 2nd metatarsals of the left foot was sent to microbiology for Gram stain culture and sensitivity. A osteotomy was then performed of the metatarsals 3, 4, 5 with a TPS saw. Left forefoot was sent to pathology for gross anatomical review this included toes 2, 3, 4, 5 of the left foot. Of note the left great toe was previously amputated at a prior hospitalization. Further irrigation with Irrisept and saline solution followed by debridement of all visualized devitalized tissue to healthy margins achieved intraoperatively, of concern was dusky lieberman skin at the dorsum of the left forefoot is questionable for closure and viability postdebridement. All bleeders were ligated and cauterized as necessary. Simplex P with tobramycin and vancomycin 1 g mixed in placed in contact with the tarsometatarsal joint and remaining metatarsals 3, 4, 5 to the left foot this is a temporary antibiotic delivery system that will be explanted likely during this hospitalization at next debridement, dorsal and plantar TMA flap was loosely approximated with 3-0 nylon. Dressing consisting of saline wet-to-dry 4 x 4 gauze, ABD pad and Kerlix followed by Coban applied to the left foot and tourniquet was deflated. Patient will require further debridement for more definitive viable margins prior to closure during this hospitalization. Patient transferred to the PACU with vital signs stable and vascular status intact. Following a period of postoperative monitoring, transferred back to the floor to continue empiric IV antibiotics.
--- NOTE | 2024-09-15 13:15 | ANE.PACU2 ---
Inpatient post-anesthesia follow up: Airway intact: Yes Vital signs: Temperature 97.9 F Pulse Rate 76 Respiratory Rate 18 Blood Pressure 113/78 Pulse Oximetry 98 Oxygen Delivery Me thod Room Air Oxygen Flow Rate Fraction of Inspir ed Oxygen Hydration adequate: Yes Nausea and vomiting: No Pain level: 2 Mental status: Baseline
--- NOTE | 2024-09-15 14:58 | P.PN_ITS ---
Subjective 2 Subjective: Patient was seen this morning, is alert and oriented x 3, following commands, no fevers, chills, no cough Vitals/I&O/Wt Last Vital Signs Temp 97.6 F 09/15/24 14:07 Pulse 86 09/15/24 14:30 Resp 18 09/15/24 14:30 BP 143/91 09/15/24 14:30 Pulse Ox 99 09/15/24 14:30 O2 Del Method Room Air 09/15/24 14:30 09/14/24 09/15/24 09/15/24 22:59 06:59 14:59 Intake Total 580 / 580 0 / 0 Output Total Balance 580 / 580 - Weight last 48 hrs Weight 98.43 kg Weight 98.486 kg Physical Exam 2 Const: COMMON NORMALS: no acute distress and patient oriented x3 Resp: COMMON NORMALS: normal respiratory effort, No retractions, No use of accessory muscles and clear to auscultation bilaterally AUSCULTATION: clear to auscultation bilaterally Cardio: COMMON NORMALS: regular rate, regular rhythm, S1 normal heart sound present and S2 normal heart sound present RATE: regular rate RHYTHM: r egular rhythm HEART SOUNDS: S1 normal heart sound present and S2 normal heart sound present GI: COMMON NORMALS: Normal to inspection, nondistended, normoactive bowel sounds present and non-tender Extremity: COMMON NORMALS: no pedal edema Neuro: COMMON NORMALS: patient oriented x3 Psych: COMMON NORMALS: mental status grossly normal Data 09/15/24 05:28 09/15/24 05:28 Micro: Microbiology 09/14/24 16:40 Blood Culture - Preliminary Blood SPECIMEN COLLECTED 09/14/24 16:36 Blood Culture - Preliminary Blood SPECIMEN COLLECTED A&P Assessment and plan (1) Cellulitis of left foot: (2) Abscess: (3) Osteomyelitis: (4) Sepsis: Plan Left foot cellulitis - With underlying abscess - With osteomyelitis MRI left foot MR/MR foot LT wo/w con [id number] IMPRESSION: Findings of osteomyelitis of the 1st metatarsal and mid to distal 2nd metatarsal and 2nd proximal phalanx with large abscess extending from post surgical site to the 2nd/3rd metatarsals dorsally. Diffuse muscular edema suggestive of myositis. Plan - Will admit to medical floors - Blood cultures - Tissue cultures have been obtained in clinic according to patient - Continue daptomycin 800 mg IV every 24 hours - Add meropenem 1 g IV every 8 hours for Pseudomonas coverage - Diabetic diet - N.p.o. plan on surgical management today -Arterial ultrasound - Full code - Lovenox for DVT prophylaxis Type 2 diabetes mellitus - Lantus 20 units at bedtime - Monitor with sliding scale Plan for today IV antibiotics, surgical intervention PDMP PDMP Reviewed: Not Reviewed Attestations 2 Medical Necessity Statement*: Patient requires hospitalization for left foot cellulitis, abscess, osteomyelitis Diagnoses Cellulitis of left foot L03.116 Abscess L02.91 Osteomyelitis M86.9 Sepsis A41.9
[2024-09-15] MEDS: enoxaparin 40 mg/0.4 mL Syringe SUBCUT (15:48)
[2024-09-15] MEDS: mupirocin oint 22 gm 1 APPLIC TOPICAL ×2 (15:49→21:13)
[2024-09-15] MEDS: pantoprazole 40 mg SDV IVP (15:49)
[2024-09-15] MEDS: DAPTOmycin 500 MG SDV 800 MG IVP (15:50)
--- NOTE | 2024-09-15 19:04 | XRR_ITS ---
PROCEDURE INFORMATION: Exam: XR Left Foot Exam date and time: 09/15/2024 7:47 PM Age: 34 years old Clinical indication: Screening exam; Prior surgery; Surgery date: Post-operative (0-2 days); Surgery type: Postop left midfoot amputation TECHNIQUE: Imaging protocol: Radiologic exam of the left foot. Views: 3 or more views. COMPARISON: MR foot LT wo/w con [id number] 09/14/2024 5:13 PM FINDINGS: Bones/joints: Amputation of the 1st through 5th toes at the level of the proximal metatarsals. 8.2 cm cement implant along the amputation stumps. Soft tissues: Soft tissue swelling with small gas bubbles in the amputation stump. XR/XR foot LT min 3V* [id number] IMPRESSION: 1. No evidence of active osteomyelitis. 2. Amputation of the 1st through 5th toes.
[2024-09-15] MEDS: sodium chloride 0.9% 1,000 ML 30 ML IV (19:15)
[2024-09-15 20:43] LABS: Glucose Point of Care 134 mg/dL (70-110)
[2024-09-15 20:43] LABS: Glucose Point of Care 213 mg/dL (70-110)
[2024-09-15 20:43] LABS: Glucose Point of Care 79 mg/dL (70-110)
[2024-09-15] MEDS: insulin glargine 100 units/1 mL 30 UNIT SUBCUT (21:13)
[2024-09-15] MEDS: insulin lispro 100 unit/1 mL SUBCUT (21:13)
[2024-09-15] MEDS: HYDROcodone-acetaminophen 7.5-325 mg Tablet 1 TAB PO (21:20)
[2024-09-16] VITALS (11 sets, daily range): BP systolic 97–115; BP diastolic 64–75; PULSE 88–100; RESP 15–18; TEMP 36.6–37.8; O2SAT 94–98
[2024-09-16 05:09] LABS: Basophils # 0.1 10^3/uL (0.0-0.1); Basophils % 0.7 %; Eosinophils # 0.2 10^3/uL (0.0-0.8); Eosinophils % 2.7 %; Hematocrit 32.4 % (37-53); Lymphocytes % 24.8 %; Mean Corpuscular HGB Conc 32.7 g/dL (30-55); Mean Corpuscular Hemoglobin 27.3 pg (27-33); Mean Corpuscular Volume 83.5 fl (82-101); Mean Platelet Volume 9.2 fL (7.4-10.4); Monocytes # 0.8 10^3/uL (0.2-0.9); Monocytes % 9.9 %; Neutrophils # 4.95 10^3/uL (1.8-7.7); Neutrophils % 61.7 %; Nucleated Red Blood Cells % 0 %; Platelet Count 268 10^3/cmm (157-399); Red Blood Count 3.88 10^6/uL (3.85-5.65); Red Cell Distribution Width 12.3 % (12.1-15.1); White Blood Count 8.05 10^3/uL (3.29-11.43)
[2024-09-16 05:24] LABS: Anion Gap 14.8 (5-19); Blood Urea Nitrogen 12 mg/dL (6-20); Calcium 8.4 mg/dL (8.5-10.5); Carbon Dioxide 25 mmol/L (22-29); Chloride 101 mmol/L (98-107); Creatinine Clr Calc Pharmacy 208.1396; Glomerular Filtration Rate 152.4 mL/min (90-130); Glucose 176 mg/dL (65-115); Osmolality Calculated 288 mOsm/kg (285-295); Potassium 3.8 mmol/L (3.5-5.1); Sodium 137 mmol/L (136-145)
[2024-09-16] MEDS: meropenem 1,000 mg SDV 1000 MG IVP (06:27)
[2024-09-16] MEDS: mupirocin oint 22 gm 1 APPLIC TOPICAL ×3 (08:15→21:10)
[2024-09-16] MEDS: metoprolol succinate ER (24 HR) 25 mg Tablet PO (08:18)
[2024-09-16 08:23] LABS: Glucose Point of Care 180 mg/dL (70-110)
[2024-09-16] MEDS: insulin lispro 100 unit/1 mL SUBCUT ×2 (08:25→21:09)
[2024-09-16 11:38] LABS: Glucose Point of Care 83 mg/dL (70-110)
[2024-09-16] MEDS: HYDROcodone-acetaminophen 7.5-325 mg Tablet 1 TAB PO (13:04)
[2024-09-16 13:07] LABS: Glucose Point of Care 134 mg/dL (70-110)
--- NOTE | 2024-09-16 14:22 | P.PN_ITS ---
Subjective 2 Subjective: Patient seen bedside this a.m. and p.m., dressing changes p.m. Tolerating regular diet. Minimal pain at left foot. His mother is present. Patient denies any subjective nausea, vomiting, fever, chills, shortness of breath or chest pain. Vitals/I&O/Wt Last Vital Signs Temp 98.3 F 09/16/24 11:55 Pulse 92 09/16/24 11:55 Resp 16 09/16/24 11:55 BP 111/71 09/16/24 11:55 Pulse Ox 98 09/16/24 11:55 O2 Del Method Room Air 09/16/24 11:55 09/15/24 09/16/24 09/16/24 22:59 06:59 14:59 Intake Total 1380 / 1380 750 / 2130 480 / 480 Balance 1380 / 1355 750 / 2105 480 / 480 Weight last 48 hrs Weight 219 lb 14.4 oz Weight 217 lb Physical Exam 2 Narrative: GENERAL: Patient is alert and oriented ?3 and in no acute distress. The following is a focused bilateral lower extremity exam. VASCULAR: Dorsalis pedis palpable bilaterally. Posterior tibial arteries palpable. Capillary refill time less than 3 seconds right hallux. Calf is supple and nontender proximally and distally. Mild edema left forefoot. NEUROLOGICAL: Protective sensation diminished to light touch. DERMATOLOGICAL: Dorsal skin flap at amputation site of left transmetatarsal amputation has a area centrally and distally that is dusky and questionable in appearance, overall erythema is improving, plantar flap is viable. No active bleeding from the left foot, no purulence from the left foot. MUSCULOSKELETAL: Status post left transmetatarsal amputation. Data 09/16/24 04:38 09/16/24 04:38 Micro: Microbiology 09/15/24 13:04 Gram Stain - Final Bone 09/14/24 16:40 Blood Culture - Preliminary Blood NEGATIVE TO DATE 09/14/24 16:36 Blood Culture - Preliminary Blood NEGATIVE TO DATE A&P Assessment and plan (1) Osteomyelitis of foot, left, acute: (2) Abscess of left foot: (3) Diabetic peripheral neuropathy associated with type 2 diabetes mellitus: Plan 34 year old male presents with a worsening of wound to the left foot is with history of gangrene of the left great toe and underwent partial first ray resection of the left foot with delayed closure. Performed on 08/26/2024 bone culture intraoperatively significant for strep group G and strep group B, patient placed on PICC line with IV antibiotic course for minimum of 6 weeks, was noticed to have worsening of left foot consistent with abscess with MRI showing osteomyelitis of the first metatarsal and second metatarsal. - Status post left transmetatarsal amputation 09/15/2024 left open for possible delayed closure. - Will monitor daily for clinical improvement of the amputation site soft tissue flaps, tentatively scheduled for debridement and closure on September 20, not amenable to closure today. - Nonweightbearing left foot - Continuing empiric of antibiotics. Additional operative cultures taken yesterday pending Podiatry will round daily through the weekend and monitor soft tissue quality for consideration of delayed closure on Friday. PDMP PDMP Reviewed: Not Reviewed Attestations 2 Medical Necessity Statement*: Requires continued antibiotics, clinical monitoring for possible delayed closure tentatively scheduled for Friday. Coding Level of Care Code Acute Code for [facility] Diagnoses Osteomyelitis of foot, left, acute M86.172 Abscess of left foot L02.612 Diabetic peripheral neuropathy associated with type 2 diabetes mellitus E11.42
[2024-09-16 16:26] LABS: Glucose Point of Care 139 mg/dL (70-110)
--- NOTE | 2024-09-16 16:33 | P.PN_ITS ---
Subjective 2 Subjective: Patient was seen this morning, currently alert oriented x 3, following all commands, denies any fevers, no chills, no cough, patient is on meropenem he has tolerated without any side effects during his last hospitalization after 30 minutes into his infusion of meropenem he started developing palpitations and had an episode of SVT, he denies breaking out into a rash, no hives, no trouble breathing, no lip or tongue swelling. He is reported that before he his hospitalization the last time, he has been having a history of chest palpitations, discussed the possibility of allergy versus adverse side effect of meropenem versus coincidence of timing, after discussing the risk and benefits of all options, he voiced presenting, concerns are, agreed to continue meropenem for now, he has been on it currently, without any side effects reported will monitor closely Vitals/I&O/Wt Last Vital Signs Temp 98.1 F 09/16/24 15:59 Pulse 92 09/16/24 15:59 Resp 18 09/16/24 15:59 BP 107/71 09/16/24 15:59 Pulse Ox 95 09/16/24 15:59 O2 Del Method Room Air 09/16/24 15:59 09/16/24 09/16/24 09/16/24 06:59 14:59 22:59 Intake Total 750 / 2130 960 / 960 Balance 750 / 2105 960 / 960 Weight last 48 hrs Weight 99.745 kg Weight 98.43 kg Physical Exam 2 Const: COMMON NORMALS: no acute distress and patient oriented x3 Resp: COMMON NORMALS: normal respiratory effort, No retractions, No use of accessory muscles and clear to auscultation bilaterally AUSCULTATION: clear to auscultation bilaterally Cardio: COMMON NORMALS: regular rate, regular rhythm, S1 normal heart sound present and S2 normal heart sound present RATE: regular rate RHYTHM: r egular rhythm HEART SOUNDS: S1 normal heart sound present and S2 normal heart sound present GI: COMMON NORMALS: Normal to inspection, nondistended, normoactive bowel sounds present and non-tender Extremity: COMMON NORMALS: no pedal edema Neuro: COMMON NORMALS: patient oriented x3 and moves all extremities Psych: COMMON NORMALS: mental status grossly normal Data 09/16/24 04:38 09/16/24 04:38 Micro: Microbiology 09/15/24 13:04 Gram Stain - Final Bone Tissue Culture - Preliminary 09/14/24 16:40 Blood Culture - Preliminary Blood NEGATIVE TO DATE 09/14/24 16:36 Blood Culture - Preliminary Blood NEGATIVE TO DATE A&P Assessment and plan (1) Cellulitis of left foot: (2) Abscess: (3) Osteomyelitis: (4) Sepsis: Plan Left foot cellulitis, diabetic foot infection - With underlying abscess - With osteomyelitis MRI left foot MR/MR foot LT wo/w con [id number] IMPRESSION: Findings of osteomyelitis of the 1st metatarsal and mid to distal 2nd metatarsal and 2nd proximal phalanx with large abscess extending from post surgical site to the 2nd/3rd metatarsals dorsally. Diffuse muscular edema suggestive of myositis. Arterial ultrasound US/[place] [id number] IMPRESSION: 1. CARMEN 1.18 on the right and 1.1 on the left. 2. Multiphasic waveforms throughout the right leg. 3. Multiphasic waveforms at and above the knee of the left leg, with monophasic waveforms within the posterior tibial and dorsalis pedis arteries [id number] suggesting small-vessel disease. 4. No significant stenosis or occlusion is seen. -Patient is status post transmetatarsal amputation left foot Plan - Will admit to medical floors - Blood cultures - Follow surgical cultures - Continue daptomycin 800 mg IV every 24 hours - Meropenem 2 g IV every 8 hours for Pseudomonas coverage - Diabetic diet - N.p.o. plan on surgical management Friday - Full code - Lovenox for DVT prophylaxis Type 2 diabetes mellitus - Lantus 20 units at bedtime - Monitor with sliding scale History of SVT, monitor Plan for today IV antibiotics, surgical intervention PDMP PDMP Reviewed: Not Reviewed Attestations 2 Medical Necessity Statement*: Patient requires hospitalization for diabetic foot infection, with osteomyelitis status post left TMA, requiring IV antibiotics Diagnoses Cellulitis of left foot L03.116 Abscess L02.91 Osteomyelitis M86.9 Sepsis A41.9
[2024-09-16] MEDS: MEROPENEM 2,000 MG in sodium chloride 0.9% (plus) 50 ML 100 MG IV ×2 (16:46→23:02)
[2024-09-16] MEDS: enoxaparin 40 mg/0.4 mL Syringe SUBCUT (16:46)
[2024-09-16] MEDS: pantoprazole 40 mg SDV IVP (16:47)
[2024-09-16] MEDS: aspirin 81 mg EC Tablet PO (16:47)
--- NOTE | 2024-09-16 17:37 | PC.NURSE ---
notified Dr. Matos of blood sugar 139. Orders to hold 5 units of insulin.
[2024-09-16] MEDS: DAPTOmycin 500 MG SDV 800 MG IVP (17:38)
[2024-09-16 20:30] LABS: Glucose Point of Care 173 mg/dL (70-110)
[2024-09-16] MEDS: atorvastatin 40 mg Tablet PO (21:09)
[2024-09-16] MEDS: morphine 4 mg/mL SDV 1 mL 2 MG IVP (21:10)
[2024-09-16] MEDS: insulin glargine 100 units/1 mL 30 UNIT SUBCUT (23:06)
[2024-09-17] VITALS (8 sets, daily range): BP systolic 100–119; BP diastolic 69–81; PULSE 85–92; RESP 16–18; TEMP 36.7–37.6; O2SAT 96–98
[2024-09-17 05:41] LABS: Basophils # 0.1 10^3/uL (0.0-0.1); Basophils % 0.7 %; Eosinophils # 0.2 10^3/uL (0.0-0.8); Eosinophils % 2.3 %; Hematocrit 31.7 % (37-53); Lymphocytes # 2.2 10^3/uL (0.8-4.8); Lymphocytes % 24.3 %; Mean Corpuscular HGB Conc 32.8 g/dL (30-55); Mean Corpuscular Hemoglobin 27.2 pg (27-33); Mean Platelet Volume 9.3 fL (7.4-10.4); Monocytes # 0.8 10^3/uL (0.2-0.9); Monocytes % 8.4 %; Neutrophils # 5.72 10^3/uL (1.8-7.7); Nucleated Red Blood Cells % 0 %; Platelet Count 254 10^3/cmm (157-399); Red Blood Count 3.82 10^6/uL (3.85-5.65); Red Cell Distribution Width 12.3 % (12.1-15.1); White Blood Count 8.94 10^3/uL (3.29-11.43)
[2024-09-17 06:05] LABS: Anion Gap 12.9 (5-19); Blood Urea Nitrogen 11 mg/dL (6-20); Calcium 8.5 mg/dL (8.5-10.5); Carbon Dioxide 26 mmol/L (22-29); Chloride 100 mmol/L (98-107); Creatinine Clr Calc Pharmacy 208.8387; Glomerular Filtration Rate 152.4 mL/min (90-130); Glucose 123 mg/dL (65-115); Osmolality Calculated 281 mOsm/kg (285-295); Potassium 3.9 mmol/L (3.5-5.1); Sodium 135 mmol/L (136-145)
[2024-09-17] MEDS: MEROPENEM 2,000 MG in sodium chloride 0.9% (plus) 50 ML 100 MG IV ×3 (06:08→22:32)
[2024-09-17 06:23] LABS: Glucose Point of Care 143 mg/dL (70-110)
[2024-09-17] MEDS: insulin lispro 100 unit/1 mL SUBCUT ×3 (09:20→21:01)
[2024-09-17] MEDS: aspirin 81 mg EC Tablet PO (09:21)
[2024-09-17] MEDS: metoprolol succinate ER (24 HR) 25 mg Tablet PO (09:21)
--- NOTE | 2024-09-17 09:38 | P.CONIM_ITS ---
Providers/Reason For Consult 2 Consulting Physician/Specialty*: Milagros Pratt MD/ Infectious Disease Reason for Consult*: Foot abscess, osteomyelitis Requesting Physician: Jax Matos MD Attending Physician: Jax Matos MD Primary Care Provider: REYES Dial History of Present Illness History of Present Illness Luther Abdullahi is a 34 year old male Medications/Allergies Home Medications ?Medication ?Instructions ?Recorded ?Confirmed ?Last Taken ?Type insulin lispro 100 unit/mL 5 unit (0.05 mL) SUBCUT TID #15 mL 08/25/24 09/15/24 09/14/24 Rx subcutaneous pen (Humalog KwikPen (U-100) Insulin) pen needle, diabetic 29 gauge x #100 ea 08/25/2409/15 Unknown Rx 1/2 (Ultra-Thin II Insulin Pen [place]) blood-glucose meter (Glucocard 01 #1 ea 08/26/2409/15 Unknown Rx Meter kit) daptomycin 500 mg intravenous 800 mg IVP Q24H #0 ea 09/15/24 Unknown Rx solution insulin glargine 100 unit/mL 30 unit (0.3 mL) SUBCUT B EDTIME 30 08/27/24 09/15/24 09/13/24 Rx subcutaneous solution (Lantus days #30 mL U-100 Insulin) metoprolol succinate 25 mg capsule 25 mg PO DAILY #30 ea 08/27/24 09/15/24 09/14/24 Rx sprinkle, ext. 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 #1 ea 09/09/24 09/15/24 Un known Rx (Dexcom G7 [employer]mer) hydrocodone 7.5 mg-acetaminophen 1 tab PO Q8H PRN Pain 09/15/24 09/15/24 Unknown History 325 mg tablet Allergies Allergy/AdvReac Type Severity Reaction Status Date / Time No Known Allergies Allergy Verified 09/14/24 12:45 Current Medications Generic Name Dose Route Start Last Admin Trade Name Freq PRN Reason Stop Dose Admin Hydrocodone Bitart/Acetaminophen 1 tab 09/15/24 14:07 09/16/24 13:04 Hydrocodone-Acetaminophen 7.5-325 Mg Tablet PO 1 tab Q8H PRN Administration PAIN Aspirin 81 mg 09/16/24 16:35 09/17/24 09:21 Aspirin 81 Mg Ec Tablet PO 81 mg DAILY KIMBERLY Administration Atorvastatin Calcium 40 mg 09/16/24 21:00 09/16/24 21:09 Atorvastatin 40 Mg Tablet PO 40 mg BEDTIME KIMBERLY Administration Daptomycin 800 mg 09/15/24 15:00 09/16/24 17:38 Daptomycin 500 Mg Sdv IVP 800 mg Q24H KIMBERLY Administration Protocol Enoxaparin Sodium 40 mg 09/14/24 14:45 09/16/24 16:46 Enoxaparin 40 Mg/0.4 Ml Syringe SUBCUT 40 mg Q24H KIMBERLY Administration Meropenem 2,000 mg/ Sodium 50 mls @ 100 mls/hr 09/16/24 15:00 09/17/24 07:14 Chloride IV Infused Q8H KIMBERLY Infusion Insulin Glargine 30 unit 09/15/24 21:00 09/16/24 23:06 Insulin Glargine 100 Units/1 Ml SUBCUT 30 unit BEDTIME KIMBERLY Administration Insulin Human Lispro 5 unit 09/15/24 15:00 09/17/24 09:20 Insulin Lispro 100 Unit/1 Ml SUBCUT 5 unit TID KIMBERLY Administration Metoprolol Succinate 25 mg 09/16/24 09:00 09/17/24 09:21 Metoprolol Succinate Er (24 Hr) 25 Mg Tablet PO 25 mg DAILY KIMBERLY Administration Morphine Sulfate 2 mg 09/14/24 14:40 09/16/24 21:10 Morphine 4 Mg/Ml Sdv 1 Ml IVP 2 mg Q4H PRN Administration SEVERE PAIN Mupirocin 1 applic 09/15/24 15:00 09/16/24 21:10 Mupirocin Oint 22 Gm TOPICAL 1 applic TID KIMBERLY Administration Pantoprazole Sodium 40 mg 09/14/24 15:00 09/16/24 16:47 Pantoprazole 40 Mg Sdv IVP 40 mg Q24H KIMBERLY Administration PFSH Acute 2 PFSH: Medical History Diabetes mellitus Surgical History History of nasal surgery at age 3 due to being hit by a baseball. History of incision and drainage of his posterior neck due to a spider bite in 2019 Family History Father Diabetes mellitus, type 2 Hypertension Atrial fibrillation Family/Other Stroke uncle- maternal Denies family history of Diabetes Heart disease Chronic kidney disease (CKD) Cancer Thyroid disease Social History Smoking and tobacco/nicotine status: never used tobacco/nicotine Alcohol intake: never Substance/Drug Use: former Date of last use: 2021 Former substance use details: last tried an edible in 2021 Vitals/I&O/Wt Last Vital Signs Temp 98.8 F 09/17/24 07:36 Pulse 89 09/17/24 07:36 Resp 18 09/17/24 07:36 BP 114/78 09/17/24 07:36 Pulse Ox 96 09/17/24 07:36 O2 Del Method Room Air 09/17/24 07:36 09/16/24 09/17/24 09/17/24 22:59 06:59 14:59 Intake Total 1410 / 2370 1300 / 3670 410 / 410 Balance 1410 / 2370 1300 / 3670 410 / 410 Weight last 48 hrs Weight 100.471 kg Weight 99.745 kg Data 09/17/24 04:53 09/17/24 04:53 Micro: Microbiology 09/15/24 13:04 Gram Stain - Final Bone Tissue Culture - Preliminary A&P PDMP PDMP Reviewed: Not Reviewed Coding Level of Care Code Acute Code for [facility]
[2024-09-17 10:38] LABS: Glucose Point of Care 156 mg/dL (70-110)
[2024-09-17] MEDS: mupirocin oint 22 gm 1 APPLIC TOPICAL ×3 (11:04→22:33)
--- NOTE | 2024-09-17 11:43 | P.PN_ITS ---
Subjective 2 Subjective: Patient seen bedside this a.m. and p.m., dressing changes p.m. Tolerating regular diet. Minimal pain at left foot. Patient denies any subjective nausea, vomiting, fever, chills, shortness of breath or chest pain. Vitals/I&O/Wt Last Vital Signs Temp 98.8 F 09/17/24 07:36 Pulse 89 09/17/24 07:36 Resp 18 09/17/24 07:36 BP 114/78 09/17/24 07:36 Pulse Ox 96 09/17/24 07:36 O2 Del Method Room Air 09/17/24 07:36 09/16/24 09/17/24 09/17/24 22:59 06:59 14:59 Intake Total 1410 / 2370 1300 / 3670 410 / 410 Balance 1410 / 2370 1300 / 3670 410 / 410 Weight last 48 hrs Weight 221 lb 8 oz Weight 219 lb 14.4 oz Physical Exam 2 Narrative: GENERAL: Patient is alert and oriented ?3 and in no acute distress. The following is a focused bilateral lower extremity exam. VASCULAR: Dorsalis pedis palpable bilaterally. Posterior tibial arteries palpable. Capillary refill time less than 3 seconds right hallux. Calf is supple and nontender proximally and distally. Mild edema left forefoot. NEUROLOGICAL: Protective sensation diminished to light touch. DERMATOLOGICAL: Dorsal skin flap at amputation site of left transmetatarsal amputation has a area centrally and distally that is dusky and questionable in appearance, overall erythema is improving, plantar flap is viable. No active bleeding from the left foot, no purulence from the left foot. Right great toe is well-healing has a wound limited to breakdown of skin at this point. MUSCULOSKELETAL: Status post left transmetatarsal amputation. Data 09/17/24 04:53 09/17/24 04:53 Micro: Microbiology 09/15/24 13:04 Gram Stain - Final Bone Tissue Culture - Preliminary A&P Assessment and plan (1) Osteomyelitis of foot, left, acute: (2) Abscess of left foot: (3) Diabetic peripheral neuropathy associated with type 2 diabetes mellitus: Plan 34 year old male presents with a worsening of wound to the left foot is with history of gangrene of the left great toe and underwent partial first ray resection of the left foot with delayed closure. Performed on 08/26/2024 bone culture intraoperatively significant for strep group G and strep group B, patient placed on PICC line with IV antibiotic course for minimum of 6 weeks, was noticed to have worsening of left foot consistent with abscess with MRI showing osteomyelitis of the first metatarsal and second metatarsal. - Status post left transmetatarsal amputation 09/15/2024 left open for possible delayed closure. - Will monitor daily for clinical improvement of the amputation site soft tissue flaps, tentatively scheduled for debridement and closure on September 20, not amenable to closure today. At this point dorsal skin flap has a area at 12 o'clock position that is becoming necrotic, questionable if there is enough soft tissue for closure will continue to monitor and allow soft tissue to demarcate. - Nonweightbearing left foot - Continuing empiric of antibiotics. Additional operative cultures taken yesterday pending Podiatry will round daily through the weekend and monitor soft tissue quality for consideration of delayed closure on Friday. Currently scheduled for delayed closure Friday, September 20, 2024 at 12:00/noon PDMP PDMP Reviewed: Not Reviewed Attestations 2 Medical Necessity Statement*: Requires continued hospitalization for IV antibiotics, further debridement and potential delayed closure left foot amputation site Coding Level of Care Code Acute Code for [facility] Diagnoses Osteomyelitis of foot, left, acute M86.172 Abscess of left foot L02.612 Diabetic peripheral neuropathy associated with type 2 diabetes mellitus E11.42
--- NOTE | 2024-09-17 14:26 | P.PN_ITS ---
Subjective 2 Subjective: Patient was seen this morning, currently alert oriented x 3, following all commands, denies any fevers, no chills, no cough Vitals/I&O/Wt Last Vital Signs Temp 99.5 F 09/17/24 11:45 Pulse 92 09/17/24 11:45 Resp 18 09/17/24 11:45 BP 119/81 09/17/24 11:45 Pulse Ox 98 09/17/24 11:45 O2 Del Method Room Air 09/17/24 11:45 09/16/24 09/17/24 09/17/24 22:59 06:59 14:59 Intake Total 1410 / 2370 1300 / 3670 650 / 650 Balance 1410 / 2370 1300 / 3670 650 / 650 Weight last 48 hrs Weight 100.471 kg Weight 99.745 kg Physical Exam 2 Const: COMMON NORMALS: no acute distress and patient oriented x3 Resp: COMMON NORMALS: normal respiratory effort, No retractions, No use of accessory muscles and clear to auscultation bilaterally AUSCULTATION: clear to auscultation bilaterally Cardio: COMMON NORMALS: regular rate, regular rhythm, S1 normal heart sound present and S2 normal heart sound present RATE: regular rate RHYTHM: r egular rhythm HEART SOUNDS: S1 normal heart sound present and S2 normal heart sound present GI: COMMON NORMALS: Normal to inspection, nondistended, normoactive bowel sounds present and non-tender Extremity: COMMON NORMALS: no pedal edema NARRATIVE EXTREMITY EXAM: Surgical site is wrapped Neuro: COMMON NORMALS: patient oriented x3 Psych: COMMON NORMALS: mental status grossly normal Data 09/17/24 04:53 09/17/24 04:53 Micro: Microbiology 09/15/24 13:04 Gram Stain - Final Bone Tissue Culture - Preliminary A&P Assessment and plan (1) Cellulitis of left foot: (2) Abscess: (3) Osteomyelitis: (4) Sepsis: Plan Left foot cellulitis, diabetic foot infection - With underlying abscess - With osteomyelitis MRI left foot MR/MR foot LT wo/w con [id number] IMPRESSION: Findings of osteomyelitis of the 1st metatarsal and mid to distal 2nd metatarsal and 2nd proximal phalanx with large abscess extending from post surgical site to the 2nd/3rd metatarsals dorsally. Diffuse muscular edema suggestive of myositis. Arterial [place] US/[place] [id number] IMPRESSION: 1. CARMEN 1.18 on the right and 1.1 on the left. 2. Multiphasic waveforms throughout the right leg. 3. Multiphasic waveforms at and above the knee of the left leg, with monophasic waveforms within the posterior tibial and dorsalis pedis arteries [id number] suggesting small-vessel disease. 4. No significant stenosis or occlusion is seen. -Patient is status post transmetatarsal amputation left foot, plans on delayed wound closure Plan - Will admit to medical floors - Blood cultures - Follow surgical cultures - Continue daptomycin 800 mg IV every 24 hours - Meropenem 2 g IV every 8 hours for Pseudomonas coverage - Diabetic diet - N.p.o. plan on possible surgical management Friday - Full code - Lovenox for DVT prophylaxis Type 2 diabetes mellitus - Lantus 20 units at bedtime - Monitor with 5 units 3 times daily Humalog History of SVT, monitor Plan for today IV antibiotics, surgical intervention possibly on Friday, plan on delayed wound closure until Friday follow cultures infectious disease consulted PDMP PDMP Reviewed: Not Reviewed Attestations 2 Medical Necessity Statement*: Patient requires hospitalization for left foot cellulitis, with diabetic foot infection, osteomyelitis, plan on delayed wound closure, currently on IV antibiotics Diagnoses Cellulitis of left foot L03.116 Abscess L02.91 Osteomyelitis M86.9 Sepsis A41.9
[2024-09-17] MEDS: pantoprazole 40 mg SDV IVP (14:53)
[2024-09-17] MEDS: enoxaparin 40 mg/0.4 mL Syringe SUBCUT (14:54)
[2024-09-17] MEDS: DAPTOmycin 500 MG SDV 800 MG IVP (15:38)
[2024-09-17 16:27] LABS: Glucose Point of Care 128 mg/dL (70-110)
[2024-09-17] MEDS: HYDROcodone-acetaminophen 7.5-325 mg Tablet 1 TAB PO (17:25)
[2024-09-17 20:31] LABS: Glucose Point of Care 190 mg/dL (70-110)
[2024-09-17] MEDS: atorvastatin 40 mg Tablet PO (21:01)
[2024-09-17] MEDS: insulin glargine 100 units/1 mL 30 UNIT SUBCUT (21:01)
[2024-09-17] MEDS: morphine 4 mg/mL SDV 1 mL 2 MG IVP (22:42)
[2024-09-18 04:00] VITALS: BP 118/63; PULSE 83; RESP 16; TEMP 36.6; O2SAT 96
[2024-09-18 05:13] LABS: Basophils # 0.1 10^3/uL (0.0-0.1); Basophils % 0.7 %; Eosinophils # 0.3 10^3/uL (0.0-0.8); Eosinophils % 3.8 %; Hematocrit 31.8 % (37-53); Lymphocytes % 23.8 %; Mean Corpuscular HGB Conc 32.1 g/dL (30-55); Mean Corpuscular Volume 84.1 fl (82-101); Mean Platelet Volume 9.3 fL (7.4-10.4); Monocytes # 0.7 10^3/uL (0.2-0.9); Monocytes % 8.2 %; Nucleated Red Blood Cells % 0 %; Platelet Count 265 10^3/cmm (157-399); Red Blood Count 3.78 10^6/uL (3.85-5.65); Red Cell Distribution Width 12.1 % (12.1-15.1); White Blood Count 8.26 10^3/uL (3.29-11.43)
[2024-09-18 05:31] LABS: Anion Gap 13.1 (5-19); Blood Urea Nitrogen 10 mg/dL (6-20); Calcium 8.7 mg/dL (8.5-10.5); Carbon Dioxide 28 mmol/L (22-29); Chloride 101 mmol/L (98-107); Creatinine Clr Calc Pharmacy 250.1339; Glomerular Filtration Rate 188.1 mL/min (90-130); Glucose 115 mg/dL (65-115); Osmolality Calculated 286 mOsm/kg (285-295); Potassium 4.1 mmol/L (3.5-5.1); Sodium 138 mmol/L (136-145)
[2024-09-18] MEDS: MEROPENEM 2,000 MG in sodium chloride 0.9% (plus) 50 ML 100 MG IV ×3 (06:20→23:05)
[2024-09-18 06:46] LABS: Glucose Point of Care 109 mg/dL (70-110)
--- NOTE | 2024-09-18 07:42 | PM.PN ---
Subjective Subjective: Patient seen bedside this a.m. Tolerating regular diet. Minimal pain at left foot. Patient denies any subjective nausea, vomiting, fever, chills, shortness of breath or chest pain. Vitals/I&O/Wt Last Vital Signs Temp 97.9 F 09/18/24 04:00 Pulse 83 09/18/24 04:00 Resp 16 09/18/24 04:00 BP 118/63 09/18/24 04:00 Pulse Ox 96 09/18/24 04:00 O2 Del Method Room Air 09/18/24 04:00 09/17/24 09/18/24 09/18/24 22:59 06:59 14:59 Intake Total 640 / 1290 50 / 1340 Balance 640 / 1290 50 / 1340 Weight last 48 hrs Weight 220 lb 9.6 oz Weight 221 lb 8 oz Physical Exam Narrative: GENERAL: Patient is alert and oriented ?3 and in no acute distress. The following is a focused bilateral lower extremity exam. VASCULAR: Dorsalis pedis palpable bilaterally. Posterior tibial arteries palpable. Capillary refill time less than 3 seconds right hallux. Calf is supple and nontender proximally and distally. Mild edema left forefoot. NEUROLOGICAL: Protective sensation diminished to light touch. DERMATOLOGICAL: Dorsal skin flap at amputation site of left transmetatarsal amputation has a area centrally and distally that is dusky and questionable in appearance area of concern has expanded measuring 2 cm x 1 cm dorsal flap, overall erythema is improving, plantar flap is viable. No active bleeding from the left foot, no purulence from the left foot. Right great toe is well-healing has a wound limited to breakdown of skin at this point. MUSCULOSKELETAL: Status post left transmetatarsal amputation. Data 09/18/24 04:42 09/18/24 04:42 Micro: Microbiology 09/15/24 13:04 Gram Stain - Final Bone Tissue Culture - Preliminary A&P Assessment and plan (1) Osteomyelitis of foot, left, acute: (2) Abscess of left foot: (3) Diabetic peripheral neuropathy associated with type 2 diabetes mellitus: Plan 34 year old male presents with a worsening of wound to the left foot is with history of gangrene of the left great toe and underwent partial first ray resection of the left foot with delayed closure. Performed on 08/26/2024 bone culture intraoperatively significant for strep group G and strep group B, patient placed on PICC line with IV antibiotic course for minimum of 6 weeks, was noticed to have worsening of left foot consistent with abscess with MRI showing osteomyelitis of the first metatarsal and second metatarsal. - Status post left transmetatarsal amputation 09/15/2024 left open for possible delayed closure. - Will monitor daily for clinical improvement of the amputation site soft tissue flaps, tentatively scheduled for debridement and closure on September 20, not amenable to closure today. At this point dorsal skin flap has a area at 12 o'clock position that is becoming necrotic, questionable if there is enough soft tissue for closure will continue to monitor and allow soft tissue to demarcate. - Nonweightbearing left foot - Continuing empiric of antibiotics. Additional operative cultures taken yesterday pending Podiatry will round daily through the weekend and monitor soft tissue quality for consideration of delayed closure on Friday. Currently scheduled for delayed closure Friday, September 20, 2024 at 12:00/noon PDMP PDMP Reviewed: Not Reviewed Attestations Medical Necessity Statement*: Requires continued IV antibiotics further surgical debridement and delayed closure Coding Level of Care Code Acute Code for [facility] Diagnoses Osteomyelitis of foot, left, acute M86.172 Abscess of left foot L02.612 Diabetic peripheral neuropathy associated with type 2 diabetes mellitus E11.42
[2024-09-18 08:18] VITALS: BP 111/74; PULSE 87; RESP 17; TEMP 36.9; O2SAT 95
[2024-09-18] MEDS: metoprolol succinate ER (24 HR) 25 mg Tablet PO (09:18)
[2024-09-18] MEDS: mupirocin oint 22 gm 1 APPLIC TOPICAL ×3 (09:18→21:08)
[2024-09-18] MEDS: insulin lispro 100 unit/1 mL SUBCUT ×2 (09:18→15:45)
[2024-09-18] MEDS: aspirin 81 mg EC Tablet PO (09:18)
[2024-09-18 11:03] LABS: Glucose Point of Care 164 mg/dL (70-110)
[2024-09-18 12:13] VITALS: BP 109/73; PULSE 88; RESP 17; TEMP 36.9; O2SAT 96
[2024-09-18 15:00] VITALS: PULSE 90
--- NOTE | 2024-09-18 15:21 | P.PN_ITS ---
Subjective 2 Subjective: Patient was seen this morning, currently alert oriented x 3, following all commands denies any fevers, no chills, no cough Vitals/I&O/Wt Last Vital Signs Temp 98.4 F 09/18/24 12:13 Pulse 88 09/18/24 12:13 Resp 17 09/18/24 12:13 BP 109/73 09/18/24 12:13 Pulse Ox 96 09/18/24 12:13 O2 Del Method Room Air 09/18/24 08:18 09/18/24 09/18/24 09/18/24 06:59 14:59 22:59 Intake Total 50 / 1340 530 / 530 Balance 50 / 1340 530 / 530 Weight last 48 hrs Weight 100.062 kg Weight 100.471 kg Physical Exam 2 Const: COMMON NORMALS: no acute distress and patient oriented x3 Resp: COMMON NORMALS: normal respiratory effort, No retractions, No use of accessory muscles and clear to auscultation bilaterally AUSCULTATION: clear to auscultation bilaterally Cardio: COMMON NORMALS: regular rate, regular rhythm, S1 normal heart sound present and S2 normal heart sound present RATE: regular rate RHYTHM: r egular rhythm HEART SOUNDS: S1 normal heart sound present and S2 normal heart sound present GI: COMMON NORMALS: Normal to inspection, nondistended, normoactive bowel sounds present and non-tender Extremity: COMMON NORMALS: no pedal edema NARRATIVE EXTREMITY EXAM: Foot is wrapped Neuro: COMMON NORMALS: patient oriented x3 Psych: COMMON NORMALS: mental status grossly normal Data 09/18/24 04:42 09/18/24 04:42 Micro: Microbiology 09/15/24 13:04 Gram Stain - Final Bone Tissue Culture - Final A&P Assessment and plan (1) Cellulitis of left foot: (2) Abscess: (3) Osteomyelitis: (4) Sepsis: Plan Left foot cellulitis, diabetic foot infection - With underlying abscess - With osteomyelitis MRI left foot MR/MR foot LT wo/w con [id number] IMPRESSION: Findings of osteomyelitis of the 1st metatarsal and mid to distal 2nd metatarsal and 2nd proximal phalanx with large abscess extending from post surgical site to the 2nd/3rd metatarsals dorsally. Diffuse muscular edema suggestive of myositis. Arterial [place] US/[place] [id number] IMPRESSION: 1. CARMEN 1.18 on the right and 1.1 on the left. 2. Multiphasic waveforms throughout the right leg. 3. Multiphasic waveforms at and above the knee of the left leg, with monophasic waveforms within the posterior tibial and dorsalis pedis arteries [id number] suggesting small-vessel disease. 4. No significant stenosis or occlusion is seen. -Patient is status post transmetatarsal amputation left foot, plans on delayed wound closure Plan - Will admit to medical floors - Blood cultures so far no growth - Follow surgical cultures so far no growth - Continue daptomycin 800 mg IV every 24 hours - Meropenem 2 g IV every 8 hours for Pseudomonas coverage - Diabetic diet - N.p.o. plan on possible surgical management Friday - Full code - Lovenox for DVT prophylaxis Type 2 diabetes mellitus - Lantus 20 units at bedtime - Monitor with 5 units 3 times daily Humalog History of SVT, monitor Plan for today IV antibiotics, surgical intervention possibly on Friday PDMP PDMP Reviewed: Not Reviewed Attestations 2 Medical Necessity Statement*: Patient requires hospitalization for left foot cellulitis, diabetic foot infection, osteomyelitis Diagnoses Cellulitis of left foot L03.116 Abscess L02.91 Osteomyelitis M86.9 Sepsis A41.9
[2024-09-18 15:38] LABS: Glucose Point of Care 184 mg/dL (70-110)
[2024-09-18] MEDS: pantoprazole 40 mg SDV IVP (15:44)
[2024-09-18] MEDS: enoxaparin 40 mg/0.4 mL Syringe SUBCUT (15:45)
[2024-09-18 17:46] VITALS: BP 115/73; PULSE 87; RESP 17; TEMP 37.2; O2SAT 96
[2024-09-18] MEDS: DAPTOmycin 500 MG SDV 800 MG IVP (18:00)
[2024-09-18 19:39] VITALS: BP 104/71; PULSE 94; RESP 19; TEMP 36.8; O2SAT 99
[2024-09-18] MEDS: insulin glargine 100 units/1 mL 30 UNIT SUBCUT (21:02)
[2024-09-18] MEDS: atorvastatin 40 mg Tablet PO (21:03)
[2024-09-18 21:05] LABS: Glucose Point of Care 146 mg/dL (70-110)
[2024-09-18] MEDS: HYDROcodone-acetaminophen 7.5-325 mg Tablet 1 TAB PO (21:06)
[2024-09-19] VITALS (11 sets, daily range): BP systolic 99–112; BP diastolic 63–73; PULSE 84–96; RESP 16–19; TEMP 36.6–36.9; O2SAT 95–99
[2024-09-19 05:00] LABS: Basophils # 0.1 10^3/uL (0.0-0.1); Basophils % 0.8 %; Eosinophils # 0.4 10^3/uL (0.0-0.8); Hematocrit 32.5 % (37-53); Lymphocytes # 2.3 10^3/uL (0.8-4.8); Lymphocytes % 31.6 %; Mean Corpuscular HGB Conc 31.7 g/dL (30-55); Mean Corpuscular Hemoglobin 27.1 pg (27-33); Mean Corpuscular Volume 85.5 fl (82-101); Monocytes # 0.5 10^3/uL (0.2-0.9); Monocytes % 7.1 %; Neutrophils # 4.06 10^3/uL (1.8-7.7); Neutrophils % 55.2 %; Nucleated Red Blood Cells % 0 %; Platelet Count 310 10^3/cmm (157-399); Red Cell Distribution Width 12.1 % (12.1-15.1); White Blood Count 7.35 10^3/uL (3.29-11.43)
[2024-09-19 05:19] LABS: Anion Gap 15.3 (5-19); Blood Urea Nitrogen 11 mg/dL (6-20); Calcium 8.9 mg/dL (8.5-10.5); Carbon Dioxide 26 mmol/L (22-29); Chloride 103 mmol/L (98-107); Creatine Phosphokinase 35 U/L (39-308); Creatinine Clr Calc Pharmacy 250.1339; Glomerular Filtration Rate 188.1 mL/min (90-130); Glucose 108 mg/dL (65-115); Osmolality Calculated 290 mOsm/kg (285-295); Potassium 4.3 mmol/L (3.5-5.1); Sodium 140 mmol/L (136-145)
[2024-09-19] MEDS: MEROPENEM 2,000 MG in sodium chloride 0.9% (plus) 50 ML 100 MG IV ×3 (06:13→22:35)
[2024-09-19 06:45] LABS: Glucose Point of Care 137 mg/dL (70-110)
[2024-09-19] MEDS: metoprolol succinate ER (24 HR) 25 mg Tablet PO (08:11)
[2024-09-19] MEDS: insulin lispro 100 unit/1 mL SUBCUT ×3 (08:11→20:47)
[2024-09-19] MEDS: aspirin 81 mg EC Tablet PO (08:11)
[2024-09-19] MEDS: mupirocin oint 22 gm 1 APPLIC TOPICAL ×3 (09:47→20:47)
[2024-09-19 10:58] LABS: Glucose Point of Care 146 mg/dL (70-110)
[2024-09-19] MEDS: pantoprazole 40 mg SDV IVP (14:45)
[2024-09-19] MEDS: enoxaparin 40 mg/0.4 mL Syringe SUBCUT (14:46)
[2024-09-19] MEDS: DAPTOmycin 500 MG SDV 800 MG IVP (15:33)
[2024-09-19 16:38] LABS: Glucose Point of Care 173 mg/dL (70-110)
--- NOTE | 2024-09-19 17:09 | P.PN_ITS ---
Subjective 2 Subjective: Patient was seen this morning, denies any fevers, no chills Vitals/I&O/Wt Last Vital Signs Temp 98.4 F 09/19/24 16:11 Pulse 96 09/19/24 16:11 Resp 19 H 09/19/24 16:11 BP 105/73 09/19/24 16:11 Pulse Ox 99 09/19/24 16:11 O2 Del Method Room Air 09/19/24 16:11 09/19/24 09/19/24 09/19/24 06:59 14:59 22:59 Intake Total 50 / 870 650 / 650 50 / 700 Balance 50 / 870 650 / 650 50 / 700 Weight last 48 hrs Weight 100.834 kg Weight 100.062 kg Physical Exam 2 Const: COMMON NORMALS: no acute distress and patient oriented x3 Resp: COMMON NORMALS: normal respiratory effort, No retractions, No use of accessory muscles and clear to auscultation bilaterally AUSCULTATION: clear to auscultation bilaterally Cardio: COMMON NORMALS: regular rate, regular rhythm, S1 normal heart sound present and S2 normal heart sound present RATE: regular rate RHYTHM: r egular rhythm HEART SOUNDS: S1 normal heart sound present and S2 normal heart sound present GI: COMMON NORMALS: Normal to inspection, nondistended, normoactive bowel sounds present and non-tender Extremity: COMMON NORMALS: no pedal edema NARRATIVE EXTREMITY EXAM: Surgical site wrapped Neuro: COMMON NORMALS: patient oriented x3 Psych: COMMON NORMALS: mental status grossly normal Data 09/19/24 04:08 09/19/24 04:08 Micro: Microbiology 09/14/24 16:40 Blood Culture - Final Blood NO GROWTH AFTER 5 DAYS 09/14/24 16:36 Blood Culture - Final Blood NO GROWTH AFTER 5 DAYS A&P Assessment and plan (1) Cellulitis of left foot: (2) Abscess: (3) Osteomyelitis: (4) Sepsis: Plan Left foot cellulitis, diabetic foot infection - With underlying abscess - With osteomyelitis MRI left foot MR/MR foot LT wo/w con [id number] IMPRESSION: Findings of osteomyelitis of the 1st metatarsal and mid to distal 2nd metatarsal and 2nd proximal phalanx with large abscess extending from post surgical site to the 2nd/3rd metatarsals dorsally. Diffuse muscular edema suggestive of myositis. Arterial [place] US/[place] [id number] IMPRESSION: 1. CARMEN 1.18 on the right and 1.1 on the left. 2. Multiphasic waveforms throughout the right leg. 3. Multiphasic waveforms at and above the knee of the left leg, with monophasic waveforms within the posterior tibial and dorsalis pedis arteries [id number] suggesting small-vessel disease. 4. No significant stenosis or occlusion is seen. -Patient is status post transmetatarsal amputation left foot, plans on delayed wound closure Plan - Will admit to medical floors - Blood cultures so far no growth - Follow surgical cultures so far no growth - Continue daptomycin 800 mg IV every 24 hours - Meropenem 2 g IV every 8 hours for Pseudomonas coverage - Diabetic diet - N.p.o. plan on possible surgical management Friday - Full code - Lovenox for DVT prophylaxis Type 2 diabetes mellitus - Lantus 30 units at bedtime - Monitor with 5 units 3 times daily Humalog History of SVT, monitor Plan for today IV antibiotics, surgical intervention possibly on Friday PDMP PDMP Reviewed: Not Reviewed Attestations 2 Medical Necessity Statement*: Patient requires hospitalization for left foot cellulitis, diabetic foot infection with underlying abscess, osteomyelitis going for delayed wound closure tomorrow Diagnoses Cellulitis of left foot L03.116 Abscess L02.91 Osteomyelitis M86.9 Sepsis A41.9
--- NOTE | 2024-09-19 19:06 | P.PN_ITS ---
Subjective 2 Subjective: Patient seen bedside this a.m., father and mother are present. He is anticipating delayed closure tomorrow. Vitals/I&O/Wt Last Vital Signs Temp 98.4 F 09/19/24 16:11 Pulse 93 09/19/24 16:22 Resp 19 H 09/19/24 16:11 BP 105/73 09/19/24 16:11 Pulse Ox 99 09/19/24 16:11 O2 Del Method Room Air 09/19/24 16:11 09/19/24 09/19/24 09/19/24 06:59 14:59 22:59 Intake Total 50 / 870 650 / 650 530 / 1180 Balance 50 / 870 650 / 650 530 / 1180 Weight last 48 hrs Weight 222 lb 4.8 oz Weight 220 lb 9.6 oz Physical Exam 2 Narrative: GENERAL: Patient is alert and oriented ?3 and in no acute distress. The following is a focused bilateral lower extremity exam. VASCULAR: Dorsalis pedis palpable bilaterally. Posterior tibial arteries palpable. Capillary refill time less than 3 seconds right hallux. Calf is supple and nontender proximally and distally. Mild edema left forefoot. NEUROLOGICAL: Protective sensation diminished to light touch. DERMATOLOGICAL: Dorsal skin flap at amputation site of left transmetatarsal amputation has a area centrally and distally that is dusky and questionable in appearance area of concern has expanded measuring 2 cm x 1 cm dorsal flap, overall erythema is improving, plantar flap is viable. No active bleeding from the left foot, no purulence from the left foot. Right great toe is well-healing has a wound limited to breakdown of skin at this point. MUSCULOSKELETAL: Status post left transmetatarsal amputation. Data 09/19/24 04:08 09/19/24 04:08 Micro: Microbiology 09/14/24 16:40 Blood Culture - Final Blood NO GROWTH AFTER 5 DAYS 09/14/24 16:36 Blood Culture - Final Blood NO GROWTH AFTER 5 DAYS A&P Assessment and plan (1) Osteomyelitis of foot, left, acute: (2) Abscess of left foot: (3) Diabetic peripheral neuropathy associated with type 2 diabetes mellitus: Plan 34 year old male presents with a worsening of wound to the left foot is with history of gangrene of the left great toe and underwent partial first ray resection of the left foot with delayed closure. Performed on 08/26/2024 bone culture intraoperatively significant for strep group G and strep group B, patient placed on PICC line with IV antibiotic course for minimum of 6 weeks, was noticed to have worsening of left foot consistent with abscess with MRI showing osteomyelitis of the first metatarsal and second metatarsal. - Status post left transmetatarsal amputation 09/15/2024 left open for possible delayed closure. - Will monitor daily for clinical improvement of the amputation site soft tissue flaps, tentatively scheduled for debridement and closure on Friday, September 20, not amenable to closure today. At this point dorsal skin flap has a area at 12 o'clock position that is becoming necrotic, questionable if there is enough soft tissue for closure will continue to monitor and allow soft tissue to demarcate. - Nonweightbearing left foot - Continuing empiric of antibiotics. Additional operative cultures taken yesterday pending Necrosis of dorsal flap, requires further debridement and attempted delayed closure tomorrow scheduled at noon 09/20/2024, will explant cement antibiotic spacer, possible skin graft should there be a deficit. N.p.o. at midnight. PDMP PDMP Reviewed: Not Reviewed Attestations 2 Medical Necessity Statement*: Requires further debridement and delayed closure left foot amputation site secondary to infection Coding Level of Care Code Acute Code for [facility] Fwd Diagnoses Osteomyelitis of foot, left, acute M86.172 Abscess of left foot L02.612 Diabetic peripheral neuropathy associated with type 2 diabetes mellitus E11.42
[2024-09-19] MEDS: HYDROcodone-acetaminophen 7.5-325 mg Tablet 1 TAB PO (19:22)
[2024-09-19 20:33] LABS: Glucose Point of Care 205 mg/dL (70-110)
[2024-09-19] MEDS: morphine 4 mg/mL SDV 1 mL 2 MG IVP (20:46)
[2024-09-19] MEDS: atorvastatin 40 mg Tablet PO (20:46)
[2024-09-19] MEDS: insulin glargine 100 units/1 mL 30 UNIT SUBCUT (20:47)
[2024-09-20] VITALS (22 sets, daily range): BP systolic 80–130; BP diastolic 56–92; PULSE 73–95; RESP 16–19; TEMP 36.1–37.4; O2SAT 93–99
[2024-09-20 05:24] LABS: Basophils # 0.1 10^3/uL (0.0-0.1); Basophils % 0.9 %; Eosinophils # 0.4 10^3/uL (0.0-0.8); Eosinophils % 6.2 %; Hematocrit 33.3 % (37-53); Lymphocytes # 2.3 10^3/uL (0.8-4.8); Lymphocytes % 35.7 %; Mean Corpuscular HGB Conc 31.2 g/dL (30-55); Mean Corpuscular Hemoglobin 26.9 pg (27-33); Mean Platelet Volume 9.1 fL (7.4-10.4); Monocytes # 0.5 10^3/uL (0.2-0.9); Monocytes % 7.4 %; Neutrophils % 49.5 %; Nucleated Red Blood Cells % 0 %; Platelet Count 332 10^3/cmm (157-399); Red Blood Count 3.87 10^6/uL (3.85-5.65); Red Cell Distribution Width 12.1 % (12.1-15.1); White Blood Count 6.47 10^3/uL (3.29-11.43)
[2024-09-20 05:38] LABS: Anion Gap 15.2 (5-19); Blood Urea Nitrogen 12 mg/dL (6-20); Calcium 9.1 mg/dL (8.5-10.5); Carbon Dioxide 26 mmol/L (22-29); Chloride 99 mmol/L (98-107); Creatinine Clr Calc Pharmacy 247.9325; Glomerular Filtration Rate 188.1 mL/min (90-130); Glucose 130 mg/dL (65-115); Osmolality Calculated 284 mOsm/kg (285-295); Potassium 4.2 mmol/L (3.5-5.1); Sodium 136 mmol/L (136-145)
[2024-09-20] MEDS: MEROPENEM 2,000 MG in sodium chloride 0.9% (plus) 50 ML 100 MG IV ×3 (06:29→23:32)
[2024-09-20 06:43] LABS: Glucose Point of Care 189 mg/dL (70-110)
[2024-09-20] MEDS: metoprolol succinate ER (24 HR) 25 mg Tablet PO (08:49)
[2024-09-20] MEDS: mupirocin oint 22 gm 1 APPLIC TOPICAL ×3 (08:50→21:15)
[2024-09-20 10:56] LABS: Glucose Point of Care 150 mg/dL (70-110)
--- NOTE | 2024-09-20 11:38 | W.PM.OPSUD ---
Surgery/Procedure H&P Update DATE OF PROCEDURE: September 20, 2024 DATE H&P PERFORMED: 09/14/24 H&P UPDATE INFORMATION: I have reviewed H&P completed within last 30 days, I have examined patient prior to procedure, No changes to prior documentation and Risks and benefits of the procedure reviewed PREOP DIAGNOSIS: Osteomyelitis left foot. PLANNED PROCEDURE: Operation Date: 09/15/24 12:00 Proposed Procedures p Incision And Drainage-Abscess Left Foot(Left) - Saturnino Person DPM Operation Date: 09/20/24 12:00 Proposed Procedures p Delayed Wound Closure(Left) - Saturnino Person DPM
[2024-09-20 11:39] LABS: Glucose Point of Care 137 mg/dL (70-110)
--- NOTE | 2024-09-20 11:45 | ANES.PREANE2 ---
Pre-Anesthetic Assessment Height/Weight: Height 1.83 m Weight 98.157 kg Temp Pulse Resp BP Pulse Ox O2 Del Method 97.7 F 93 19 H 115/78 97 Room Air 09/20/24 10:57 09/20/24 10:57 09/20/24 10:57 09/20/24 10:57 09/20/24 10:57 09/20/24 11:17 Preop Diagnosis: Osteomyelitis left foot. Operation Date: 09/15/24 12:00 Proposed Procedures p Incision And Drainage-Abscess Left Foot(Left) - Saturnino Person DPM Operation Date: 09/20/24 12:00 Proposed Procedures p Delayed Wound Closure(Left) - Saturnino Person DPM Familial anesthetic complications: None Was Beta Senia taken within 24 hours: N/A Was Clonidine taken within 24 hours: N/A Last intake: Intake Last Liquid Date 09/19/24 Last Liquid Time 20:00 Last Solid Date 09/19/24 Last Solid Time 19:00 Social No alcohol and No tobacco Exam alert, oriented x 3, clear to auscultation bilaterally and regular rate & rhythm Airway Mallampati: Class II Dentition: full Metabolic Diabetes Mellitus Anesthetic Plan ASA status: 3 Anesthesia: General Risk of > 500 ml blood loss (7ml/kg in children): No Medications/Allergies Home Medications ?Medication ?Instructions ?Recorded ?Confirmed ?Last Taken ?Type insulin lispro 100 unit/mL 5 unit (0.05 mL) SUBCUT TID #15 mL 08/25/24 09/15/24 09/14/24 Rx subcutaneous pen (Humalog KwikPen (U-100) Insulin) pen needle, diabetic 29 gauge x #100 ea 08/25/24 09/15/24 Unknown Rx 1/2 (Ultra-Thin II Insulin Pen Richardson) blood-glucose meter (Glucocard 01 #1 ea 08/26/24 09/15/24 Unknown Rx Meter kit) daptomycin 500 mg intravenous 800 mg IVP Q24H #0 ea 08/27/24 09/15/24 Unknown Rx solution insulin glargine 100 unit/mL 30 unit (0.3 mL) SUBCUT BEDTIME 30 08/27/24 09/15/24 09/13/24 Rx subcutaneous solution (Lantus days #30 mL U-100 Insulin) metoprolol succinate 25 mg capsule 25 mg PO DAILY #30 ea 08/27/24 09/15/24 09/14/24 Rx sprinkle, ext. release 24 hr mupirocin 2 % topical ointment 1 applic topical TID #15 grams 08/27/24 09/15/24 09/14/24 Rx (Centany) Wheelchair with elevated leg rest #1 ea 09/01/24 09/15/24 Unknown Rx to left blood-glucose sensor (Dexcom G7 #9 ea 09/09/24 09/15/24 Unknown Rx Sensor device) blood-glucose,assisted living coordinator,cont #1 ea 09/09/24 09/15/24 Unknown Rx (Dexcom G7 Bread Racker) hydrocodone 7.5 mg-acetaminophen 1 tab PO Q8H PRN Pain 09/15/24 09/15/24 Unknown History 325 mg tablet Allergies Allergy/AdvReac Type Severity Reaction Status Date / Time No Known Allergies Allergy Verified 09/14/24 12:45 Current Medications Generic Name Dose Route Start Last Admin Trade Name Freq PRN Reason Stop Dose Admin Hydrocodone Bitart/Acetaminophen 1 tab 09/15/24 14:07 09/19/24 19:22 Hydrocodone-Acetaminophen 7.5-325 Mg Tablet PO 1 tab On Hold: 09/20/24 11:41 Q8H PRN Administration Comment: Order held by Process PAIN Transfer Aspirin 81 mg 09/16/24 16:35 09/19/24 08:11 Aspirin 81 Mg Ec Tablet PO 81 mg On Hold: 09/20/24 11:41 DAILY KIMBERLY Administration Comment: Order held by Process Transfer Atorvastatin Calcium 40 mg 09/16/24 21:00 09/19/24 20:46 Atorvastatin 40 Mg Tablet PO 40 mg On Hold: 09/20/24 11:41 BEDTIME KIMBERLY Administration Comment: Order held by Process Transfer Daptomycin 800 mg 09/15/24 15:00 09/19/24 15:33 Daptomycin 500 Mg Sdv IVP 800 mg On Hold: 09/20/24 11:41 Q24H KIMBERLY Administration Comment: Order held by Process Protocol Transfer Enoxaparin Sodium 40 mg 09/14/24 14:45 09/19/24 14:46 Enoxaparin 40 Mg/0.4 Ml Syringe SUBCUT 40 mg On Hold: 09/20/24 11:41 Q24H KIMBERLY Administration Comment: Order held by Process Transfer Meropenem 2,000 mg/ Sodium 50 mls @ 100 mls/hr 09/16/24 15:00 09/20/24 07:39 Chloride IV Infused On Hold: 09/20/24 11:41 Q8H KIMBERLY Infusion Comment: Order held by Process Transfer Insulin Glargine 30 unit 09/15/24 21:00 09/19/24 20:47 Insulin Glargine 100 Units/1 Ml SUBCUT 30 unit On Hold: 09/20/24 11:41 BEDTIME KIMBERLY Administration Comment: Order held by Process Transfer Insulin Human Lispro 5 unit 09/15/24 15:00 09/20/24 08:50 Insulin Lispro 100 Unit/1 Ml SUBCUT Not Given On Hold: 09/20/24 11:41 TID KIMBERLY Comment: Order held by Process Transfer Metoprolol Succinate 25 mg 09/16/24 09:00 09/20/24 08:49 Metoprolol Succinate Er (24 Hr) 25 Mg Tablet PO 25 mg On Hold: 09/20/24 11:41 DAILY KIMBERLY Administration Comment: Order held by Process Transfer Morphine Sulfate 2 mg 09/19/24 20:31 09/19/24 20:46 Morphine 4 Mg/Ml Sdv 1 Ml IVP 2 mg On Hold: 09/20/24 11:41 Q3H PRN Administration Comment: Order held by Process SEVERE PAIN Transfer Mupirocin 1 applic 09/15/24 15:00 09/20/24 08:50 Mupirocin Oint 22 Gm TOPICAL 1 applic On Hold: 09/20/24 11:41 TID KIMBERLY Administration Comment: Order held by Process Transfer Pantoprazole Sodium 40 mg 09/14/24 15:00 09/19/24 14:45 Pantoprazole 40 Mg Sdv IVP 40 mg On Hold: 09/20/24 11:41 Q24H KIMBERLY Administration Comment: Order held by Process Transfer [facility] Anesthesia Medical History Diabetes mellitus Surgical History History of nasal surgery at age 3 due to being hit by a baseball. History of incision and drainage of his posterior neck due to a spider bite in 2019 Family History Father Diabetes mellitus, type 2 Hypertension Atrial fibrillation Family/Other Stroke uncle- maternal Denies family history of Diabetes Heart disease Chronic kidney disease (CKD) Cancer Thyroid disease Social History Smoking and tobacco/nicotine status: never used tobacco/nicotine Alcohol intake: never Substance/Drug Use: former Date of last use: 2021 Former substance use details: last tried an edible in 2021 Data Anesthesia 09/20/24 04:51 09/20/24 04:51 Short CBC 09/19/24 09/20/24 Range/Units 04:08 04:51 WBC 7.35 6.47 (3.29-11.43) 10^3/uL Hgb 10.30 L 10.40 L (11.27-16.99) g/dL Hct 32.5 L 33.3 L (37-53) % MCV 85.5 86.0 (82-101) fl Plt Count 310 332 (157-399) 10^3/cmm Neut % (Auto) 55.2 49.5 % Neut # (Auto) 4.06 3.20 (1.8-7.7) 10^3/uL BMP 09/19/24 09/20/24 04:08 04:51 Sodium 140 136 Potassium 4.3 4.2 Chloride 103 99 Carbon Dioxide 26 26 BUN 11 12 Creatinine 0.5 L 0.5 L Glucose 108 130 H Calcium 8.9 9.1 Cardiac Enzymes 09/19/24 Range/Units 04:08 Creatine Kinase 35 L (39-308) U/L Microbiology 09/15/24 13:04 Mycobacterial Smear - Preliminary Skin - Toe 09/15/24 13:04 Fungal Smear - Preliminary Other Source 09/14/24 16:40 Blood Culture - Final Blood NO GROWTH AFTER 5 DAYS 09/14/24 16:36 Blood Culture - Final Blood NO GROWTH AFTER 5 DAYS Cardiac Studies: Echocardiogram 08/25/24 Cardiac Event Monitor 08/27/24
[2024-09-20] MEDS: sodium chloride 0.9% 1,000 ML 30 ML IV (11:53)
[2024-09-20] MEDS: lidocaine 1% 10 ML INJ 15 ML XX (12:01)
[2024-09-20] MEDS: BUPivacaine 0.5% INJ 30 mL 15 ML INJECTION (12:01)
[2024-09-20 12:54] LABS: Glucose Point of Care 136 mg/dL (70-110)
--- NOTE | 2024-09-20 12:54 | W.PM.BPON ---
Date of Procedure: 06/13/23 Surgeon: Saturnino Person DPM [employer] Specialist(s): Agustín Procedure(s) performed: Delayed closure left foot. Findings of the procedure(s): After debridement clean margins at amputation site left foot. Estimated blood loss: 20 mL Specimen(s) removed: None Post-operative diagnosis: Left transmetatarsal amputation secondary to acute osteomyelitis
--- NOTE | 2024-09-20 12:57 | P.OP_ITS ---
Operative Report Date of procedure: September 20, 2024 Pre-op diagnosis: Status post left transmetatarsal amputation Diabetes with neuropathy Acute osteomyelitis left foot Abscess left foot Cellulitis left foot Post-op diagnosis: Status post left transmetatarsal amputation Diabetes with neuropathy Acute osteomyelitis left foot Abscess left foot Cellulitis left foot Post-op findings: Clean margins Procedure done: Secondary closure left transmetatarsal amputation site. CPT code 97341 Implants: 2-0 Vicryl, 3-0 Vicryl, 3-0 nylon Specimens removed/disposition: None Pathology: None Surgeon: Saturnino Person DPM [employer] Supervisor: Agustín Estimated blood loss: 20 39 IV fluids: See intraoperative documentation as Urine output: None Complications: none Brief History: Patient is a 34-year-old diabetic male presents for secondary closure of the left foot amputation site, patient required transmetatarsal potation with history of osteomyelitis of the left great toe, first metatarsal and second metatarsal cellulitis and abscess, initial amputation was performed and staged out for further debridement and possible delayed closure due to the extent of soft tissue cellulitis and abscess and nonviable skin flap. I reviewed at length with the patient, the risks, potential complications, benefits, alternatives, expectations, and typical outcomes associated with the surgery. The risks and potential complications were explained in detail, including but not limited to infection, wound dehiscence or soft tissue complications, bleeding and hematoma, chronic edema, neuritis or nerve damage producing numbness or chronic pain, CRPS, failure to relieve pain or worsening pain, thick / painful / unsightly scar, limited motion / stiffness, malposition, delayed union, malunion, or nonunion, fracture, reaction to implants, anesthetic compli cations, venous thromboembolism, and deformity recurrence. I discussed the notion of no regrets with the patient as it pertains to complications and outcomes. The patient seemed to understand the nature of the proposed care and required convalescence. They asked appropriate questions, answered to their satisfaction. They are aware no guarantees can be made as to a satisfactory outcome and they understand there may be other possible unforeseen complications or outcomes not listed here that will be treated accordingly if they arise. There were no written or implied guarantees given to the patient. They gave informed consent to proceed. Procedure: Under mild sedation patient was brought to the operating room and remained on the gurney in supine position. A timeout was performed. Anesthesia was administered by the anesthesia service. Local anesthesia injected by myself consisting of 30 cc of one-to-one mixture 1% lidocaine and 0.5% Marcaine plain in a left 5 point ankle block fashion. Well-padded pneumatic tourniquet applied to the left high calf. Left lower extremity was scrubbed, prepped and draped utilizing normal aseptic technique. Left foot was elevated and tourniquet inflated to 250 mmHg. Retention sutures were removed at left transmetatarsal amputation site, Simplex P antibiotic spacer with tobramycin was explanted and passed from the operative field. Nonviable leading edge of the dorsal flap was debrided full-thickness with pickups, #10 blade as well as curved Baldwin scissors, further debridement of epidermis, dermis, subcutaneous tissue, myofascial layer and tendons both dorsally and plantarly of the left soft tissue flaps. The incision was irrigated with copious clarita of sterile saline solution. All bleeders were ligated and cauterized as necessary. Patient had adequate plantar flap, given the amount of debridement of devitalized skin the dorsal flap was much smaller, this created a an accordion type closure with dogear, surgical decision was made to bring dorsal and plantar flaps together without tension or redundancy from lateral to medial and a dogear encountered medially was incised and remodeled, myofascial layer was reapproximated with 2-0 Vicryl, subcutaneous tissue with 3- 0 Vicryl and skin with 3-0 nylon with skin margins well coapted without excessive tension or redundancy. Quarter inch Vinicius drain inserted at the most medial aspect of the closure site medial aspect left foot. The incision was then dressed with Xeroform, sterile 4 x 4 gauze, Kerlix Coban and stockinette. Tourniquet was deflated and a prompt hyperemic response is noted to the distal amputation site left foot. Patient tolerated the procedure and anesthesia well and was transferred to the PACU with vital signs stable and vascular status intact. Planning on monitoring overnight and discharge planning tomorrow.
--- NOTE | 2024-09-20 13:30 | ANE.PACU2 ---
Inpatient post-anesthesia follow up: Airway intact: Yes Vital signs: Temperature 97.0 F Pulse Rate 75 Respiratory Rate 16 Blood Pressure 119/86 Pulse Oximetry 96 Oxygen Delivery Me thod Room Air Oxygen Flow Rate 8 Fraction of Inspir ed Oxygen Hydration adequate: Yes Nausea and vomiting: No Pain level: 1 Mental status: Baseline
--- NOTE | 2024-09-20 14:46 | PM.PN ---
Subjective Subjective: Infectious disease progress note Patient is status post left transmetatarsal amputation secondary to acute osteomyelitis on September 15, 2024. Status post delayed primary closure today. Afebrile, hemodynamically stable, no leukocytosis. Medications: Reviewed: Yes Vitals/I&O/Wt Last Vital Signs Temp 97.4 F L 09/20/24 13:45 Pulse 79 09/20/24 13:45 Resp 18 09/20/24 13:45 BP 105/71 09/20/24 13:45 Pulse Ox 95 09/20/24 13:45 O2 Del Method Room Air 09/20/24 13:45 O2 Flow Rate 8 09/20/24 12:52 09/19/24 09/20/24 09/20/24 22:59 06:59 14:59 Intake Total 1130 / 1780 50 / 1830 106.5 / 106.5 Output Total Balance 1130 / 1780 50 / 1830 86.5 / 86.5 Weight last 48 hrs Weight 98.157 kg Weight 100.834 kg Physical Exam Narrative: General: No acute distress, AO x3 HEENT: PERRLA, pupils bilaterally equal and reactive, pallors not present Neuro: No focal deficits, no facial deformity, AO x3, power 5/5 in all limbs Extremities: surgical dressing present on the right foot Data 09/20/24 04:51 09/20/24 04:51 Micro: Microbiology 09/15/24 13:04 Mycobacterial Smear - Preliminary Skin - Toe 09/15/24 13:04 Fungal Smear - Preliminary Other Source 09/14/24 16:40 Blood Culture - Final Blood NO GROWTH AFTER 5 DAYS 09/14/24 16:36 Blood Culture - Final Blood NO GROWTH AFTER 5 DAYS NAME: Luther Abdullahi LOC: [facility] U #: [id number] AGE/SX: 34/M ROOM: 272 RE09/14/[address]: Jax Matos MD : 1990 BED: 1 DIS: FAX #: STATUS: ADM IN TLOC: Spec #: [id number] Amina: 09/15/24-1304 Status: RES Req #: [id number] Recd: 09/17/24-[address]: Milagros Pratt MD Src: Skin SpDesc: Toe Ordered: Mycobac w/Cult Comments: Comment tissue from foot Physician Instructions from OR cx on 09/15 Procedure Result Verified Site Mycobacterial Smear Preliminary 09/20/24-0845 QD SEE NOTE MYCOBACTERIA, CULTURE, WITH FLUOROCHROME SMEAR Micro Number: [id number] Test Status: Preliminary Specimen Source: Or tissue left foot 09/15 Specimen Quality: Adequate Smear: No acid-fast bacilli seen using the fluorochrome method. Result: Culture results to follow. Final reports of negative cultures can be expected in approximately six weeks. Positive cultures are reported immediately. THIS TEST WAS PERFORMED AT: [facility] [address] [place] [address] AROLDO EDWARD MD NAME: Luthre Abdullahi LOC: [facility] U #: [id number] AGE/SX: 34/M ROOM: [facility] RE09/14/[address]: Jax Matos MD : 1990 BED: 1 DIS: FAX #: STATUS: ADM IN TLOC: Spec #: [id number] Amina: 09/15/24 Status: COMP Req #: [id number] Recd: 09/15/[address]: Saturnino Person DPM Src: Bone SpDesc: Ordered: Tissue Cult GS Comments: Comment left forefoot Procedure Result Verified Site Gram Stain Final 09/16/24-1103 Result FEW WHITE BLOOD CELLS NO ORGANISMS SEEN Tissue Culture Final 09/18/24-1139 NO GROWTH ON DAY 3 Tissue Culture Preliminary (changed) 09/17/24-1627 NO GROWTH ON DAY 2 Tissue Culture Preliminary (changed) 09/16/24-1538 NO GROWTH AFTER 1 DAY NAME: Luther Abdullahi LOC: [facility] U #: [id number] AGE/SX: 34/M ROOM: 272 RE09/14/[address]: Jax Matos MD : 1990 BED: 1 DIS: FAX #: STATUS: ADM IN TLOC: Spec #: [id number] Amina: 09/15/24 Status: RES Req #: [id number] Recd: 09/17/24-[address]: Milagros Pratt MD Src: Other Sour SpDesc: Ordered: Cult. Fungus Comments: Physician Instructions on OR specimen from 09/15 Procedure Result Verified Site Smear Preliminary 09/20/24-0844 QD SEE NOTE CULTURE, FUNGUS W/SMEAR NOT HAIR, SKIN, BLOOD Micro Number: [id number] Test Status: Preliminary Specimen Source: Tissue, lt fore foot Specimen Quality: Adequate Smear: No fungal elements seen. Result: No fungi isolated to date. Culture is examined weekly for a total of 28 days incubation. A change in status will result in an updated culture report. THIS TEST WAS PERFORMED AT: [facility] [id number] [place] [id number] AROLDO EDWARD MD NAME: KaylenSantiagoLuthermaya Dixon LOC: [facility] U #: [id number] AGE/SX: 34/M ROOM: 272 RE09/14/[address]: Jax Matos MD : 1990 BED: 1 DIS: FAX #: STATUS: ADM IN TLOC: Spec #: [id number] Amina: 09/14/24 Status: COMP Req #: [id number] Recd: 09/14/[address]: Jax Matos MD Src: Blood SpDesc: Ordered: Bcult Procedure Result Verified Site Blood Culture Final 09/19/24 NO GROWTH AFTER 5 DAYS Blood Culture Preliminary (changed) 09/15/24 NEGATIVE TO DATE Blood Culture Preliminary (changed) 09/14/24-1651 SPECIMEN COLLECTED SHAINA: Luther Abdullahi LOC: [facility] U #: [id number] AGE/SX: 34/M ROOM: 272 RE09/14/[address]: Jax Matos MD : 1990 BED: 1 DIS: FAX #: STATUS: ADM IN TLOC: Spec #: [id number] Amina: 09/14/24163 Status: COMP Req #: [id number] Recd: 09/14/[address]: Jax Matos MD Src: Blood SpDesc: Ordered: Bcult Procedure Result Verified Site Blood Culture Final 09/19/24-1645 NO GROWTH AFTER 5 DAYS Blood Culture Preliminary (changed) 09/15/24 NEGATIVE TO DATE Blood Culture Preliminary (changed) 09/14/24 SPECIMEN COLLECTED NAME: Luther Abdullahi LOC: [facility] U #: [id number] AGE/SX: 34/M ROOM: RE09/14/[address]: Milagros Pratt MD : 1990 BED: DIS: FAX #: STATUS: DEP AMB TLOC: Spec #: [id number] Amina: 09/14/24 Status: COMP Req #: [id number] Recd: 09/14/[address]: Milagros Pratt MD Src: Incision SpDesc: Ordered: WC and GS Procedure Result Verified Site Gram Stain Final 09/15/24-1624 Result RARE GRAM POSITIVE RODS RARE GRAM POSITIVE COCCI IN PAIRS RARE WHITE BLOOD CELLS Wound Culture Final 09/17/24-1618 RARE DIPHTHEROIDS FROM BROTH ONLY ON DAY 3 Wound Culture Preliminary (changed) 09/16/24 <5,000 COLS/ML NORMAL SKIN REMI ON DAY 2 Wound Culture Preliminary (changed) 09/15/24-1730 NO GROWTH AFTER 1 DAY NAME: Luther Abdullahi LOC: [facility] U #: [id number] AGE/SX: 34/M ROOM: RE09/14/[address]: Milagros Pratt MD : 1990 BED: DIS: FAX #: STATUS: DEP AMB TLOC: Spec #: [id number] Amina: 09/14/24 Status: RES Req #: [id number] Recd: 09/14/[address]: Milagros Pratt MD Src: Lesion/Ves SpDesc: Ordered: Mycobac w/Cult Procedure Result Verified Site Mycobacterial Smear Preliminary 09/16/24-1825 QD SEE NOTE MYCOBACTERIA, CULTURE, WITH FLUOROCHROME SMEAR Micro Number: [id number] Test Status: Preliminary Specimen Source: Wound Specimen Quality: Adequate Smear: No acid-fast bacilli seen using the fluorochrome method. Result: Culture results to follow. Final reports of negative cultures can be expected in approximately six weeks. Positive cultures are reported immediately. THIS TEST WAS PERFORMED AT: [facility] [address] [place] [address] AROLDO EDWARD MD NAME: Luther Abdullahi LOC: [facility] U #: [id number] AGE/SX: 34/M ROOM: 259 RE08/22/[address]: Milagros Pratt MD : 1990 BED: 2 DIS: 08/27/24 FAX #: STATUS: DIS IN TLOC: Spec #: [id number] Amina: 08/23/24 Status: COMP Req #: [id number] Recd: 08/23/[address]: Saturnino Person DPM Src: Velvet SpDesc: #1 Ordered: Tissue Cult GS Procedure Result Verified Site Gram Stain Final 08/23/24-1234 Result SCANT GRAM NEGATIVE COCCI SCANT GRAM NEGATIVE RODS RARE GRAM POSITIVE RODS FEW GRAM POSITIVE COCCI IN PAIRS SCANT POLYMORPHONUCLEAR NEUTROPHILS Tissue Culture Final 08/27/24-1350 Organism 1 Strep agalactiae - (group b)#2 Growth HEAVY Strep Typing Strep Typing FEW MIXED SUPERFICIAL REMI ON DAY 4 S aga(gr b#2 M.I.C. RX --------- ------ * Ampicillin 0.12 S * Cefepime <=0.25 S * Ceftriaxone <=0.25 S * Clindamycin >0.5 R * Erythromycin >0.5 R * Levofloxacin 0.5 S * Penicillin 0.06 S * Tetracycline >4 R Vancomycin 0.5 S Tissue Culture Preliminary (changed) 08/26/24-1553 Organism 1 Strep agalactiae - (group b)#2 Growth HEAVY Strep Typing Strep Typing DAY 3 S aga(gr b#2 M.I.C. RX --------- ------ * Ampicillin 0.12 S * Cefepime <=0.25 S * Ceftriaxone <=0.25 S * Clindamycin >0.5 R * Erythromycin >0.5 R * Levofloxacin 0.5 S * Penicillin 0.06 S * Tetracycline >4 R Vancomycin 0.5 S Tissue Culture Preliminary (changed) 08/25/24-1752 Organism 1 Strep agalactiae - (group b) Growth HEAVY Strep Typing Strep Typing DAY 3, RESULTS TO FOLLOW Tissue Culture Preliminary (changed) 08/25/24-172 DAY 2, RESULTS TO FOLLOW Tissue Culture Preliminary (changed) 08/24/24-0 DAY 1, RESULTS TO FOLLOW Other data: A&P Assessment and plan (1) Osteomyelitis: (2) Cellulitis of left foot: (3) Abscess of left foot: (4) S/P transmetatarsal amputation of foot: Plan 34-year-old male with newly diagnosed diabetes mellitus who was recently admitted to the hospital between August 22, 2024 to August 27, 2024 with left toe gangrene. Patient had been having issues with ingrown toenail infections of his left great toe intermittently over the years. He had traveled overseas to the [facility] right before his infection started to get worse. His toenail was exposed to several water sources including ocean and springs. There was extensive necrosis encountered especially on the plantar aspect of the foot. He underwent amputation of the left great toe on August 23, 2024 with podiatry. This was followed by a delayed primary wound closure on August 26, 2024. Operating room cultures showed group B and group G Streptococcus. Few gram-negative rods were noted on the Gram stain however there was no growth in cultures eventually. Patient was discharged with IV daptomycin and oral ciprofloxacin, both of which he tolerated well. He states he ran out of oral ciprofloxacin a week prior to current admission. He was seen in follow-up in ID clinic on September 14, 2024 where foot showed signs of cellulitis, purulence and fluctuance. He was sent to the hospital for direct admission and is now s/p TMA with podiatry on 09/15/24. CRP trend initially improving down to 12, increased at 70 on September 14. Foot MRI prior to TMA had shown findings of osteomyelitis of the first metatarsal and mid to distal second metatarsal and second proximal phalanx with a large abscess extending from both surgical site to the second third metatarsals dorsally. There was diffuse muscular edema suggestive of myositis. Blood cultures have remained negative to date. Operating room findings in September 15, 2024 consistent with acute osteomyelitis of the left foot including 1st and 2nd metatarsal as well as purulent abscess of the dorsum and plantar left foot. Cultures taken from the operating room from the abscess and the septic foot all remain with no growth to date. Additional cultures including mycobacterial and fungal requested to rule out atypical processes, additionally negative so far. Outpatient cultures taken in the office from draining pus with rare diphtheroids, likely representing skin colonizers. Plan: Continue daptomycin 8 mg/kg IV every 24 hours as he was doing previously Additionally added meropenem 2 gram IV for gram-negative and anaerobic coverage. Though his cultures remain negative from this current admission, given his timeline of worsening after discontinuation of ciprofloxacin, correlating also with the CRP trend(initially improving, then started rising after discontinuation of ciprofloxacin) may indicate an underlying gram-negative or anaerobic infection. Since cultures remain negative would choose to maintain broad antibiotic regimen with meropenem and daptomycin, especially given clinical failure on daptomycin alone. There are currently no signs of vascular compromise Patient is a newly diagnosed uncontrolled diabetic, last A1c at nearly 12, currently has been using insulin with good control of fingersticks. Recommend 6-week course of the above antibiotics Obtain weekly labs including CBC, LFT, creatinine, CRP weekly while on the above antibiotics and faxed to the ID clinic. Follow-up in ID clinic on September 28, 2024 at 2 PM. PDMP PDMP Reviewed: Not Reviewed Attestations Medical Necessity Statement*: per admitting Coding Level of Care Code Acute Code for Chg Fwd High MDM includes number and complexity of problems actively addressed during encounter, amount and/or complexity of data reviewed/ordered and described risk of complication, morbidity or mortality of management as documented Diagnoses Osteomyelitis M86.9 Cellulitis of left foot L03.116 Abscess of left foot L02.612 S/P transmetatarsal amputation of foot Z89.439
[2024-09-20] MEDS: HYDROcodone-acetaminophen 7.5-325 mg Tablet 1 TAB PO ×2 (14:57→23:36)
[2024-09-20] MEDS: pantoprazole 40 mg SDV IVP (14:58)
[2024-09-20] MEDS: DAPTOmycin 500 MG SDV 800 MG IVP (14:59)
[2024-09-20] MEDS: enoxaparin 40 mg/0.4 mL Syringe SUBCUT (15:05)
[2024-09-20] MEDS: morphine 4 mg/mL SDV 1 mL 2 MG IVP ×2 (15:15→19:48)
--- NOTE | 2024-09-20 16:05 | P.PN_ITS ---
Subjective 2 Subjective: Patient was seen this morning, no acute events overnight no fevers, chills, cough Vitals/I&O/Wt Last Vital Signs Temp 97.7 F 09/20/24 15:45 Pulse 83 09/20/24 15:45 Resp 18 09/20/24 15:45 BP 110/70 09/20/24 15:45 Pulse Ox 99 09/20/24 15:45 O2 Del Method Room Air 09/20/24 15:45 O2 Flow Rate 8 09/20/24 12:52 09/20/24 09/20/24 09/20/24 06:59 14:59 22:59 Intake Total 50 / 1830 106.5 / 106.5 50 / 156.5 Output Total / 20 Balance 50 / 1830 86.5 / 86.5 50 / 136.5 Weight last 48 hrs Weight 98.157 kg Weight 100.834 kg Physical Exam 2 Const: COMMON NORMALS: no acute distress and patient oriented x3 Resp: COMMON NORMALS: normal respiratory effort, No retractions, No use of accessory muscles and clear to auscultation bilaterally AUSCULTATION: clear to auscultation bilaterally Cardio: COMMON NORMALS: regular rate, regular rhythm, S1 normal heart sound present and S2 normal heart sound present RATE: regular rate RHYTHM: r egular rhythm HEART SOUNDS: S1 normal heart sound present and S2 normal heart sound present GI: COMMON NORMALS: Normal to inspection, nondistended, normoactive bowel sounds present and non-tender Extremity: COMMON NORMALS: no pedal edema Neuro: COMMON NORMALS: patient oriented x3 Psych: COMMON NORMALS: mental status grossly normal Data 09/20/24 04:51 09/20/24 04:51 Micro: Microbiology 09/15/24 13:04 Mycobacterial Smear - Preliminary Skin - Toe 09/15/24 13:04 Fungal Smear - Preliminary Other Source 09/14/24 16:40 Blood Culture - Final Blood NO GROWTH AFTER 5 DAYS 09/14/24 16:36 Blood Culture - Final Blood NO GROWTH AFTER 5 DAYS A&P Assessment and plan (1) Cellulitis of left foot: (2) Abscess: (3) Osteomyelitis: (4) Sepsis: Plan Left foot cellulitis, diabetic foot infection - With underlying abscess - With osteomyelitis MRI left foot MR/MR foot LT wo/w con [id number] IMPRESSION: Findings of osteomyelitis of the 1st metatarsal and mid to distal 2nd metatarsal and 2nd proximal phalanx with large abscess extending from post surgical site to the 2nd/3rd metatarsals dorsally. Diffuse muscular edema suggestive of myositis. Arterial [place] US/[place] [id number] IMPRESSION: 1. CARMEN 1.18 on the right and 1.1 on the left. 2. Multiphasic waveforms throughout the right leg. 3. Multiphasic waveforms at and above the knee of the left leg, with monophasic waveforms within the posterior tibial and dorsalis pedis arteries [id number] suggesting small-vessel disease. 4. No significant stenosis or occlusion is seen. -Patient is status post transmetatarsal amputation left foot, plans on delayed wound closure Plan - Will admit to medical floors - Blood cultures so far no growth - Follow surgical cultures so far no growth - Continue daptomycin 800 mg IV every 24 hours - Meropenem 2 g IV every 8 hours for Pseudomonas coverage - Diabetic diet - N.p.o. plan on possible surgical management today - Full code - Lovenox for DVT prophylaxis Type 2 diabetes mellitus - Lantus 30 units at bedtime - Monitor with 5 units 3 times daily Humalog History of SVT, monitor Plan for today IV antibiotics, surgical intervention possibly on Friday PDMP PDMP Reviewed: Not Reviewed Attestations 2 Medical Necessity Statement*: Patient requires hospitalization for left foot cellulitis, diabetic foot infection with underlying osteomyelitis, abscess Diagnoses Cellulitis of left foot L03.116 Abscess L02.91 Osteomyelitis M86.9 Sepsis A41.9
[2024-09-20 16:27] LABS: Glucose Point of Care 181 mg/dL (70-110)
[2024-09-20 20:27] LABS: Glucose Point of Care 162 mg/dL (70-110)
[2024-09-20] MEDS: atorvastatin 40 mg Tablet PO (21:14)
[2024-09-20] MEDS: insulin lispro 100 unit/1 mL SUBCUT (21:14)
[2024-09-20] MEDS: insulin glargine 100 units/1 mL 30 UNIT SUBCUT (21:14)
[2024-09-21] VITALS (8 sets, daily range): BP systolic 110–115; BP diastolic 71–77; PULSE 82–95; RESP 16–18; TEMP 36.7–37.4; O2SAT 95–97
[2024-09-21] MEDS: MEROPENEM 2,000 MG in sodium chloride 0.9% (plus) 50 ML 100 MG IV ×2 (06:22→15:23)
[2024-09-21 06:30] LABS: Glucose Point of Care 128 mg/dL (70-110)
--- NOTE | 2024-09-21 06:33 | PC.NURSE ---
PICC line dressing changed
--- NOTE | 2024-09-21 07:16 | P.PN_ITS ---
Subjective 2 Subjective: Patient seen bedside this a.m., tolerating regular diet. Denies any left foot pain. Status post delayed closure left foot. Anticipating discharge home today. Vitals/I&O/Wt Last Vital Signs Temp 98.1 F 09/21/24 03:56 Pulse 87 09/21/24 03:56 Resp 16 09/21/24 03:56 BP 110/71 09/21/24 03:56 Pulse Ox 95 09/21/24 03:56 O2 Del Method Room Air 09/21/24 03:56 O2 Flow Rate 8 09/20/24 12:52 09/20/24 09/21/24 09/21/24 22:59 06:59 14:59 Intake Total 530 / 636.5 50 / 686.5 Balance 530 / 616.5 50 / 666.5 Weight last 48 hrs Weight 216 lb 8 oz Weight 216 lb 6.4 oz Physical Exam 2 Narrative: GENERAL: Patient is alert and oriented ?3 and in no acute distress. The following is a focused bilateral lower extremity exam. VASCULAR: Dorsalis pedis palpable bilaterally. Posterior tibial arteries palpable. Capillary refill time less than 3 seconds right hallux. Calf is supple and nontender proximally and distally. Mild edema left forefoot. NEUROLOGICAL: Protective sensation diminished to light touch. DERMATOLOGICAL: Delayed closure site is stable left foot with sutures intact, no tameka-incisional erythema warmth or drainage. MUSCULOSKELETAL: Status post left transmetatarsal amputation. Data 09/20/24 04:51 09/20/24 04:51 Micro: Microbiology 09/15/24 13:04 Mycobacterial Smear - Preliminary Skin - Toe 09/15/24 13:04 Fungal Smear - Preliminary Other Source A&P Assessment and plan (1) Osteomyelitis of foot, left, acute: (2) Abscess of left foot: (3) Diabetic peripheral neuropathy associated with type 2 diabetes mellitus: Plan 34-year-old diabetic male with abscess, cellulitis and osteomyelitis left foot. - Status post secondary closure left foot amputation site performed successfully 09/20/2024 - Continuing PICC line and IV antibiotics per infectious disease recommendations - No further surgical intervention during this hospitalization. - Nonweightbearing left foot - Follow-up in podiatry clinic this Tuesday, September 24, 2024 at 2:30 PM - Keep current dressing clean, dry and intact until follow-up visit in podiatry clinic this Friday. Discharge planning at this point. PDMP PDMP Reviewed: Not Reviewed Attestations 2 Medical Necessity Statement*: Deferred to primary Coding Level of Care Code Acute Code for Chg Fwd Diagnoses Osteomyelitis of foot, left, acute M86.172 Abscess of left foot L02.612 Diabetic peripheral neuropathy associated with type 2 diabetes mellitus E11.42
[2024-09-21] MEDS: metoprolol succinate ER (24 HR) 25 mg Tablet PO (08:58)
[2024-09-21] MEDS: aspirin 81 mg EC Tablet PO (08:58)
[2024-09-21] MEDS: insulin lispro 100 unit/1 mL SUBCUT ×2 (09:00→15:22)
[2024-09-21] MEDS: mupirocin oint 22 gm 1 APPLIC TOPICAL ×2 (09:01→15:24)
[2024-09-21 10:23] LABS: Glucose Point of Care 93 mg/dL (70-110)
--- NOTE | 2024-09-21 11:44 | PM.DCS ---
Discharge Providers Date of Admission: 09/14/24 13:20 Date of Discharge: September 21, 2024 Attending Provider at Admission: Jax Matos MD Attending Provider at Discharge: Jax Matos MD Primary Care Provider: REYES Dial Diagnoses at Discharge Discharge Diagnosis (1) Osteomyelitis of foot, left, acute: Status: Acute (2) Abscess of left foot: Status: Acute (3) Diabetic peripheral neuropathy associated with type 2 diabetes mellitus: Status: Acute Reason for Visit Reason for Visit: left foot infection failed IV antibiotics Hospital Course Hospital Course Luther Abdullahi is a 34 year old male with a past medical history of diabetes mellitus, history of SVT, history of left foot cellulitis, with left great toe gangrene requiring amputation, currently on IV antibiotics via PICC line, following up with podiatry, patient noticed increased swelling/erythema/drainage from left foot surgical site, had seen infectious disease and podiatry this morning, who recommended patient come to the hospital for IV antibiotics and consideration of further debridement and further workup. Currently he is alert oriented x 3, following all commands, reports that he has been compliant with IV antibiotics, his blood sugars have been in the 120s to 180s range, no chest pain, no shortness of breath Left foot cellulitis, diabetic foot infection - With underlying abscess - With osteomyelitis MRI left foot MR/MR foot LT wo/w con [id number] IMPRESSION: Findings of osteomyelitis of the 1st metatarsal and mid to distal 2nd metatarsal and 2nd proximal phalanx with large abscess extending from post surgical site to the 2nd/3rd metatarsals dorsally. Diffuse muscular edema suggestive of myositis. Arterial ultrasound US/[place] [id number] IMPRESSION: 1. CARMEN 1.18 on the right and 1.1 on the left. 2. Multiphasic waveforms throughout the right leg. 3. Multiphasic waveforms at and above the knee of the left leg, with monophasic waveforms within the posterior tibial and dorsalis pedis arteries [id number] suggesting small-vessel disease. 4. No significant stenosis or occlusion is seen. -Patient is status post transmetatarsal amputation left foot, plans on delayed wound closure - Patient was admitted to [facility] received broad-spectrum antibiotic therapy, overall clinically improved, cultures so far no growth, remains afebrile, underwent delayed wound closure 09/20/2024 successfully, - He will be discharged on meropenem 2 g IV every 8 hours for total of 6 weeks, stop date October 29, 2024 - Daptomycin 800 mg IV every 24 hours for a total of 6 weeks stop date October 29, 2024 - Follow-up with Dr. Pratt - Follow-up with Dr. Person - Continue to monitor left lower extremity, nonweightbearing left lower extremity - Patient was advised if he develops any fevers or chills he may go to the emergency room - Continuing PICC line and IV antibiotics per infectious disease recommendations. - Nonweightbearing left foot. - Elevate left foot level or above the hip. - Follow-up in podiatry clinic this Friday, September 24, 2024 at 2:30 PM - Keep current dressing clean, dry and intact until follow-up visit in podiatry clinic this Friday. - Contact podiatry clinic with any questions or concerns [phone] - Please use hydrocodone sparingly for pain - Please monitor your blood sugars closely -Please monitor your blood sugars closely -Monitor your blood sugars 3 times daily as after meals -Please record your blood sugars, and a blood sugar log -If your blood sugar is greater than 500 go to the emergency room -If your blood sugar is less than 60 or at anytime you feel lightheaded or dizzy or diaphoretic or have chest palpitations check your blood sugar, and eat a hard candy or drink orange juice and go immediately to the emergency room -Remember hypoglycemia kills, so if his blood sugar is less than 60 we have to increase it by taking in a sugary meal such as a hard candy or orange juice and go to the emergency room -If you have any questions please call us where here to help Physical Exam Const: COMMON NORMALS: no acute distress and patient oriented x3 Resp: COMMON NORMALS: normal respiratory effort, No retractions, No use of accessory muscles and clear to auscultation bilaterally AUSCULTATION: clear to auscultation bilaterally Cardio: COMMON NORMALS: regular rate, regular rhythm, S1 normal heart sound present and S2 normal heart sound present RATE: regular rate RHYTHM: regular rhythm HEART SOUNDS: S1 normal heart sound present and S2 normal heart sound present GI: COMMON NORMALS: Normal to inspection, nondistended, normoactive bowel sounds present and non-tender Extremity: COMMON NORMALS: no pedal edema Neuro: COMMON NORMALS: patient oriented x3 Psych: COMMON NORMALS: mental status grossly normal Discharge Data Studies Completed and Pending Completed Studies During Hospitalization Category Date Time Status XR foot LT min 3V* [id number] Routine Exams 09/15/24 19:04 Completed MR foot LT wo/w con [id number] Routine MRI 09/14/24 14:21 Completed US arterial duplex lower extremity bilat [CV arterial Ultrasound 09/14/24 14:56 [place] [id number]] Routine Pending at discharge Category Date Time Status Fungal Culture not HR/SK/BL Routine Lab 09/17/24 09:34 Results Mycobacteria, Culture w/Fluor Routine Lab 09/17/24 09:34 Results Pathology: Surgical [PTH] Routine Pth 09/15/24 13:12 Received Radiology Impressions Foot MRI 09/14/24 14:21 IMPRESSION: Findings of osteomyelitis of the 1st metatarsal and mid to distal 2nd metatarsal and 2nd proximal phalanx with large abscess extending from post surgical site to the 2nd/3rd metatarsals dorsally. Diffuse muscular edema suggestive of myositis. Duplex Scan Lower Extremity Artery 09/14/24 14:56 IMPRESSION: 1. CARMEN 1.18 on the right and 1.1 on the left. 2. Multiphasic waveforms throughout the right leg. 3. Multiphasic waveforms at and above the knee of the left leg, with monophasic waveforms within the posterior tibial and dorsalis pedis arteries [id number] suggesting small-vessel disease. 4. No significant stenosis or occlusion is seen. Foot X-Ray 09/15/24 19:04 IMPRESSION: 1. No evidence of active osteomyelitis. 2. Amputation of the 1st through 5th toes. Laboratory Results WBC 6.47 10^3/uL (3.29-11.43) 09/20/24 04:51 RBC 3.87 10^6/uL (3.85-5.65) 09/20/24 04:51 Hgb 10.40 g/dL (11.27-16.99) L 09/20/24 04:51 Hct 33.3 % (37-53) L 09/20/24 04:51 MCV 86.0 fl (82-101) 09/20/24 04:51 MCH 26.9 pg (27-33) L 09/20/24 04:51 MCHC 31.2 g/dL (30-55) 09/20/24 04:51 RDW 12.1 % (12.1-15.1) 09/20/24 04:51 Plt Count 332 10^3/cmm (157-399) 09/20/24 04:51 MPV 9.1 fL (7.4-10.4) 09/20/24 04:51 Neut % (Auto) 49.5 % 09/20/24 04:51 Lymph % (Auto) 35.7 % 09/20/24 04:51 [place] % (Auto) 7.4 % 09/20/24 04:51 Eos % (Auto) 6.2 % 09/20/24 04:51 Baso % (Auto) 0.9 % 09/20/24 04:51 Neut # (Auto) 3.20 10^3/uL (1.8-7.7) 09/20/24 04:51 Lymph # (Auto) 2.3 10^3/uL (0.8-4.8) 09/20/24 04:51 [place] # (Auto) 0.5 10^3/uL (0.2-0.9) 09/20/24 04:51 Eos # (Auto) 0.4 10^3/uL (0.0-0.8) 09/20/24 04:51 Baso # (Auto) 0.1 10^3/uL (0.0-0.1) 09/20/24 04:51 Nucleated RBC % (auto) 0 % 09/20/24 04:51 Nucleated RBCs # 0.0 /100WBC 09/20/24 04:51 ESR 38 mm/hr (0-10) H 09/14/24 16:36 Sodium 136 mmol/L (136-145) 09/20/24 04:51 Potassium 4.2 mmol/L (3.5-5.1) 09/20/24 04:51 Chloride 99 mmol/L (98-107) 09/20/24 04:51 Carbon Dioxide 26 mmol/L (22-29) 09/20/24 04:51 Anion Gap 15.2 (5-19) 09/20/24 04:51 BUN 12 mg/dL (6-20) 09/20/24 04:51 Creatinine 0.5 mg/dL (0.7-1.2) L 09/20/24 04:51 GFR Calculation 188.1 mL/min (90-130) H 09/20/24 04:51 Glucose 130 mg/dL (65-115) H 09/20/24 04:51 POC Glucose 93 mg/dL (70-110) 09/21/24 10:18 Calculated Osmolality 284 mOsm/kg (285-295) L 09/20/24 04:51 Lactic Acid 0.7 mmol/L (0.5-2.2) 09/14/24 16:36 Calcium 9.1 mg/dL (8.5-10.5) 09/20/24 04:51 Total Bilirubin 0.4 mg/dL (0.15-1.2) 09/14/24 16:36 AST 13 U/L (0-40) 09/14/24 16:36 ALT 13 U/L (0-41) 09/14/24 16:36 Alkaline Phosphatase 83 U/L (40-130) 09/14/24 16:36 Creatine Kinase 35 U/L (39-308) L 09/19/24 04:08 C-Reactive Protein 69.2 mg/L (0.0-4.9) H 09/14/24 16:36 Total Protein 7.7 g/dL (6.6-8.7) 09/14/24 16:36 Albumin 3.5 g/dL (3.5-5.2) 09/14/24 16:36 Globulin 4.2 g/dL (1.3-4.6) 09/14/24 16:36 Procalcitonin 0.07 ng/mL (0-0.5) 09/14/24 16:36 TSH 0.88 uIU/mL (0.27-4.20) 09/14/24 16:36 Vitals Last Vital Signs Temp 98.3 F 09/21/24 08:00 Pulse 82 09/21/24 08:00 Resp 17 09/21/24 08:00 BP 110/73 09/21/24 08:00 Pulse Ox 96 09/21/24 07:29 O2 Del Method Room Air 09/21/24 07:29 O2 Flow Rate 8 09/20/24 12:52 Discharge Plan Discharge Patient Disposition: Home Condition: Stable Prescriptions: New meropenem 2 gram recon soln 2 g IV Q8H 42 Days (DME) Dexcom G6 Transmitter Device See Rx Instructions .Route Qty: 1 0RF Rx Instructions: As directed (DME) Dexcom G6 Sensor Device See Rx Instructions .Route Qty: 3 0RF Rx Instructions: As directed glucagon HCl [Glucagon (HCl) Emergency Kit] 1 mg recon soln 1 mg IM Q20M PRN (Reason: hypoglycemia) Qty: 1 0RF Rx Instructions: until target blood sugar attained atorvastatin 40 mg Tablet 40 mg PO BEDTIME 30 Days Qty: 30 0RF aspirin 81 mg Tablet,Delayed Release (Dr/Ec) 81 mg PO DAILY 30 Days Qty: 30 0RF Continued (DME) Wheelchair with elevated leg rest to left See Rx Instructions .Route .MEDSUPPLY Qty: 1 0RF Rx Instructions: As directed Length of need is [id number] days ([facility] [place] Dexcom G7 Sensor Device See Rx Instructions .ROUTE .MEDSUPPLY Qty: 9 2RF Rx Instructions: change every 10 days ([facility] [place]) Dexcom G7 [employer] Misc See Rx Instructions .ROUTE .MEDSUPPLY Qty: 1 0RF Rx Instructions: As directed insulin lispro [Humalog KwikPen Insulin] 100 unit/mL insulin pen 5 unit SUBCUT TID Qty: 15 0RF (DME) pen needle, diabetic [Ultra-Thin II Ins Pen [place]] 29 gauge x 1/2 needle See Rx Instructions .Route Qty: 100 0RF Rx Instructions: As directed ([facility] [place]) blood-glucose meter [Glucocard 01 Meter] Kit See Rx Instructions .Route Qty: 1 0RF Rx Instructions: As directed mupirocin [Centany] 2 % ointment 1 applic topical TID Qty: 15 0RF Rx Instructions: Apply to right great toe 3 times daily with Band-Aid. insulin glargine [Lantus U-100 Insulin] 100 unit/mL Solution 30 unit SUBCUT BEDTIME 30 Days Qty: 30 0RF daptomycin 500 mg Recon Soln 800 mg IVP Q24H Qty: 0 0RF metoprolol succinate 25 mg capsule,sprinkle,ER 24hr 25 mg PO DAILY Qty: 30 0RF hydrocodone-acetaminophen 7.5-325 mg tablet 1 tab PO Q8H PRN (Reason: Pain) 5 Days Qty: 15 0RF Discharge Orders: Discharge Order (Routine); Ordered 09/21/24 Ordered By: Jax Matos Other Ambulatory Orders: Miscellaneous Procedure (Order) Location: None Selected Ordered By: Jax Matos Referrals: Infectious Disease Group [facility] [Provider Group, Infectious Disease] - 09/28/24 2:00 pm [facility] [Outside] [facility] In[facility] [Outside] - 09/29/24 9:30 am Citlalli Matthew FNP [Primary Care Provider, Nurse Practitioner] - 09/29/24 1:45 pm Saturnino Person DPM [Physician, Podiatry] - 09/29/24 10:15 am Shawn Nuñez MD [Physician, Endocrinology] - 09/24/24 11:30 am Referral Note: Discharge Diet: Cardiac Discharge Activity: Resume usual activity Patient Instructions: Aspirin (By mouth), Atorvastatin (By mouth), Meropenem (By injection), Acute Wound Care (DC), PICC (Peripherally Inserted Central Catheter) (GEN), Opioid Safety, Post Anesthesia Care Activity Restrictions/Additional Instructions: Instructions from Dr. Person in regards to left foot wound. - Continuing PICC line and IV antibiotics per infectious disease recommendations. - Nonweightbearing left foot. - Elevate left foot level or above the hip. - Follow-up in podiatry clinic this Friday, September 24, 2024 at 2:30 PM - Keep current dressing clean, dry and intact until follow-up visit in podiatry clinic this Friday. - Contact podiatry clinic with any questions or concerns [phone] - Please use hydrocodone sparingly for pain - Please monitor your blood sugars closely -Please monitor your blood sugars closely -Monitor your blood sugars 3 times daily as after meals -Please record your blood sugars, and a blood sugar log -If your blood sugar is greater than 500 go to the emergency room -If your blood sugar is less than 60 or at anytime you feel lightheaded or dizzy or diaphoretic or have chest palpitations check your blood sugar, and eat a hard candy or drink orange juice and go immediately to the emergency room -Remember hypoglycemia kills, so if his blood sugar is less than 60 we have to increase it by taking in a sugary meal such as a hard candy or orange juice and go to the emergency room -If you have any questions please call us where here to help Discharge Attestations Time Spent in Discharge Care*: greater than 30 min Quality Metrics Clinical Quality Measures [ No reported AMI, CVA or VTE this stay] Coding Level of Care Code 43319 Total time (in minutes) for Discharge: 45 Diagnoses Osteomyelitis of foot, left, acute M86.172 Abscess of left foot L02.612 Diabetic peripheral neuropathy associated with type 2 diabetes mellitus E11.42
[2024-09-21] MEDS: enoxaparin 40 mg/0.4 mL Syringe SUBCUT (15:23)
[2024-09-21] MEDS: pantoprazole 40 mg SDV IVP (15:23)
[2024-09-21 15:34] LABS: Glucose Point of Care 175 mg/dL (70-110)
[2024-09-21] MEDS: DAPTOmycin 500 MG SDV 800 MG IVP (15:57)
--- NOTE | 2024-09-21 16:59 | PC.NURSE ---
Discussed discharge with patient and family member. Went over all new medications, follow up appointments, picc care and foot care along with signs and symptoms of infection/drainage. Patient and family member verbalized understanding.
== END 2024-09-21 16:20 | disposition home or self-care (01) | DRG 854 ==
PROVIDERS: Podiatrist Foot & Ankle Surgery; Admitting Provider Family Medicine; PCP Nurse Practitioner; Visit Provider Family Medicine
PROC: 0Y6N0Z9 Detachment at Left Foot, Partial 1st Ray, Open Approach (ICD-10-PCS; principal; 2024-09-15 12:00)
PROC: 0KDW0ZZ Extraction of Left Foot Muscle, Open Approach (ICD-10-PCS; CPT 13160; principal; 2024-09-20 12:00)
DX: A41.9 Sepsis, unspecified organism (principal); L02.416 Cutaneous abscess of left lower limb; L03.114 Cellulitis of left upper limb; M86.172 Other acute osteomyelitis, left ankle and foot; E11.51 Type 2 diabetes mellitus with diabetic peripheral angiopathy without gangrene; Z79.4 Long term (current) use of insulin; Z79.899 Other long term (current) drug therapy; E11.69 Type 2 diabetes mellitus with other specified complication; T87.81 Dehiscence of amputation stump; E11.40 Type 2 diabetes mellitus with diabetic neuropathy, unspecified
CPT/HCPCS: 36415; 36416; 36592; 73630; 73720; 80048; 80053; 82550; 82962; 83605; 84145; 84443; 85025; 85651; 86140; 87015; 87040; 87070; 87102; 87116; 87176; 87205; 87206; 87801; 88305; 88311; 93925; 94664; 96372; A6446; J0878; J1650; J1815; J2185; J2250; J2270; J2470; J2704; J3010; J3370; J3490; J7030; J9999; L8699

== ENCOUNTER → 2024-10-12 12:57 | Outpatient (BNVA) | payer BC, SELFPAY | PROVIDERS: PCP Nurse Practitioner; Visit Provider Podiatrist Foot & Ankle Surgery | DX: M86.172 Other acute osteomyelitis, left ankle and foot (principal); Z89.432 Acquired absence of left foot; E11.42 Type 2 diabetes mellitus with diabetic polyneuropathy; Z79.4 Long term (current) use of insulin | CPT/HCPCS: 73630 ==

== ENCOUNTER 2024-10-28 10:30 | Oncology outpatient (recurring) (ONCR) | payer BC, SELFPAY ==
[2024-09-29 10:09] LABS: Hematocrit 34.7 % (37-53); Hemoglobin 11.10 g/dL (11.27-16.99); Mean Corpuscular HGB Conc 32.0 g/dL (30-55); Mean Corpuscular Hemoglobin 27.1 pg (27-33); Mean Corpuscular Volume 84.8 fl (82-101); Nucleated Red Blood Cells % 0 %; Platelet Count 430 10^3/cmm (157-399); Red Blood Count 4.09 10^6/uL (3.85-5.65); White Blood Count 7.43 10^3/uL (3.29-11.43)
[2024-09-29 10:54] LABS: Alanine Aminotransferase 18 U/L (0-41); Albumin Level 3.5 g/dL (3.5-5.2); Alkaline Phosphatase 90 U/L (40-130); Aspartate Amino Transferase 16 U/L (0-40); Globulin 4.2 g/dL (1.3-4.6); Total Protein 7.7 g/dL (6.6-8.7)
[2024-10-07 11:39] LABS: Hematocrit 37.1 % (37-53); Hemoglobin 11.80 g/dL (11.27-16.99); Mean Corpuscular HGB Conc 31.8 g/dL (30-55); Mean Corpuscular Hemoglobin 27.0 pg (27-33); Mean Corpuscular Volume 84.9 fl (82-101); Nucleated Red Blood Cells % 0 %; Platelet Count 385 10^3/cmm (157-399); Red Blood Count 4.37 10^6/uL (3.85-5.65); White Blood Count 9.64 10^3/uL (3.29-11.43)
[2024-10-07 11:40] VITALS: BP 112/68; PULSE 64; RESP 16; TEMP 36.8; O2SAT 98
[2024-10-07 11:54] LABS: Alanine Aminotransferase 18 U/L (0-41); Albumin Level 3.6 g/dL (3.5-5.2); Alkaline Phosphatase 88 U/L (40-130); Aspartate Amino Transferase 20 U/L (0-40); Globulin 4.3 g/dL (1.3-4.6); Total Protein 7.9 g/dL (6.6-8.7)
[2024-10-12 07:04] LABS: GAD Insulin Autoantibody <0.4 U/mL (<0.4)
[2024-10-14 11:09] LABS: Hematocrit 38.1 % (37-53); Hemoglobin 12.10 g/dL (11.27-16.99); Mean Corpuscular HGB Conc 31.8 g/dL (30-55); Mean Corpuscular Hemoglobin 26.6 pg (27-33); Mean Corpuscular Volume 83.7 fl (82-101); Nucleated Red Blood Cells % 0 %; Platelet Count 273 10^3/cmm (157-399); Red Blood Count 4.55 10^6/uL (3.85-5.65); White Blood Count 5.02 10^3/uL (3.29-11.43)
[2024-10-14 11:24] LABS: Alanine Aminotransferase 23 U/L (0-41); Albumin Level 3.8 g/dL (3.5-5.2); Alkaline Phosphatase 98 U/L (40-130); Aspartate Amino Transferase 18 U/L (0-40); Globulin 3.9 g/dL (1.3-4.6); Total Protein 7.7 g/dL (6.6-8.7)
[2024-10-21 11:29] LABS: Hematocrit 39.3 % (37-53); Hemoglobin 12.80 g/dL (11.27-16.99); Mean Corpuscular HGB Conc 32.6 g/dL (30-55); Mean Corpuscular Hemoglobin 27.6 pg (27-33); Mean Corpuscular Volume 84.7 fl (82-101); Nucleated Red Blood Cells % 0 %; Platelet Count 252 10^3/cmm (157-399); Red Blood Count 4.64 10^6/uL (3.85-5.65); White Blood Count 7.75 10^3/uL (3.29-11.43)
[2024-10-21 11:30] VITALS: BP 128/74; PULSE 68; RESP 16; TEMP 36.8; O2SAT 99
[2024-10-21 12:00] LABS: Alanine Aminotransferase 30 U/L (0-41); Albumin Level 4.0 g/dL (3.5-5.2); Alkaline Phosphatase 95 U/L (40-130); Aspartate Amino Transferase 21 U/L (0-40); Globulin 3.7 g/dL (1.3-4.6); Total Protein 7.7 g/dL (6.6-8.7)
[2024-10-28 11:39] LABS: Hematocrit 39.6 % (37-53); Hemoglobin 12.80 g/dL (11.27-16.99); Mean Corpuscular HGB Conc 32.3 g/dL (30-55); Mean Corpuscular Hemoglobin 27.2 pg (27-33); Mean Corpuscular Volume 84.3 fl (82-101); Nucleated Red Blood Cells % 0 %; Platelet Count 250 10^3/cmm (157-399); Red Blood Count 4.70 10^6/uL (3.85-5.65); White Blood Count 5.13 10^3/uL (3.29-11.43)
[2024-10-28 11:56] LABS: Alanine Aminotransferase 26 U/L (0-41); Albumin Level 3.9 g/dL (3.5-5.2); Alkaline Phosphatase 110 U/L (40-130); Aspartate Amino Transferase 19 U/L (0-40); Globulin 3.7 g/dL (1.3-4.6); Total Protein 7.6 g/dL (6.6-8.7)
== END 2024-10-28 23:59 | disposition home or self-care (01) ==
PROVIDERS: Internal Medicine; PCP Nurse Practitioner; Visit Provider Student in an Organized Health Care Education/Training Program
DX: M86.172 Other acute osteomyelitis, left ankle and foot (principal)
CPT/HCPCS: 36415; 36592; 73630; 80076; 82550; 82565; 85025; 86140; 86337; 86341

== ENCOUNTER 2024-11-09 14:05 | Outpatient (CLI) | payer BC, SELFPAY | END 2024-11-09 14:06 | disposition home or self-care (01) | LOC: SPT 14:06 | PROVIDERS: PCP Nurse Practitioner; Visit Provider Podiatrist Foot & Ankle Surgery | DX: Z47.89 Encounter for other orthopedic aftercare (principal); Z98.890 Other specified postprocedural states; Z89.432 Acquired absence of left foot; M86.172 Other acute osteomyelitis, left ankle and foot; E11.42 Type 2 diabetes mellitus with diabetic polyneuropathy; L97.522 Non-pressure chronic ulcer of other part of left foot with fat layer exposed | CPT/HCPCS: L4361 ==

== ENCOUNTER 2024-11-11 10:30 | Oncology outpatient (recurring) (ONCR) | payer BC, SELFPAY ==
[2024-11-04 11:10] VITALS: BP 122/64; PULSE 76; RESP 16; TEMP 36.7; O2SAT 98
[2024-11-04 11:26] LABS: Hematocrit 38.7 % (37-53); Hemoglobin 12.80 g/dL (11.27-16.99); Mean Corpuscular HGB Conc 33.1 g/dL (30-55); Mean Corpuscular Hemoglobin 27.8 pg (27-33); Mean Corpuscular Volume 83.9 fl (82-101); Nucleated Red Blood Cells % 0 %; Platelet Count 272 10^3/cmm (157-399); Red Blood Count 4.61 10^6/uL (3.85-5.65); White Blood Count 5.05 10^3/uL (3.29-11.43)
[2024-11-04 11:43] LABS: Alanine Aminotransferase 23 U/L (0-41); Albumin Level 3.8 g/dL (3.5-5.2); Alkaline Phosphatase 102 U/L (40-130); Aspartate Amino Transferase 17 U/L (0-40); Globulin 3.4 g/dL (1.3-4.6); Total Protein 7.2 g/dL (6.6-8.7)
== END 2024-11-28 23:59 | disposition home or self-care (01) ==
PROVIDERS: PCP Nurse Practitioner; Visit Provider Student in an Organized Health Care Education/Training Program
DX: Z53.9 Procedure and treatment not carried out, unspecified reason (principal)
CPT/HCPCS: 36592; 80076; 82550; 82565; 85025; 86140

== ENCOUNTER → 2024-11-23 14:39 | Outpatient (BNVA) | payer BC, SELFPAY | PROVIDERS: PCP Nurse Practitioner; Referring Provider Student in an Organized Health Care Education/Training Program; Visit Provider Internal Medicine | DX: R07.9 Chest pain, unspecified (principal) | CPT/HCPCS: 93005 ==

== ENCOUNTER 2024-11-23 15:27 | Emergency (ER) | payer BC, SELFPAY ==
--- OUTSIDE RECORDS SUMMARY | 2024-11-23 14:31 | XMS_ITS | Continuity of Care Document ---
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 It does not include entries that were removed or entered in error. Problem Status Onset Date Problem Type Date of Resolution Comments Source Patient Counseling: Inquiry & Counseling Active Condition DoD visit for: screening exam pulmonary tuberculosis Inactive Condition DoD visit for: services physical Active Condition DoD ASTIGMATISM Active Condition DoD ASSESS PATIENT CONDITION WORK-RELATED OCCUPATIONAL DISEASE Active Condition [facility] Patient Education - Injury Prevention Active Condition [facility] visit for: ears / hearing exam Active Condition [facility] REFRACTIVE ERROR - MYOPIA Active Condition RX VIGAMOX 1GTT OUX2HR. RTC 24HRS. POSSIBLE STAPH INFECTION SECONDARY TO CL WEAR- D/C CL WEAR. [facility] KERATITIS Active Condition C/L relate d keratitis appears to be resolving with use of vigamox.Plan:1 . Vigamox TID until run out of drops2. Spec wear while in training and/or in fieldEducation :1. Medication usage2. CL hygiene if/when starts to wear againRTC PRN if condition worsens. [facility] visit for: examination of subpopulation Active Condition DoD Immunizations Combined list of available immunizations from the Department of Defense and Veterans Affairs facilities. 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 Status Comments Source Influenza, seasonal, injectable 1 2011 [id number] Sanofi Pasteur (PMC) complet ed Influenza , seasonal, injectabl e DoD anthrax vaccine 3 2011 [id number] [employer] [place] (MIP) complet ed anthrax vaccine DoD anthrax vaccine 2 2011 [id number] [employer] Alex (MIP) complet ed anthrax vaccine DoD vaccinia (smallpox) vaccine 1 2011 [id number] (TESSIE) complet ed vaccinia (smallpox ) vaccine DoD anthrax vaccine 1 2011 [id number] [employer] Alex (MIP) complet ed anthrax vaccine DoD Influenza, seasonal, injectable [id number] [facility] [employer] (CS) complet ed Influenza , seasonal, injectabl e DoD typhoid vaccine, parenteral, other than acetone-kille d, dried 1 2010 [id number] Unknown (UNK) comple t ed typhoid vaccine, parentera l, other than acetone-k illed, dried DoD hepatitis B vaccine, adult dosage 3 2010 [id number] 43 Unknown (UNK) complet ed hepatitis B vaccine, adult dosage DoD influenza virus vaccine, split virus (incl. purified surface antigen)-reti red CODE 1 2009 [id number] Unknown (UNK) comple t ed influenza virus vaccine, split virus (incl. purified surface antigen)- retired CODE DoD influenza virus vaccine, split virus (incl. purified surface antigen)-reti red CODE 1 2008 [id number] 15 Unknown (UNK) complet ed influenza virus vaccine, split virus (incl. purified surface antigen)- retired CODE DoD hepatitis B vaccine, adult dosage 2 2008 [id number] 43 Unknown (UNK) complet ed hepatitis B vaccine, adult dosage DoD hepatitis A vaccine, adult dosage 2 2008 [id number] 52 Unknown (UNK) complet ed hepatitis A vaccine, adult dosage DoD hepatitis B vaccine, adult dosage 1 2008 [id number] 43 Unknown (UNK) complet ed hepatitis B vaccine, adult dosage DoD hepatitis A vaccine, adult dosage 1 2008 [id number] 52 Unknown (UNK) complet ed hepatitis A vaccine, adult dosage DoD typhoid Vi capsular polysaccharid e vaccine 1 2008 [id number] Unknown (UNK) comple t ed typhoid Vi capsular polysacch aride vaccine DoD influenza virus vaccine, split virus (incl. purified surface antigen)-reti red CODE 1 2007 [id number] 15 Unknown (UNK) complet ed influenza virus vaccine, split virus (incl. purified surface antigen)- retired CODE DoD measles, mumps and rubella virus vaccine 1 2006 [id number] Merck (MSD) complet ed measles, mumps and rubella virus vaccine DoD poliovirus vaccine, inactivated 1 2006 [id number] Sanofi Pasteur (PMC) complet ed polioviru s vaccine, inactivat ed DoD varicella virus vaccine 1 2006 [id number] 21 Unknown (UNK) Not Given varicella virus vaccine DoD hepatitis B vaccine, adult dosage 1 2006 [id number] 43 Unknown (UNK) Not Given hepatitis B vaccine, adult dosage DoD hepatitis A vaccine, adult dosage 1 2006 UNK 52 Unknown (UNK) Not Given hepatitis A vaccine, adult dosage DoD meningococcal polysaccharid e (groups A, C, Y and W-135) diphtheria toxoid conjugate vaccine (MCV4P) 1 2006 [id number] Sanofi Pasteur (PMC) complet ed meningoco ccal polysacch aride (groups A, C, Y and W-135) diphtheri a toxoid conjugate vaccine (MCV4P) DoD tetanus toxoid, reduced diphtheria toxoid, and acellular pertu is vaccine, adsorbed 1 2006 [id number] 115 Sanofi Pasteur (PMC) complet ed tetanus toxoid, reduced diphtheri a toxoid, and acellular pertussis vaccine, adsorbed DoD influenza virus vaccine, split virus (incl. purified surface antigen)-reti red CODE 1 2006 UNK 15 Unknown (UNK) comple t ed influenza virus vaccine, split virus (incl. purified surface antigen)- retired CODE DoD Encounters Combined list of: 1) Encounters from Department of Veterans Affairs facilities going backup to the last 18 months, not all VA inpatient encounters are included; 2) Encounters from the Department of Defense facilities going backup to 280 months. Location Location Details Encounter Type Encounter Number Reason For Visit Attending Provider ADM Date DC Date Status Disposition Source [facility] [place] OUTPATIENT [id number] CHANDAN CHAPA 02/02 Released w/o Limitations [facility] [place] [facility] [place] OUT[place]IENT [id number] F/U CHANDAN Ruiz 02/03 Released w/o Limitations [facility] [place] [facility] [place]) OUTPATIENT [id number] TALISHA MUSE. 02/03 Released w/o Limitations [place] OUTPATIENT [id number] MILTON ROWE 02/05 Released w/o Limitations [place] OUTPATIENT [id number] f/u keratit is ARMANDO SCHROEDER, CHANDAN Hirsch. 02/05 Released w/o Limitations [place] [facility] Hearing Program) OUTPATIENT [id number] ANY BAUMANN 07/16 Released w/o Limitations [facility] ) [facility]) OUTPATIENT [id number] [facility] DANTE CORREIA 07/16 Released w/o Limitations [facility]) [facility]) OUTPATIENT [id number] Notes Entered by: Thierno CONSTANTINO 05 Jun 2012 1324 ------- ------- ------- ------- -- LI LYNCH 06/05 Released w/o Limitations [facility] ) [facility]) OUTPATIENT [id number] Notes Entered by: CIARRA ROBLERO 05 Jun 2012 1537 ------- ------- ------- ------- -- LAKSHMI Jeronimo 06/05 Released w/o Limitations [facility]) [facility]) OUTPATIENT [id number] Notes Entered by: MELCHOR ROBLERO 08 Jun 2012 0738 ------- ------- ------- ------- -- LAWANDA Reyes 06/08 Released w/o Limitations [facility] Parmjit Flores([facility] ent Clinic) Procedures Combined list of: 1) Procedures from Department of Veterans Affairs facilities going back up to thelast 18 months, not all VA non-surgical procedures are included; 2) All procedures from the Department of Defense facilities. Procedure Procedure Type Code Date Perfomer Comments Sour e HEPATITIS A VACCINE (HEPA), ADULT DOSAGE, FOR INTRAMUSCULAR USE 03/13/20 07 [facility] OPHTHALMOLOGICAL SERVICES: MEDICAL EXAMINATION AND EVALUATION, WITH INITIATION OR CONTINUATION OF DIAGNOSTIC AND TREATMENT PROGRAM; INTERMEDIATE, ESTABLISHED PATIENT 02/06/20 07 [facility] DETERMINATION OF REFRACTIVE STATE 02/06/20 07 [facility] EAR MOLD/INSERT, NOT DISPOSABLE, ANY TYPE 02/04/20 07 [facility] FITTING OF SPECTACLES, EXCEPT FOR APHAKIA; MONOFOCAL 02/03/20 07 [facility] SCREENING TEST OF VISUAL ACUITY, QUANTITATIVE, BILATERAL 06/09/19 13 [facility] SKIN TEST; TUBERCULOSIS, INTRADERMAL 06/06/19 13 [facility] AUDIOMETRIC TESTING OF GROUPS 06/06/19 13 [facility] UNLISTED VACCINE/TOXOID 08/28/19 12 [facility] AUDIOMETRIC TESTING OF GROUPS 07/17/19 12 [facility] ANTHRAX VACCINE, FOR SUBCUTANEOUS OR INTRAMUSCULAR USE 07/17/19 12 [facility] Audiometry Group Testing Audiometry Group Testing [id number] 06/10/19 13 LI SALDIVAR [facility] Skin Test Anergy Tuberculin Intradermal Skin Test Anergy Tuberculin Intradermal 88857 06/06/19 13 LAKSHMI GILLIS [facility] Audiometry Group Testing Audiometry Group Testing 91175 07/18/19 12 ANY SWENSNO [facility] Ophthalmological Prior Patient Start Intermediate Level Care Ophthalmological Prior Patient Start Intermediate Level Care 05167 02/07/20 07 CHANDAN SINGH [facility] Screening Test Of Visual Acuity, Quantitative, Bilateral Screening Test Of Visual Acuity, Quantitative, Bilateral 76739 02/06/20 07 MARCO A GOMEZ [facility] Spectacles Services Fitting Monofocals (Not For Aphakia) [facility] Fitting Monofocals (Not For Aphakia) 97297 02/06/20 07 MARCO A GOMEZ Determination Of Refractive State Determination Of Refractive State 00759 02/06/20 07 MARCO A GOMEZ Ear mold/insert, not disposable, any type 02/04/20 07 TALISHA MUSE [facility] Testing Audiometry Group Testing 82977 02/04/[address]Supervised Group Educational Services 02/04/[address] Services Special Review / Reporting Of Patient Status Services Special Review / Reporting Of Patient Status 90274 02/04/20 07 TALISHA MUSE [facility] Services Fitting Monofocals (Not For Aphakia) [facility] Fitting Monofocals (Not For Aphakia) 62308 02/03/20 07 HCANDAN SINGH Determination Of Refractive State Determination Of Refractive State 97495 02/03/20 07 CHANDAN SINGH Ophthalmological New Patient Start Intermediate Level Care Ophthalmological New Patient Start Intermediate Level Care 46286 02/03/20 07 CHANDAN SINGH Social History Combined list of available smoking, tobacco, and other social history from Department of Defense and Veterans Affairs facilities. Social History Type Response Date Comment Sourc e This section is an empty social history section. DoD
[2024-11-23 15:28] VITALS: BP 90/69; PULSE 152; RESP 16; TEMP 36.6; O2SAT 100
--- NOTE | 2024-11-23 15:31 | ECG_ITS ---
[facility] 2024-11[facility]23 Pat Name: Luther Abdullahi Department: Room: Gender: Male Manager Heart Failure: : 1990 Requested By: Randy Nunez Order Number: [id number] Liyah MD: Beverly Tucker M.D. Measurements Intervals [place] Rate: 153 P: 0 NH: 0 QRS: 79 QRSD: 106 T: 47 QT: 281 QTc: 449 Interpretive Statements SUPRAVENTRICULAR TACHYCARDIA CRITICAL TEST RESULT Compared to ECG 11/23/2024 14:47:21 Atrial flutter no longer present Intraventricular conduction delay no longer present Electronically Signed On 11-23-2024 18:02:21 CDT by Beverly Tucker M.D. [email or web address]
--- OUTSIDE RECORDS SUMMARY | 2024-11-23 15:32 | XMS_ITS | Clinical Summary ---
Author Organization [facility] Address [address] [place] [address] Care Team Providers Care Lead Neurodiagnostic Technologist Name Role Phone Unavailable Primary Care Provider [...] Health Maintenance Due Date Last Done Comments HPV VACCINES (1 - Male 3-dos e series) 01/20/2003 HEPATITIS B VACCINES (1 of 3 - 19+ 3-dose series) 01/20/2007 04/07/2010, 10/15/2008, 05/07/2008 DTAP/TDAP/TD VACCINES (2 - T d or Tdap) 02/04/2017 02/04/2007 INFLUENZA VACCINE (#1) 2024 02/17/2012, 2010
--- NOTE | 2024-11-23 15:45 | XRR_ITS ---
PROCEDURE INFORMATION: Exam: XR Chest Exam date and time: 11/23/2024 3:55 PM Age: 34 years old Clinical indication: Cough and dyspnea; High heartrate; Additional info: Dyspnea/cough TECHNIQUE: Imaging protocol: Radiologic exam of the chest. Views: 1 view. COMPARISON: CR XR chest 1V portable [id number] 09/01/2024 10:33 AM FINDINGS: Lungs: Minimal infiltrate or atelectasis in the right upper lobe. Pleural spaces: Unremarkable. No pleural effusion. No pneumothorax. Heart/Mediastinum: Unremarkable. No cardiomegaly. Bones/joints: Unremarkable. XR/XR chest 1V portable [id number] IMPRESSION: Minimal opacity in the right upper lobe.
--- NOTE | 2024-11-23 15:46 | W.ED.ARRPALP ---
Documented by User: Randy Lorenz, 11/24/24 06:49 HPI - Arrhythmia/Palpitations General: Chief Complaint: Arrhythmia/Palpitations Stated Complaint: cardio sent, high hr, fluttering Time Seen by Provider: 11/23/24 15:36 History of Present Illness: 34-year-old male presents emergency room from cardiology office. He was seen there for concern for tachyarrhythmia episodes SVT on arrival there he was evaluated as having a-flutter. Dr. Rowell had called prior to's directing him to the emergency room. On arrival here he is not sure how long it has been going on been a little lightheaded and dizzy with it. He is irregularly irregular appears to be in a flutter rate in the 150s. Denies any chest pain. 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 He is on metoprolol is not on any anticoagulation. Related Data Home Medications ?Medication ?Instructions ?Recorded ?Confirmed aspirin 81 mg tablet,delayed 81 mg PO DAILY 11/23/24 11/23/24 release insulin lispro 100 unit/mL 5 unit SUBCUT TID 11/23/24 11/23/24 subcutaneous pen (Humalog KwikPen (U-100) Insulin) Previous Rx's ?Medication ?Instructions ?Recorded pen needle, diabetic 29 gauge x #100 ea 08/25/24 1/2 (Ultra-Thin II Insulin Pen Kimper) blood-glucose meter (Glucocard 01 #1 ea 08/26/24 Meter kit) mupirocin 2 % topical ointment 1 applic topical TID #15 grams 08/27/24 ([facility]) Wheelchair with elevated leg rest #1 ea 09/01/24 to left blood-glucose sensor (Dexcom G6 #3 ea 09/21/24 Sensor device) blood-glucose transmitter (Dexcom #1 ea 09/21/24 G6 Transmitter device) glucagon HCl 1 mg solution for 1 mg IM Q20M PRN hypoglycemia #1 ea 09/21/24 injection (Glucagon (HCl) Emergency Kit) metoprolol succinate 25 mg capsule 25 mg PO DAILY #30 ea 09/28/24 sprinkle, ext. release 24 hr insulin glargine 100 unit/mL (3 30 unit (0.3 mL) SUBCUT DAILY #15 10/26/24 mL) subcutaneous pen (Lantus mL Solostar U-100 Insulin) CAM walker #1 ea 11/09/24 Diabetic Shoes with Inserts and #1 ea 11/16/24 Toe Filler to the Left blood-glucose sensor (Dexcom G7 #9 ea 11/19/24 Sensor device) blood-glucose,assessment specialist,cont #1 ea 11/19/24 (Dexcom G7 Graffiti Cleaner) apixaban 5 mg tablet (Eliquis) 5 mg PO BID #60 tabs 11/23/24 Allergies Allergy/AdvReac Type Severity Reaction Status Date / Time No Known Allergies Allergy Verified 11/23/24 14:49 Review of Systems Const: Denies: fever(s) or chills Card: Reports: palpitations and irregular heart rhythm; Denies: chest pain, edema, swelling of feet/ankles, dyspnea on exertion or orthopnea Resp: Denies: dyspnea GI: Denies: abdominal pain : Denies: dysuria, urinary frequency or urinary urgency Musc: Denies: neck pain or back pain Skin/Breast: Denies: rash PFSH ED PFSH: Medical History Hyperlipemia, mixed Diabetes mellitus Surgical History History of nasal surgery at age 3 due to being hit by a baseball. History of incision and drainage of his posterior neck due to a spider bite in 2019 Family History Father Diabetes mellitus, type 2 Hypertension Atrial fibrillation Family/Other Stroke uncle- maternal Denies family history of Diabetes Heart disease Chronic kidney disease (CKD) Cancer Thyroid disease Social History Smoking and tobacco/nicotine status: never used tobacco/nicotine Alcohol intake: never Substance/Drug Use: former Date of last use: 2021 Former substance use details: last tried an edible in 2021 Physical Exam Const: GENERAL APPEARANCE: cooperative ORIENTATION/CONSCIOUSNESS: Yes awake, Yes oriented to person, Yes oriented to place and Yes oriented to time HENMT: COMMON NORMALS: normocephalic, atraumatic and hearing grossly normal bilaterally HEAD & SCALP: normocephalic and atraumatic Resp: COMMON NORMALS: normal respiratory effort, No retractions, No use of accessory muscles and clear to auscultation bilaterally AUSCULTATION: clear to auscultation bilaterally Cardio: COMMON NORMALS: No murmurs present (Cardio) RATE: tachycardic RHYTHM: abnormal rhythm irregularly irregular GI: COMMON NORMALS: Soft to palpation and No hepatosplenomegaly present AUSCULTATION: Yes normoactive bowel sounds PALPATION: Yes Soft to palpation, No Tenderness to palpation present (GI), No Guarding due to palpation present (GI) and Yes No hepatosplenomegaly present Extremity: COMMON NORMALS: normal to inspection, capillary refill normal, no clubbing, cyanosis or edema, no calf tenderness and no pedal edema Neuro: SENSORIUM/ORIENTATION: Yes oriented to person, Yes oriented to place and Yes oriented to time Skin: COMMON NORMALS: no rashes or lesions noted GENERAL SKIN EXAM: no rashes or lesions noted Course Vital Signs: Vital signs: Vital Signs Temperature 97.9 F 11/23/24 15:28 Pulse Rate 81 11/23/24 19:34 Respiratory Rate 18 11/23/24 19:34 Blood Pressure 115/81 11/23/24 19:34 Pulse Oximetry 99 11/23/24 19:34 Oxygen Delivery Me thod Room Air 11/23/24 15:28 MDM - Arrhythmia/Palpitations Medical Decision Making Patient responded just to the IV push without initiating any drip. he is back in normal sinus rhythm. EKG done here initially like it might be SVT. Contacted Dr. Rowell. He was comfortable with the patient being discharged home on anticoagulant and diltiazem extended release p.o. If blood pressure improved and patient remained in normal rhythm. Patient signed out to me at shift change by Dr. Lorenz. This is Dr. Pandya. Review the chart shows that he was seen at cardiology clinic where they assessed his EKG to be atrial flutter with RVR. Another EKG showed what appeared to be SVT. He is uncertain how long his heart was beating rapidly as he had no chest pain, shortness of breath, lightheadedness, or other symptoms such as palpitations which would alert him to the phenomenon. To mitigate embolic risk, he will be started on Eliquis and was given a first dose of Lovenox here in the emergency department. My review of the EKGs is less certain of the diagnosis of atrial flutter and I suspect it is possible that all EKGs on the chart show SVT as opposed to atrial flutter with RVR. Patient is low risk for fall and I do not feel that anticoagulation will harm him in any significant way and he will follow-up with cardiology to make sure he remains in sinus rhythm and assess whether further anticoagulation is warranted Lab Data 11/23/24 15:44 11/23/24 15:44 Radiology Impressions Chest X-Ray 11/23/24 15:45 IMPRESSION: Minimal opacity in the right upper lobe. Laboratory Results WBC 7.30 10^3/uL (3.29-11.43) 11/23/24 15:44 RBC 4.98 10^6/uL (3.85-5.65) 11/23/24 15:44 Hgb 14.10 g/dL (11.27-16.99) 11/23/24 15:44 Hct 41.4 % (37-53) 11/23/24 15:44 MCV 83.1 fl (82-101) 11/23/24 15:44 MCH 28.3 pg (27-33) 11/23/24 15:44 MCHC 34.1 g/dL (30-55) 11/23/24 15:44 RDW 13.9 % (12.1-15.1) 11/23/24 15:44 Plt Count 303 10^3/cmm (157-399) 11/23/24 15:44 MPV 9.8 fL (7.4-10.4) 11/23/24 15:44 Neut % (Auto) 52.0 % 11/23/24 15:44 Lymph % (Auto) 37.1 % 11/23/24 15:44 [place] % (Auto) 6.8 % 11/23/24 15:44 Eos % (Auto) 3.0 % 11/23/24 15:44 Baso % (Auto) 1.0 % 11/23/24 15:44 Neut # (Auto) 3.79 10^3/uL (1.8-7.7) 11/23/24 15:44 Lymph # (Auto) 2.7 10^3/uL (0.8-4.8) 11/23/24 15:44 [place] # (Auto) 0.5 10^3/uL (0.2-0.9) 11/23/24 15:44 Eos # (Auto) 0.2 10^3/uL (0.0-0.8) 11/23/24 15:44 Baso # (Auto) 0.1 10^3/uL (0.0-0.1) 11/23/24 15:44 Nucleated RBC % (auto) 0 % 11/23/24 15:44 Nucleated RBCs # 0.0 /100WBC 11/23/24 15:44 Sodium 137 mmol/L (136-145) 11/23/24 15:44 Potassium 4.9 mmol/L (3.5-5.1) 11/23/24 15:44 Chloride 104 mmol/L (98-107) 11/23/24 15:44 Carbon Dioxide 23 mmol/L (22-29) 11/23/24 15:44 Anion Gap 14.9 (5-19) 11/23/24 15:44 BUN 20 mg/dL (6-20) 11/23/24 15:44 Creatinine 0.8 mg/dL (0.7-1.2) 11/23/24 15:44 GFR Calculation 109.4 mL/min (90-130) 11/23/24 15:44 Glucose 161 mg/dL (65-115) H 11/23/24 15:44 Calculated Osmolality 290 mOsm/kg (285-295) 11/23/24 15:44 Calcium 9.2 mg/dL (8.5-10.5) 11/23/24 15:44 Total Bilirubin 0.5 mg/dL (0.15-1.2) 11/23/24 15:44 AST 14 U/L (0-40) 11/23/24 15:44 ALT 19 U/L (0-41) 11/23/24 15:44 Alkaline Phosphatase 92 U/L (40-130) 11/23/24 15:44 Troponin T Baseline 18 ng/L (0-15) H 11/23/24 15:44 Troponin T 120 Minute 13.84 ng/L (0-15) 11/23/24 17:43 Delta Troponin T -4.16 ABS# (0-10) L 11/23/24 17:43 Total Protein 7.1 g/dL (6.6-8.7) 11/23/24 15:44 Albumin 4.2 g/dL (3.5-5.2) 11/23/24 15:44 Globulin 2.9 g/dL (1.3-4.6) 11/23/24 15:44 TSH 1.74 uIU/mL (0.27-4.20) 11/23/24 15:44 Urine Color Yellow (Yellow) 11/23/24 18:59 Urine Appearance Clear (CLEAR) 11/23/24 18:59 Urine pH 5.5 (5-7) 11/23/24 18:59 Ur Specific [place] 1.029 (1.005-1.030) 11/23/24 18:59 Urine Protein Negative (Negative) 11/23/24 18:59 Urine Glucose (UA) Negative (Normal) 11/23/24 18:59 Urine Ketones Trace (Negative) 11/23/24 18:59 Urine Blood Negative (Negative) 11/23/24 18:59 Urine Nitrate Negative (Negative) 11/23/24 18:59 Urine Bilirubin Negative (Negative) 11/23/24 18:59 Urine Urobilinogen 1.0 mg/dL (Negative) 11/23/24 18:59 Ur Leukocyte Esterase Negative (Negative) 11/23/24 18:59 Urine RBC 0-2 /hpf (0-2) 11/23/24 18:59 Urine WBC 0-5 /hpf (0-5) 11/23/24 18:59 Ur Squamous Epith Cells 0-5 /hpf (0-5) 11/23/24 18:59 Amorphous Sediment Not Reportable 11/23/24 18:59 Urine Bacteria None seen /hpf (NONE) 11/23/24 18:59 Hyaline Casts 2.46 /lpf 11/23/24 18:59 EKG Data EKG 1: Other EKG comments: Chest X-Ray 11/23/24 15:45 IMPRESSION: Minimal opacity in the right upper lobe. Discharge Plan Discharge Patient Disposition: Home Clinical Impression: Atrial flutter with rapid ventricular response Condition: Stable Prescriptions: New Eliquis 5 mg tablet 5 mg PO BID Qty: 60 0RF No Action metoprolol succinate 25 mg capsule,sprinkle,ER 24hr 25 mg PO DAILY Qty: 30 2RF (DME) Dexcom G7 Sensor Device See Rx Instructions .Route Qty: 9 1RF Rx Instructions: As directed (DME) Dexcom G7 Graffiti Cleaner Misc See Rx Instructions .Route Qty: 1 0RF Rx Instructions: As directed (DME) CAM walker See Rx Instructions .Route .MEDSUPPLY Qty: 1 0RF Rx Instructions: As directed (DME) Wheelchair with elevated leg rest to left See Rx Instructions .Route .MEDSUPPLY Qty: 1 0RF Rx Instructions: As directed Length of need is [id number] days insulin glargine [Lantus Solostar U-100 Insulin] 100 unit/mL (3 mL) insulin pen 30 unit SUBCUT DAILY Qty: 15 1RF (DME) Diabetic Shoes with Inserts and Toe Filler to the Left See Rx Instructions .Route .MEDSUPPLY Qty: 1 0RF Rx Instructions: As directed: [facility] (DME) pen needle, diabetic [Ultra-Thin II Ins Pen Kimper] 29 gauge x 1/2 needle See Rx Instructions .Route Qty: 100 0RF Rx Instructions: As directed (DME) blood-glucose meter [Glucocard 01 Meter] Kit See Rx Instructions .Route Qty: 1 0RF Rx Instructions: As directed mupirocin [Centany] 2 % ointment 1 applic topical TID Qty: 15 0RF Rx Instructions: Apply to right great toe 3 times daily with Band-Aid. aspirin 81 mg tablet,delayed release (DR/EC) 81 mg PO DAILY insulin lispro [Humalog KwikPen Insulin] 100 unit/mL insulin pen 5 unit SUBCUT TID (DME) Dexcom G6 Transmitter Device See Rx Instructions .Route Qty: 1 0RF Rx Instructions: As directed (DME) Dexcom G6 Sensor Device See Rx Instructions .Route Qty: 3 0RF Rx Instructions: As directed glucagon HCl [Glucagon (HCl) Emergency Kit] 1 mg recon soln 1 mg IM Q20M PRN (Reason: hypoglycemia) Qty: 1 0RF Rx Instructions: until target blood sugar attained Discharge Orders: Discharge ED (Routine); Ordered 11/23/24 Ordered By: Ernst Pandya Referrals: Citlalli Matthew FNP [Primary Care Provider, Nurse Practitioner] Beverly Tucker MD [Physician, Cardiology] - 1 week Referral Note: atrial flutter RVR, now sinus, Clinical Impression: Atrial flutter with rapid ventricular response Patient Instructions: Atrial Flutter (ED), Patient Portal & Valery Instructions Activity Restrictions/Additional Instructions: Please follow-up closely with cardiology and take your metoprolol and Eliquis to avoid fast heart rate and risk of blood clots causing strokes. Print Language: Mongolian Coding Level of Care Code ED Pinmaker for Chg Fwd Documented by User: Ernst Pandya MD 11/23/24 19:20 HPI - Arrhythmia/Palpitations General: Chief Complaint: Arrhythmia/Palpitations Stated Complaint: cardio sent, high hr, fluttering Time Seen by Provider: 11/23/24 15:36 Related Data Home Medications ?Medication ?Instructions ?Recorded ?Confirmed aspirin 81 mg tablet,delayed 81 mg PO DAILY 11/23/24 11/23/24 release insulin lispro 100 unit/mL 5 unit SUBCUT TID 11/23/24 11/23/24 subcutaneous pen (Humalog KwikPen (U-100) Insulin) Previous Rx's ?Medication ?Instructions ?Recorded pen needle, diabetic 29 gauge x #100 ea 08/25/24 1/ (Ultra-Thin II Insulin Pen Kimper) blood-glucose meter (Glucocard 01 #1 ea 08/26/24 Meter kit) mupirocin 2 % topical ointment 1 applic topical TID #15 grams 08/27/24 ([facility]) Wheelchair with elevated leg rest #1 ea 09/01/24 to left blood-glucose sensor (Dexcom G6 #3 ea 09/21/24 Sensor device) blood-glucose transmitter (Dexcom #1 ea 09/21/24 G6 Transmitter device) glucagon HCl 1 mg solution for 1 mg IM Q20M PRN hypoglycemia #1 ea 09/21/24 injection (Glucagon (HCl) Emergency Kit) metoprolol succinate 25 mg capsule 25 mg PO DAILY #30 ea 09/28/24 sprinkle, ext. release 24 hr insulin glargine 100 unit/mL (3 30 unit (0.3 mL) SUBCUT DAILY #15 10/26/24 mL) subcutaneous pen (Lantus mL Solostar U-100 Insulin) CAM walker #1 ea 11/09/24 Diabetic Shoes with Inserts and #1 ea 11/16/24 Toe Filler to the Left blood-glucose sensor (Dexcom G7 #9 ea 11/19/24 Sensor device) blood-glucose,assessment specialist,cont #1 ea 11/19/24 (Dexcom G7 Graffiti Cleaner) apixaban 5 mg tablet (Eliquis) 5 mg PO BID #60 tabs 11/23/24 Allergies Allergy/AdvReac Type Severity Reaction Status Date / Time No Known Allergies Allergy Verified 11/23/24 14:49 [facility] ED PFSH: Medical History Hyperlipemia, mixed Diabetes mellitus Surgical History History of nasal surgery at age 3 due to being hit by a baseball. History of incision and drainage of his posterior neck due to a spider bite in 2019 Family History Father Diabetes mellitus, type 2 Hypertension Atrial fibrillation Family/Other Stroke uncle- maternal Denies family history of Diabetes Heart disease Chronic kidney disease (CKD) Cancer Thyroid disease Social History Smoking and tobacco/nicotine status: never used tobacco/nicotine Alcohol intake: never Substance/Drug Use: former Date of last use: 2021 Former substance use details: last tried an edible in 2021 Course Vital Signs: Vital signs: Vital Signs Temperature 97.9 F 11/23/24 15:28 Pulse Rate 81 11/23/24 19:34 Respiratory Rate 18 11/23/24 19:34 Blood Pressure 115/81 11/23/24 19:34 Pulse Oximetry 99 11/23/24 19:34 Oxygen Delivery Wy thod Room Air 11/23/24 15:28 MDM - Arrhythmia/Palpitations Medical Decision Making Patient signed out to me at shift change by Dr. Lorenz. This is Dr. Pandya. Review the chart shows that he was seen at cardiology clinic where they assessed his EKG to be atrial flutter with RVR. Another EKG showed what appeared to be SVT. He is uncertain how long his heart was beating rapidly as he had no chest pain, shortness of breath, lightheadedness, or other symptoms such as palpitations which would alert him to the phenomenon. To mitigate embolic risk, he will be started on Eliquis and was given a first dose of Lovenox here in the emergency department. My review of the EKGs is less certain of the diagnosis of atrial flutter and I suspect it is possible that all EKGs on the chart show SVT as opposed to atrial flutter with RVR. Patient is low risk for fall and I do not feel that anticoagulation will harm him in any significant way and he will follow-up with cardiology to make sure he remains in sinus rhythm and assess whether further anticoagulation is warranted Lab Data 11/23/24 15:44 11/23/24 15:44 Radiology Impressions Chest X-Ray 11/23/24 15:45 IMPRESSION: Minimal opacity in the right upper lobe. Laboratory Results WBC 7.30 10^3/uL (3.29-11.43) 11/23/24 15:44 RBC 4.98 10^6/uL (3.85-5.65) 11/23/24 15:44 Hgb 14.10 g/dL (11.27-16.99) 11/23/24 15:44 Hct 41.4 % (37-53) 11/23/24 15:44 MCV 83.1 fl (82-101) 11/23/24 15:44 MCH 28.3 pg (27-33) 11/23/24 15:44 MCHC 34.1 g/dL (30-55) 11/23/24 15:44 RDW 13.9 % (12.1-15.1) 11/23/24 15:44 Plt Count 303 10^3/cmm (157-399) 11/23/24 15:44 MPV 9.8 fL (7.4-10.4) 11/23/24 15:44 Neut % (Auto) 52.0 % 11/23/24 15:44 Lymph % (Auto) 37.1 % 11/23/24 15:44 [place] % (Auto) 6.8 % 11/23/24 15:44 Eos % (Auto) 3.0 % 11/23/24 15:44 Baso % (Auto) 1.0 % 11/23/24 15:44 Neut # (Auto) 3.79 10^3/uL (1.8-7.7) 11/23/24 15:44 Lymph # (Auto) 2.7 10^3/uL (0.8-4.8) 11/23/24 15:44 [place] # (Auto) 0.5 10^3/uL (0.2-0.9) 11/23/24 15:44 Eos # (Auto) 0.2 10^3/uL (0.0-0.8) 11/23/24 15:44 Baso # (Auto) 0.1 10^3/uL (0.0-0.1) 11/23/24 15:44 Nucleated RBC % (auto) 0 % 11/23/24 15:44 Nucleated RBCs # 0.0 /100WBC 11/23/24 15:44 Sodium 137 mmol/L (136-145) 11/23/24 15:44 Potassium 4.9 mmol/L (3.5-5.1) 11/23/24 15:44 Chloride 104 mmol/L (98-107) 11/23/24 15:44 Carbon Dioxide 23 mmol/L (22-29) 11/23/24 15:44 Anion Gap 14.9 (5-19) 11/23/24 15:44 BUN 20 mg/dL (6-20) 11/23/24 15:44 Creatinine 0.8 mg/dL (0.7-1.2) 11/23/24 15:44 GFR Calculation 109.4 mL/min (90-130) 11/23/24 15:44 Glucose 161 mg/dL (65-115) H 11/23/24 15:44 Calculated Osmolality 290 mOsm/kg (285-295) 11/23/24 15:44 Calcium 9.2 mg/dL (8.5-10.5) 11/23/24 15:44 Total Bilirubin 0.5 mg/dL (0.15-1.2) 11/23/24 15:44 AST 14 U/L (0-40) 11/23/24 15:44 ALT 19 U/L (0-41) 11/23/24 15:44 Alkaline Phosphatase 92 U/L (40-130) 11/23/24 15:44 Troponin T Baseline 18 ng/L (0-15) H 11/23/24 15:44 Troponin T 120 Minute 13.84 ng/L (0-15) 11/23/24 17:43 Delta Troponin T -4.16 ABS# (0-10) L 11/23/24 17:43 Total Protein 7.1 g/dL (6.6-8.7) 11/23/24 15:44 Albumin 4.2 g/dL (3.5-5.2) 11/23/24 15:44 Globulin 2.9 g/dL (1.3-4.6) 11/23/24 15:44 TSH 1.74 uIU/mL (0.27-4.20) 11/23/24 15:44 Urine Color Yellow (Yellow) 11/23/24 18:59 Urine Appearance Clear (CLEAR) 11/23/24 18:59 Urine pH 5.5 (5-7) 11/23/24 18:59 Ur Specific [place] 1.029 (1.005-1.030) 11/23/24 18:59 Urine Protein Negative (Negative) 11/23/24 18:59 Urine Glucose (UA) Negative (Normal) 11/23/24 18:59 Urine Ketones Trace (Negative) 11/23/24 18:59 Urine Blood Negative (Negative) 11/23/24 18:59 Urine Nitrate Negative (Negative) 11/23/24 18:59 Urine Bilirubin Negative (Negative) 11/23/24 18:59 Urine Urobilinogen 1.0 mg/dL (Negative) 11/23/24 18:59 Ur Leukocyte Esterase Negative (Negative) 11/23/24 18:59 Urine RBC 0-2 /hpf (0-2) 11/23/24 18:59 Urine WBC 0-5 /hpf (0-5) 11/23/24 18:59 Ur Squamous Epith Cells 0-5 /hpf (0-5) 11/23/24 18:59 Amorphous Sediment Not Reportable 11/23/24 18:59 Urine Bacteria None seen /hpf (NONE) 11/23/24 18:59 Hyaline Casts 2.46 /lpf 11/23/24 18:59 All radiology interpretation(s) finalized by discharge EKG Data EKG 1: Interpretation: Time?1614?sinus rhythm, rate of 85, no ST segment elevation or depression, no T wave inversions, QTc = 361 Other EKG comments: Chest X-Ray 11/23/24 15:45 IMPRESSION: Minimal opacity in the right upper lobe. Discharge Plan Discharge Patient Disposition: Home Clinical Impression: Atrial flutter with rapid ventricular response Condition: Stable Prescriptions: New Eliquis 5 mg tablet 5 mg PO BID Qty: 60 0RF No Action metoprolol succinate 25 mg capsule,sprinkle,ER 24hr 25 mg PO DAILY Qty: 30 2RF (DME) Dexcom G7 Sensor Device See Rx Instructions .Route Qty: 9 1RF Rx Instructions: As directed (DME) Dexcom G7 Graffiti Cleaner Misc See Rx Instructions .Route Qty: 1 0RF Rx Instructions: As directed (DME) CAM walker See Rx Instructions .Route .MEDSUPPLY Qty: 1 0RF Rx Instructions: As directed ([facility] [place] [place]) Wheelchair with elevated leg rest to left See Rx Instructions .Route .MEDSUPPLY Qty: 1 0RF Rx Instructions: As directed Length of need is [id number] days insulin glargine [Lantus Solostar U-100 Insulin] 100 unit/mL (3 mL) insulin pen 30 unit SUBCUT DAILY Qty: 15 1RF (DME) Diabetic Shoes with Inserts and Toe Filler to the Left See Rx Instructions .Route .MEDSUPPLY Qty: 1 0RF Rx Instructions: As directed: [facility] ([facility] [place] [place]) pen needle, diabetic [Ultra-Thin II Ins Pen Kimper] 29 gauge x 1/2 needle See Rx Instructions .Route Qty: 100 0RF Rx Instructions: As directed ([facility] [place] [place]) blood-glucose meter [Glucocard 01 Meter] Kit See Rx Instructions .Route Qty: 1 0RF Rx Instructions: As directed mupirocin [Centany] 2 % ointment 1 applic topical TID Qty: 15 0RF Rx Instructions: Apply to right great toe 3 times daily with Band-Aid. aspirin 81 mg tablet,delayed release (DR/EC) 81 mg PO DAILY insulin lispro [Humalog KwikPen Insulin] 100 unit/mL insulin pen 5 unit SUBCUT TID (DME) Dexcom G6 Transmitter Device See Rx Instructions .Route Qty: 1 0RF Rx Instructions: As directed (DME) Dexcom G6 Sensor Device See Rx Instructions .Route Qty: 3 0RF Rx Instructions: As directed glucagon HCl [Glucagon (HCl) Emergency Kit] 1 mg recon soln 1 mg IM Q20M PRN (Reason: hypoglycemia) Qty: 1 0RF Rx Instructions: until target blood sugar attained Discharge Orders: Discharge ED (Routine); Ordered 11/23/24 Ordered By: Ernst Pandya Referrals: Citlalli Matthew FNP [Primary Care Provider, Nurse Practitioner] Beverly Tucker MD [Physician, Cardiology] - 1 week Referral Note: atrial flutter RVR, now sinus, Clinical Impression: Atrial flutter with rapid ventricular response Patient Instructions: Atrial Flutter (ED), Patient Portal & Valery Instructions Activity Restrictions/Additional Instructions: Please follow-up closely with cardiology and take your metoprolol and Eliquis to avoid fast heart rate and risk of blood clots causing strokes. Print Language: Mongolian Coding Level of Care Code ED Pinmaker for Carlee Cunninghma
[2024-11-23 15:53] LABS: Hematocrit 41.4 % (37-53); Hemoglobin 14.10 g/dL (11.27-16.99); Mean Corpuscular HGB Conc 34.1 g/dL (30-55); Mean Corpuscular Hemoglobin 28.3 pg (27-33); Mean Corpuscular Volume 83.1 fl (82-101); Nucleated Red Blood Cells % 0 %; Platelet Count 303 10^3/cmm (157-399); Red Blood Count 4.98 10^6/uL (3.85-5.65); White Blood Count 7.30 10^3/uL (3.29-11.43)
[2024-11-23] MEDS: dilTIAZem 5 mg/mL SDV 5 mL 10 MG IVP (16:03)
[2024-11-23 16:10] LABS: Troponin(5th) Baseline 18 ng/L (0-15)
--- NOTE | 2024-11-23 16:14 | ECG_ITS ---
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 Measurements Intervals [place] Rate: 85 P: 45 CO: 166 QRS: 50 QRSD: 104 T: 88 QT: 318 QTc: 380 Interpretive Statements SINUS RHYTHM Compared to ECG 11/23/2024 15:31:20 Supraventricular tachycardia no longer present Electronically Signed On 11-23-2024 18:13:30 CDT by Beverly Tucker M.D. [email or web address]
[2024-11-23 16:21] VITALS: BP 94/67; PULSE 86; RESP 16; O2SAT 97
[2024-11-23 16:33] LABS: Alanine Aminotransferase 19 U/L (0-41); Albumin Level 4.2 g/dL (3.5-5.2); Alkaline Phosphatase 92 U/L (40-130); Anion Gap 14.9 (5-19); Aspartate Amino Transferase 14 U/L (0-40); Blood Urea Nitrogen 20 mg/dL (6-20); Calcium 9.2 mg/dL (8.5-10.5); Carbon Dioxide 23 mmol/L (22-29); Chloride 104 mmol/L (98-107); Creatinine Clr Calc Pharmacy 158.7582; Globulin 2.9 g/dL (1.3-4.6); Glucose 161 mg/dL (65-115); Osmolality Calculated 290 mOsm/kg (285-295); Potassium 4.9 mmol/L (3.5-5.1); Sodium 137 mmol/L (136-145); Thyroid Stimulating Hormone 1.74 uIU/mL (0.27-4.20); Total Protein 7.1 g/dL (6.6-8.7)
[2024-11-23 18:05] VITALS: BP 117/78; PULSE 78; O2SAT 100
[2024-11-23 18:16] LABS: Troponin 5 2HR 13.84 ng/L (0-15); Troponin 5 2HR Delta -4.16 ABS# (0-10)
[2024-11-23 19:34] VITALS: BP 115/81; PULSE 81; RESP 18; O2SAT 99
[2024-11-23 20:10] LABS: Glucose Urine UA Negative (Normal); Nitrate Urine Negative (Negative); Specific Gravity, Urine 1.029 (1.005-1.030)
[2024-11-23 20:15] LABS: Add Urine Microscopic? YES
== END 2024-11-23 19:35 | disposition home or self-care (01) ==
PROVIDERS: Emergency Provider Family Medicine; PCP Nurse Practitioner
DX: I49.8 Other specified cardiac arrhythmias (principal); I48.92 Unspecified atrial flutter; Z79.4 Long term (current) use of insulin; Z79.82 Long term (current) use of aspirin; E11.9 Type 2 diabetes mellitus without complications; E78.2 Mixed hyperlipidemia
CPT/HCPCS: 36415; 71045; 80053; 81001; 84443; 84484; 85025; 93005; 96361; 96372; 96374; 99285; J1650; J3490; J7030